=== PATIENT | female | born 1960 | race Asian ===

== ENCOUNTER 2023-02-11 18:51 | Emergency (ER) | payer BC, SELFPAY ==
[2023-02-11] VITALS (35 sets, daily range): BP systolic 126–146; BP diastolic 64–86; PULSE 81–99; RESP 15–27; TEMP 37.2; O2SAT 97–99
--- NOTE | 2023-02-11 18:45 | RT.EKG_ITS ---
APPROVED REPORT Exam: Resting ECG Reason for Exam: chest pain Patient Location: E HR:91 bpm ECG Measurements Heart Rate 91 AXIS MS 145 P 32 QRSd 99 QRS 9 QT 376 T 10 QTc 464 Conclusion Sinus rhythm...normal P axis, V-rate 60- 99
--- NOTE | 2023-02-11 19:25 | DI.CT_ITS ---
Exam(s) CT THORAX ABD/PEL CTA EXAM: CT THORAX ABD/PEL CTA CLINICAL HISTORY: chest and central abdominal pain. TECHNIQUE: Imaging Protocol: Axial CT angiography was performed with multi-slice acquisition and mu lti-planar and/or 3D reconstructions. CONTRAST MATERIAL: Intravenous: Omnipaque 350 Contrast volume:100 ml COMPARISON: No exams were available for comparison FINDINGS: CHEST: Pulmonary Arteries: No evidence of filling defect to suggest pulmonary emboli. Tracheobronchial tree: Patent where visualized. Mediastinum and Vera: No dominant adenopathy or fluid collection. Pulmonary parenchyma: Dependent changes and respiratory motion at the lung bases. No consolidation o r dominant measurable mass. Pleura: No effusion or pneumothorax. Heart: The heart is not dilated. No coronary artery calcifications are seen. Significant motion art ifact at proximal aorta and pulmonary artery. Aorta: Ascending aorta measures 3.7 cm. No significant atherosclerotic changes. Bones: Normal. Tubes, Catheters, and Lines: None ABDOMEN: Liver: Normal density. No measurable mass. Portal, Superior Mesenteric, and Splenic Veins: Unremarkable. Gallbladder and Biliary Tract: No radiodense calculus or dilation. Pancreas: Normal density, no abnormal calcifications or inflammatory process. Spleen: Normal. Adrenals: No masses seen. Kidneys: Normal size, contour and axis. No radiodense stones or obstructive uropathy. No masses seen. Vasculature:: Abdominal aorta non-dilated. No visible atherosclerotic changes. No branch vessel occ lusion or significant stenosis. The celiac axis and SMA patent. Bowel: No obstruction or bowel wall thickening. Appendix is unremarkable. Moderate to increased sto ol. Small diverticulum of the descending duodenum. Peritoneal Cavity: No ascites, collection or mesenteric inflammatory response. Lymph Nodes: Within normal limits. Bones: Unremarkable. Soft Tissues: Unremarkable. PELVIS: Bladder: Symmetric distention, no gross wall thickening. Reproductive Organs: Unremarkable as visualized. Lymph Nodes: Within normal limits. Bones: Within normal limits. IMPRESSION: 1. No evidence of pulmonary embolism or other acute abnormality in the chest. No significant atheros clerotic changes. 2. No acute abdominal or pelvic process. RADIATION DOSE DELIVERED: 893.44mGy.cm Total DLP DATA REPOSITORY: All CT scans at this facility are submitted to the National Radiology Data Registry (NRDR) Dose Index Registry (DIR) with the [employer] (ACR). RADIATION OPTIMIZATION: All CT scans at this facility use at least one of these dose optimization te chniques: automated exposure control; mA and/or kV adjustment per patient size (includes targeted exa ms where dose is matched to clinical indication); or iterative reconstruction.
--- NOTE | 2023-02-11 19:26 | ED.GENADUL_ITS ---
Discharge Plan Disposition Patient Disposition: Home Condition: Stable Discharge Details Clinical Impression: Epigastric abdominal pain, Chest pain, Thrombocytopenia, Transaminitis Primary Care Provider: Unknown,Unknown ED Provider: Jaspal Leon Home Meds and New Rx's Prescriptions: New famotidine [Pepcid] 20 mg tablet 20 mg PO BID Qty: 60 0RF alum-mag hydroxide-simeth [Mylanta Maximum Strength] 400-400-40 mg/5 mL suspension 5 ml PO BID Qty: 355 0RF Discontinued omeprazole 20 mg Capsule,Delayed Release(Dr/Ec) 20 mg PO DAILY Discharge Instructions Instructions: Thrombocytopenia (ED), Epigastric Pain (ED) Additional Instructions: Your liver function test were elevated today. Your platelet counts were low. This needs to be followed by your doctor and additional diagnostic testing and treatment may be necessary. Please stop taking omeprazole. Blood testing is pending at time of discharge. Please be sure to follow-up with your primary care physician this week to review results and for reassessment. You should have a endoscopy performed. Please contact your primary care physician to arrange follow-up. Return to the ER immediately for any worsening or new concerning symptoms. Referrals: [facility] [Provider Group] [facility] [Provider Group] Medical Decision Making 1932 -- 62-year-old female with history of GERD, on PPI, here with epigastric abdominal pain occurring daily over the past 3 weeks as well as intermittent less frequent chest discomfort. Patient is hemodynamically stable. She does have epigastric abdominal tenderness with no peritoneal findings. She has no chest pain at this time. Considered ACS. EKG was reviewed and interpreted by me: Please report, sinus rhythm 91 bpm, normal axis, no STEMI, nondiagnostic. Concern for intra-abdominal surgical process including AAA versus gastric ulcer versus pancreatitis. Plan to obtain CTA of the chest abdomen pelvis. -- Labs reviewed: transaminitis and thrombocytopenia noted. Patient denies rash, fever, recent known tick bite. I will send tick panel. 2121 -- CT of the abd and pelv reviewed and interpreted by radiology: Mild dilatation of the ascending aorta measuring 3.65 cm. No evidence of aortic dissection. No significant atherosclerotic changes, arterial stenosis or occlusion. Mild degenerative changes in the lumbar spine. Gallbladder and bile ducts noted to be unremarkable with no calcified stones and no ductal dilatation. Liver noted no mass. Lungs do have mild patchy groundglass opacity in bilateral lower lungs and lingula. I have contacted [facility] to consult with hematology regarding thrombocytopenia. 2152 --patient reassessed and notes symptoms improved with Mylanta and Pepcid. I spoke with Dr. Ross, hematology special population paraprofessional at [facility], discussed ED presentation and course. He recommends sending additional blood test including peripheral smear to look for platelet clumping that would be indicative of pseudothrombocytopenia, folate, B12, copper, fibrinogen, coags. He does recommend stopping PPI as this may cause bone marrow suppression. Plan to initiate treatment with Pepcid and Mylanta. I will ask care management to help arrange outpatient follow-up with PCP. Patient will need close outpatient follow-up in the next couple days to follow-up on labs and reassess. Lab Data Lab results reviewed: Yes I reviewed the patient's lab results. Labs: Laboratory Tests Range/Units 02/11/23 02/11/23 19:20 19:20 WBC (4.4-10.8) 10^3/uL 4.07 L RBC (3.93-5.22) 10^6/uL 4.47 Hgb (11.2-15.7) g/dL 12.2 Hct (36.0-46.0) % 36.9 MCV (80-95) fL 83 MCH (27.0-33.0) pg 27.3 MCHC (32.0-36.0) % 33.1 RDW (11.7-14.6) % 17.8 H Plt Count (130-400) 10^3/uL 43 L MPV (8.0-11.0) fL 11.1 H Immature Gran % 0.0 Neutrophils % 34.0 Band Neutrophils % 2 Lymphocytes % 55.0 Atypical Lymphs % 5 Monocytes % 2.0 Eosinophils % 2.0 Basophils % 0.0 Nucleated RBC % (0.0-0.3) % 2.0 H Absolute Neutrophils (1.2-6.7) 10^3/uL 1.47 Absolute Lymphocytes (1.2-3.4) 10^3/uL 2.44 Absolute Monocytes (0.1-0.8) 10^3/uL 0.08 L Absolute Eosinophils (0.0-0.7) 10^3/uL 0.08 Absolute Basophils (0.0-0.2) 10^3/uL 0.00 RBC Morphology See Below Polychromasia Present Sodium (136-145) mmol/L 140 Potassium (3.5-5.1) mmol/L 3.9 Chloride (98-107) mmol/L 104 Carbon Dioxide (21.0-32.0) mmol/L 21.9 Anion Gap (3-11) mmol/L 14.1 H BUN (7-18) mg/dL 15 Creatinine (0.55-1.02) mg/dL 0.8 Est GFR (CKD-EPI 2020) (mL/min/1.73m2) 84.30 Glucose (74-106) mg/dL 89 Calcium (8.5-10.1) mg/dL 9.6 Magnesium (1.8-2.4) mg/dL 1.8 Total Bilirubin (0.2-1.0) mg/dL 2.0 H AST (15-37) U/L 155 H ALT (14-59) U/L 223 H Alkaline Phosphatase (46-116) U/L 275 H Troponin I (<or=60) ng/L < 50 Total Protein (6.4-8.2) g/dL 7.7 Albumin (3.4-5.0) g/dL 3.8 Lipase (16-77) U/L 65 HPI General Mode of arrival: ambulatory . Date/Time Provider Initiated Documentation: 02/11/23 19:03 . Limitations to Documentation: no limitations . Information obtained by: patient . HPI Narrative: 62-year-old female with history of GERD, on PPI chronically, here with chief complaint of abdominal pain. Patient notes upper abdominal pain that is been intermittent but occurring daily over the past 3 weeks. Discomfort is described as an ache and burning. Discomfort does radiate to her left back at times. Patient also notes intermittent chest discomfort described as tightness that occurs less frequently. Patient currently does have mild abdominal discomfort in her epigastric area. Patient denies nausea, vomiting, diarrhea, melena and bright red blood per rectum. She has never had a colonoscopy or endoscopy. Related Data Home Medications Medication Instructions Recorded Confirmed aluminum-mag hydroxide-simethicone 5 ml PO BID reflux #355 mL 02/11/23 400 mg-400 mg-40 mg/5 mL oral susp (Mylanta Maximum Strength) famotidine 20 mg tablet (Pepcid) 20 mg PO BID #60 tabs 02/11/23 Previous Rx's Medication Instructions Recorded aluminum-mag hydroxide-simethicone 5 ml PO BID reflux #355 mL 02/11/23 400 mg-400 mg-40 mg/5 mL oral susp (Mylanta Maximum Strength) famotidine 20 mg tablet (Pepcid) 20 mg PO BID #60 tabs 02/11/23 Allergies Allergy/AdvReac Type Severity Reaction Status Date / Time No Known Allergies Allergy Unverified 02/11/23 19:09 General Stated Complaint: Chest Pain RADHA: 3 PFSH All Active Problems (Updated 02/11/23 @ 22:28 by Jaspal Leon MD) Epigastric abdominal pain (Acute) Chest pain (Acute) Thrombocytopenia (Chronic) Transaminitis (Acute) Social History Smoking/Tobacco Use Status: Never Smoking risk assessment performed?: Yes Alcohol Intake: former Substance use type: does not use Do you feel safe at home: Yes Do you feel safe in your relationship?: Yes Exam Const General: cooperative and no acute distress HENMT Mouth: moist mucous membranes Eyes Conjunctivae: normal conjunctivae Sclera: normal sclerae Neck Neck: trachea midline and supple Resp Auscultation: clear to auscultation bilaterally, no rales, no rhonchi and no wheezes Cardio Rate: regular rate and not tachycardic Rhythm: regular rhythm Heart Sounds: no murmurs GI Palpation: soft, not firm, no guarding, no masses, not rigid and tender in the epigastrum Skin General skin exam: no rashes or lesions noted Neuro General: patient alert, patient awake and tone normal Extrem General: no edema Psych Appearance: grossly normal Mental Status: mental status grossly normal Course Vital Signs Vital signs: Vital Signs Temperature 37.2 C 02/11/23 19:00 Pulse 97 H 02/11/23 19:00 Respiratory Rate 22 02/11/23 19:00 Blood Pressure 143/82 H 02/11/23 19:00 Pulse Oximetry 98 02/11/23 19:00 Temperature 37.2 C 02/11/23 19:00 Temperature Source Oral 02/11/23 19:00 Pulse 97 H 02/11/23 19:00 Respiratory Rate 22 02/11/23 19:00 Respiratory Effort Normal 02/11/23 19:04 Respiratory Depth Normal 02/11/23 19:04 Respiratory Pattern Normal 02/11/23 19:04 Blood Pressure 143/82 H 02/11/23 19:00 Blood Pressure Position Supine 02/11/23 19:00 Pulse Oximetry 98 02/11/23 19:00 Oxygen Delivery Method Room Air 02/11/23 19:00 Oxygen Flow Rate 0 02/11/23 19:00 Pain Level 5 02/11/23 19:00
[2023-02-11 19:39] LABS: HCT 36.9 % (36.0-46.0); HGB 12.2 g/dL (11.2-15.7); MCH 27.3 pg (27.0-33.0); MCHC 33.1 % (32.0-36.0); MCV 83 fL (80-95); MPV 11.1 fL (8.0-11.0); RBC 4.47 10^6/uL (3.93-5.22); RDW 17.8 % (11.7-14.6); RDW-SD 51.1 fL; WBC 4.07 10^3/uL (4.4-10.8)
[2023-02-11] MEDS: Normal Saline Flush 10 ML SYR IVP ×2 (19:49→20:20)
[2023-02-11] MEDS: Famotidine 20 MG/2 ML VIAL IVP (19:49)
[2023-02-11] MEDS: Mylanta Suspension 30 ML CUP PO (19:49)
[2023-02-11 19:56] LABS: ALT 223 U/L (14-59); AST 155 U/L (15-37); Albumin 3.8 g/dL (3.4-5.0); Alkaline Phosphatase 275 U/L (46-116); Anion Gap 14.1 mmol/L (3-11); BUN 15 mg/dL (7-18); CO2 21.9 mmol/L (21.0-32.0); CREATININE 0.8 mg/dL (0.55-1.02); Calcium 9.6 mg/dL (8.5-10.1); Chloride 104 mmol/L (98-107); Glucose 89 mg/dL (74-106); Lipase 65 U/L (16-77); Magnesium 1.8 mg/dL (1.8-2.4); Potassium 3.9 mmol/L (3.5-5.1); Sodium 140 mmol/L (136-145); Total Protein 7.7 g/dL (6.4-8.2); Troponin I < 50 ng/L (<or=60)
[2023-02-11 19:58] LABS: Absolute Eosinophil Count 0.08 10^3/uL (0.0-0.7); Absolute Lymphocyte Count 2.44 10^3/uL (1.2-3.4); Absolute Monocyte Count 0.08 10^3/uL (0.1-0.8); Absolute Neutrophil Count 1.47 10^3/uL (1.2-6.7); Atypical Lymphocytes % 5; Bands % 2; Platelet Count 43 10^3/uL (130-400)
[2023-02-11 19:59] LABS: Diff Comment Manual Differential; Polychromasia Present
[2023-02-11] MEDS: Omnipaque 350 MG/ML 100 ML BTL IJ (20:20)
[2023-02-11] MEDS: Normal Saline - Diluent 50 ML VIAL IJ (20:20)
--- NOTE | 2023-02-11 21:18 | DI.VRAD_ITS ---
PROCEDURE INFORMATION: Exam: CTA Chest With Contrast CTA Abdomen and Pelvis With Contrast Exam date and time: 02/11/2023 8:25 PM Age: 62 years old Clinical indication: Other: Chest and central abdominal pain; Generalized TECHNIQUE: Imaging protocol: Computed tomographic angiography of the chest with contrast. Exam focused on the arteries. Computed tomographic angiography of the abdomen and pelvis with contrast. Exam focused on the arteries. 3D rendering (Not supervised by radiologist): MIP and/or 3D reconstructed images were created by the technologist. Radiation optimization: All CT scans at this facility use at least one of these dose optimization techniques: automated exposure control; mA and/or kV adjustment per patient size (includes targeted exams where dose is matched to clinical indication); or iterative reconstruction. Contrast material: OMNI 350; Contrast volume: 100 ml; Contrast route: INTRAVENOUS (IV); COMPARISON: No relevant prior studies available. FINDINGS: VASCULATURE: Pulmonary arteries: Normal. No pulmonary emboli. Aorta: There is mild fusiform dilation of the ascending aorta measuring maximum diameter of 3.65 cm. No evidence of aortic dissection Celiac trunk and mesenteric arteries: No occlusion or significant stenosis. Renal arteries: No occlusion or significant stenosis. Right iliac arteries: No occlusion or significant stenosis. Left iliac arteries: No occlusion or significant stenosis. CHEST: Lungs: Mild patchy ground-glass opacity noted in the bilateral lower lungs and lingula. Pleural spaces: Unremarkable. No pneumothorax. No pleural effusion. Heart: Unremarkable. No cardiomegaly. No pericardial effusion. ABDOMEN AND PELVIS: Liver: No mass. Gallbladder and bile ducts: Unremarkable. No calcified stones. No ductal dilation. Pancreas: Unremarkable. No mass. No ductal dilation. Spleen: Unremarkable. No splenomegaly. Adrenal glands: Unremarkable. No mass. Kidneys and ureters: Unremarkable. No solid mass. No hydronephrosis. Stomach and bowel: Unremarkable. No obstruction. No mucosal thickening. Appendix: No evidence of appendicitis. Intraperitoneal space: Unremarkable. No free air. No significant fluid collection. Urinary bladder: Unremarkable. No mass. Reproductive: Unremarkable as visualized. Lymph nodes: Unremarkable. No enlarged lymph nodes. Bones/joints: Mild degenerative changes noted in the lumbar spine. No vertebral body compression or acute fracture Soft tissues: Unremarkable. IMPRESSION: 1. Mild dilation of the ascending aorta measuring 3.65 cm. No evidence of aortic dissection. No significant atherosclerotic changes, arterial stenosis or occlusion. 2. Mild degenerative changes in the lumbar spine Dictated and Authenticated by: Roosevelt Wasserman MD. Ordering:ROSALIND Shay MD
--- NOTE | 2023-02-11 22:37 | NUR.NOTE ---
Referral to Care Management to expedite patient appointment with [facility] from March to 02/13/22 for thrombocytopenia, elevated LFT's, chest pain.Nursing Note:
[2023-02-11 22:39] LABS: INR 1.1 (0.9-1.1); PTT Activated 28.7 sec (21.5-31.9); Prothrombin Time 10.9 sec (9.3-11.0)
[2023-02-11 22:43] LABS: Troponin I < 50 ng/L (<or=60)
[2023-02-11 22:52] LABS: Bands % 3
[2023-02-11 22:54] LABS: Atypical Lymphocytes % 5
[2023-02-11 22:59] LABS: Diff Comment MAN
[2023-02-11 23:00] LABS: RBC Morphology Normal
[2023-02-11 23:05] LABS: Folate 7.9 ng/mL (8.6-20.0); Vitamin B12 328 pg/mL (193-986)
[2023-02-12 17:45] LABS: Fibrinogen 352 mg/dL (171-384)
[2023-02-13 12:10] LABS: Lyme Ab w Rflx to Lyme Confirm Negative (Negative)
[2023-02-13 19:21] LABS: Copper, Serum 136 mcg/dL (77-206)
[2023-02-15 17:52] LABS: Anaplasma phagocytophilum Negative (Negative); B. miyamotoi PCR Negative (Negative); Babesia divergens/MO-1 Negative (Negative); Babesia duncani Negative (Negative); Babesia microti Negative (Negative); Ehrlichia chaffeensis Negative (Negative); Ehrlichia ewingii/canis Negative (Negative); Ehrlichia muris eauclairensis Negative (Negative)
== END 2023-02-11 22:55 | disposition home or self-care (01) ==
PROVIDERS: Emergency Provider Student in an Organized Health Care Education/Training Program
DX: R10.13 Epigastric pain (principal); R07.9 Chest pain, unspecified; D69.6 Thrombocytopenia, unspecified; R74.01 Elevation of levels of liver transaminase levels; K21.9 Gastro-esophageal reflux disease without esophagitis
CPT/HCPCS: 71275; 80053; 82525; 83690; 85384; 87798; 93005; 96374; 99285; 74174; 82607; 82746; 83735; 84484; 85007; 85025; 85610; 85730; 86618; 93010; 99284; J3490

== ENCOUNTER 2023-02-26 16:28 | Outpatient (REF) | payer BC, SELFPAY ==
[2023-03-02 15:06] LABS: Helicobacter pylori Ag, Feces Positive (Negative)
== END 2023-02-26 16:29 | disposition home or self-care (01) ==
LOC: LBN 16:28
PROVIDERS: Visit Provider Nurse Practitioner Family
DX: R10.13 Epigastric pain (principal)
CPT/HCPCS: 87338

== ENCOUNTER 2023-03-02 00:26 | Outpatient (CLI) | payer BC, SELFPAY ==
--- NOTE | 2023-03-02 06:00 | ETT_ITS ---
APPROVED REPORT Exam: Exercise Treadmill Patient Location: Out-Patient Room/Bed: Stress Nurse: Azucena Garvin RN Ordering Provider:CHRISSY QURESHI, Contact Number: [phone] BMI: 27.97 Baseline Rhythm: Sinus Rhythm Indications: Chest Pain Medical History Medical History: AAA, Chest pain, thrombocytopenia, transaminitis Cardiac Medications: Pepcid Allergies: NKA Cardiac Risk Factors: None Previous Cardiac Procedures: None Pretest Chest Pain Characteristics: Stomach Pain Exercise History: Sedentary Physical Disabilities: None Lung Sounds: Clear to auscultation Heart Sounds: Regular Stress Test Details Test: Exercise stress testing was performed using a Jamar protocol. Rest Stress HR Resting HR Supine: 85 bpm Max Heart Rate (APMHR): 160 bpm Resting HR Standin bpm Target HR (85% APMHR): 136 bpm Max HR Achieved: 132 bpm % of APMHR: 83 Recovery HR: 90 bpm HR response to stress: Normal HR response to stress BP Resting BP Supine: 132/90 mmHg Resting BP Standin/84 mmHg Max BP: 144/88 mmHg Recovery BP: 130/84 mmHg BP response to stress: Normal blood pressure response to stress. ECG Resting ECG: Sinus Rhythm Ectopy: None Stress ECG: Sinus Tachycardia ST Change: No significant ST segment changes noted Arrhythmia: None Recovery ECG: Sinus Rhythm Recovery ST Change: No significant ST segment changes noted Recovery Arrhythmia: None Clinical Reason for Termination: Fatigue Stress Symptoms: Stomach Pain Exercise duration: 5 min24 sec Highest Stage Reached: Stage 2: 2.5 mph at 12% grade. Exercise capacity: 7.05 METs Angina Score: None Black Treadmill Score: 4.8 Rate Pressure Product: [id number] Stress ECG Conclusion 1. The resting electrocardiogram was normal 2. Patient exercised on the Jamar protocol and completed a workload of 7.05 METS 3. Peak heart rate achieved was 83% of predicted for age 4. Electrocardiographically the test was nondiagnostic due to inadequate heart rate. At that level o f exercise there was no evidence of myocardial ischemia Black Treadmill Score is 4.8 which is Moderate risk. Stress Test Summary STAGE Time (mins) Speed (mph) Grade (%) HR BP SpO2 SYMPTOMS METS Supine 85 132/90 Standing 102 138/84 1 3 1.7 10 120 4.5 1 min recovery 119 134/74 3 min recovery 92 144/88 6 min recovery 90 130/84 Non-Diagnostic, unable to reach THR. Stomach pain noted, however patient reports she has had the same stomach pain for 2 weeks. No other significant symptoms noted.
== END 2023-03-02 00:46 ==
LOC: DI 00:26
PROVIDERS: Visit Provider Nurse Practitioner Family
DX: R07.9 Chest pain, unspecified (principal)
CPT/HCPCS: 93017

== ENCOUNTER 2023-03-30 13:37 | Inpatient (IN) | payer BC, SELFPAY ==
[2023-03-30] VITALS (44 sets, daily range): BP systolic 106–141; BP diastolic 62–89; PULSE 83–104; RESP 15–24; TEMP 36.1–36.7; O2SAT 97–100
--- NOTE | 2023-03-30 | DI.CT_ITS ---
Exam(s) CT HEAD WO EXAM: CT HEAD WO CLINICAL HISTORY: headache, thrombocytopenia. TECHNIQUE: Imaging Protocol: Axial computed tomography images with coronal and sagittal reformatted images were created and reviewed COMPARISON: No exams were available for comparison FINDINGS: Ventricles and Extra axial spaces: Normal in size and morphology for the patient's age. Hemorrhage: None. Cerebral parenchyma: Normal. Midline shift: None. Brainstem/Cerebellum: Normal. Calvarium: Normal. Visualized Paranasal sinuses/Mastoids: Clear. Soft Tissues: Unremarkable. IMPRESSION: No acute intracranial process. RADIATION DOSE DELIVERED: 674.64mGy.cm Total DLP DATA REPOSITORY: All CT scans at this facility are submitted to the National Radiology Data Registry (NRDR) Dose Index Registry (DIR) with the [employer] (ACR). RADIATION OPTIMIZATION: All CT scans at this facility use at least one of these dose optimization te chniques: automated exposure control; mA and/or kV adjustment per patient size (includes targeted exa ms where dose is matched to clinical indication); or iterative reconstruction.
--- NOTE | 2023-03-30 13:53 | ED.GENADUL_ITS ---
Discharge Plan Disposition Patient Disposition: Admit to [facility] Discharge Details Clinical Impression: Thrombocytopenia, Anemia, Leukopenia, Hepatitis Admit Date/Time: 03/30/23 17:16 Admit Provider: Tra Pagan Attending Provider: Tra Pagan Primary Care Provider: Kannan Haro ED Provider: Zane Patel Discharge Data Discharge Date/Time-TO BE ENTERED AT DEPARTURE: 03/30/23 18:23 Medical Decision Making <Lam Isaac NP - Last Filed: 04/03/23 10:14> Patient being referred to the emergency department for chief complaint of abdominal pain and severely low platelets. Patient was seen at primary care office today and I spoke with Dr. Ozuna in regards to patient's case. Patient has been having abdominal pain for the past 2 months. She has a history of GERD and has been using omeprazole. Then tested positive for H. pylori which she took the antibiotics but over the last week or more she has noted some increased pain and discomfort. Only medication patient is on is omeprazole. Patient does have a language barrier as she is Japanese but her daughter speaks wonderful [place] and prefers to translate. Patient reports intermittent slight nosebleeds over the past couple weeks and some atypical bruising. Denies any vomiting blood, bloody bowel movements, blood in urination. Physical exam shows stable appearing patient with no hypotension, upper limits of normal for heart rate, patient does have tenderness in the right and left upper quadrants but otherwise exam is nondiagnostic. Patient does state slight dripping bloody nose but none noted on my initial exam. Will order labs including type and screen and did speak with daughter and patient in regards to high likelihood of transfusion. Reviewed patient's labs and patient does have slight anemia with hemoglobin of 8.1, she does have a emergent platelet count of 6. INR is 1.1, does have low carbon dioxide of 18.3, anion gap of 18.7, of concern patient has a bilirubin of 2.3, AST of 97, ALT is within normal range of 36 but alk phos is severely elevated at 557 with an albumin slightly low at 3.2. Lipase is normal. Review of urinalysis does show high specific gravity, trace blood proteins and some ketones are noted. Of concern was patient is positive for nitrites and has many bacteria present with a reflexive culture ordered. Will give patient fosfomycin. Patient is O+. Did discuss with patient and daughter risk versus benefit of platelet transfusion which after full discussion of this they were agreeable and 2 units were ordered. Will also perform CT imaging of the abdomen to make sure there is no internal bleeding or any other abnormalities given worsening abdominal pain. Patient signed out pending CT imaging, arrival of platelets to begin transfusion, and further discussion of case with hospitalist for admission. Lab Data Lab results reviewed: Yes I reviewed the patient's lab results. <Zane Patel MD - Last Filed: 03/30/23 19:37> Patient being referred to the emergency department for chief complaint of abdominal pain and severely low platelets. Patient was seen at primary care office today and I spoke with Dr. Ozuna in regards to patient's case. Patient has been having abdominal pain for the past 2 months. She has a history of GERD and has been using omeprazole. Then tested positive for H. pylori which she took the antibiotics but over the last week or more she has noted some increased pain and discomfort. Only medication patient is on is omeprazole. Patient does have a language barrier as she is Japanese but her daughter speaks wonderful [place] and prefers to translate. Patient reports intermittent slight nosebleeds over the past couple weeks and some atypical bruising. Denies any vomiting blood, bloody bowel movements, blood in urination. Physical exam shows stable appearing patient with no hypotension, upper limits of normal for heart rate, patient does have tenderness in the right and left upper quadrants but otherwise exam is nondiagnostic. Patient does state slight dripping bloody nose but none noted on my initial exam. Will order labs including type and screen and did speak with daughter and patient in regards to high likelihood of transfusion. Reviewed patient's labs and patient does have slight anemia with hemoglobin of 8.1, she does have a emergent platelet count of 6. INR is 1.1, does have low carbon dioxide of 18.3, anion gap of 18.7, of concern patient has a bilirubin of 2.3, AST of 97, ALT is within normal range of 36 but alk phos is severely elevated at 557 with an albumin slightly low at 3.2. Lipase is normal. Review of urinalysis does show high specific gravity, trace blood proteins and some ketones are noted. Of concern was patient is positive for nitrites and has many bacteria present with a reflexive culture ordered. Will give patient fosfomycin. Patient is O+. Did discuss with patient and daughter risk versus benefit of platelet transfusion which after full discussion of this they were agreeable and 2 units were ordered. Will also perform CT imaging of the abdomen to make sure there is no internal bleeding or any other abnormalities given worsening abdominal pain. HPI <Lam Isaac NP - Last Filed: 04/03/23 10:14> General Mode of arrival: ambulatory . Date/Time Provider Initiated Documentation: 03/30/23 13:53 . Limitations to Documentation: language barrier . Information obtained by: patient, family, RN/MD and RN notes reviewed . History of Present Illness 62 year old F presents to the emergency department with the chief complaint of Abdominal pain, severely low platelets, described as moderate and similar to prior episodes, Quality is described as aching, and is localized to the abdomen. Patient started experiencing this month(s) (2) and it has been constant. No relieving factors improve symptom(s), No exacerbating factors reported . Patient did receive the following treatments prior to arrival, none Related Data Home Medications Medication Instructions Recorded Confirmed omeprazole 20 mg capsule,delayed 20 mg PO DAILY #60 caps 03/30/23 03/30/23 release Previous Rx's Medication Instructions Recorded omeprazole 20 mg capsule,delayed 20 mg PO DAILY #60 caps 03/30/23 release Allergies Allergy/AdvReac Type Severity Reaction Status Date / Time No Known Allergies Allergy Unverified 03/30/23 13:56 General Stated Complaint: Abd Prob RADHA: 3 Review of Systems <GAVINO Aragon Last Filed: 04/03/23 10:14> Constitutional Constitutional: Denies chills, Denies fever(s) and Reports malaise ENT Ears, Nose, Mouth, and Throat: Reports epistaxis Cardiovascular Cardiovascular: Denies chest pain, Denies syncope and Denies dyspnea Respiratory Respiratory: Denies cough and Denies dyspnea Gastrointestinal Gastrointestinal: Reports as per HPI, Reports abdominal pain, Denies hematochezia, Reports nausea and Reports vomiting Genitourinary Genitourinary: Denies hematuria Integumentary/Breasts Skin/Breast: Reports unusual bruising Neurologic Neurologic: Denies syncope Hematologic/Lymphatic Hematologic/Lymphatic: Reports as per HPI, Reports easy bleeding and Reports easy bruising [facility] <Lam Isaac NP - Last Filed: 04/03/23 10:14> All Active Problems (Updated 04/01/23 @ 00:14 by JANELLE DOMINGUEZ) Elevated transaminase level (Acute) UTI (urinary tract infection) (Acute) Folic acid deficiency (Acute) Alkaline phosphatase elevation (Acute) Hyperbilirubinemia (Acute) Abnormal weight loss (Acute) Pancytopenia (Acute) Thrombocytopenia (Chronic) Anemia (Chronic) Leukopenia (Acute) Acute hepatitis (Acute) Helicobacter positive gastritis (Acute) AAA (abdominal aortic aneurysm) (Chronic) 02/11/2023 CT scan at ER: 3.65 CM --> annual US for now; discuss ASA and statin w/ pt Note that this is an incorrect diagnosis. No AAA was noted on either CT scan form either 02/11/23 nor from 03/30/23. She has dilated ascending thoracic aorta of 3.65 cm (addendum added per Dr. Pagan) Please make correction in patient's office note Social History Smoking/Tobacco Use Status: Never Second Hand Exposure: No Smoking risk assessment performed?: Yes Alcohol Intake: former Drug use: Never Substance use type: does not use Adopted: No Caregiver/Support person: No Foster care: No Household members: family Housing: house Number of Children: 4 Communication Needs: Language Barriers Do you need help understanding health information?: Always Pets and animals: No Sexually active: No Do you think of yourself as: straight/heterosexual Current gender identity: female What is your relationship status?: How often do you talk on the phone with friends or family?: once per week How often do you get together with friends or relatives?: once per week Do you belong to any clubs or organized social groups?: no Panel score (0-1 are the most socially isolated patients): 1 Emilia/Tenriism: Bahai Special emilia needs: No Seatbelt use: always Helmet use: Yes Helmet use: always Drive intox or ride w/intox commercial driver's license driver: No Do you feel safe at home: Yes Do you feel safe in your relationship?: Yes Exam <Lam Isaac NP - Last Filed: 04/03/23 10:14> Const General: cooperative Orientation: alert, awake and oriented x3 Resp Effort & Inspection: normal respiratory effort and able to speak in complete sentences Auscultation: clear to auscultation bilaterally Cardio Rate: regular rate Rhythm: regular rhythm Heart Sounds: S1 normal and S2 normal GI Palpation: soft, not firm, guarding in the RUQ, no masses, no pulsatile masses, not rigid, no splenomegaly and tender in the LUQ and in the RUQ Auscultation: normal bowel sounds Back/Spine/Pelvis Back: no CVA tenderness Neuro General: patient alert, patient awake, patient oriented x3, gait normal and moves all extremities <Zane Patel MD - Last Filed: 03/30/23 19:37> FAST Exam DATE OF EXAM: 03/30/23 TIME OF EXAM: 17:43 PROVIDER THAT PERFORMED THE STUDY: Zane Patel REASON FOR EXAM: Abdominal pain VISUALIZED STRUCTURES: Hepatorenal space, Pelvis and Perisplenic space DIFFERENTIAL DIAGNOSES: hepatosplenomegaly, normal CBD 6.4 mm, normal pancreas, normal portal vein, normal kidneys, normal aorta at SMA level Limited Transthoracic Exam: Exam complete Limited Abdominal Exam: Exam complete Limited Retroperitoneal Exam: Exam complete Sign Out <Lam Isaac NP - Last Filed: 04/03/23 10:14> Sign Out Data: Sign Out Comment: Patient pending CT scan and discussion of admission with hospitalist for suspected hepatitis with severe thrombocytopenia. Last updated by Lam Isaac NP at 03/30/23 15:39 <Zane Patel MD - Last Filed: 03/30/23 19:37> FAST Exam DATE OF EXAM: 03/30/23 TIME OF EXAM: 17:43 PROVIDER THAT PERFORMED THE STUDY: Zane Patel REASON FOR EXAM: Abdominal pain VISUALIZED STRUCTURES: Hepatorenal space, Pelvis and Perisplenic space Limited Transthoracic Exam: Exam complete Limited Abdominal Exam: Exam complete Limited Retroperitoneal Exam: Exam complete
[2023-03-30 14:18] LABS: HCT 24.8 % (36.0-46.0); HGB 8.1 g/dL (11.2-15.7); MCH 32.1 pg (27.0-33.0); MCHC 32.7 % (32.0-36.0); MCV 98 fL (80-95); RBC 2.52 10^6/uL (3.93-5.22); RDW 22.5 % (11.7-14.6); RDW-SD 78.7 fL; WBC 3.28 10^3/uL (4.4-10.8)
[2023-03-30 14:32] LABS: INR 1.1 (0.9-1.1); PTT Activated 27.9 sec (21.5-31.9); Prothrombin Time 11.3 sec (9.3-11.0)
--- NOTE | 2023-03-30 14:32 | NUR.NOTE ---
Nursing Note:dAUGHTER REMAINS IN ROOM W/PT. PT DOES NOT SPEAK PARAGUAYAN, REQUEST DAUGHTER TO TRANSLSATE, DAUGHTER COMFORTABLE & ATTENDS APPOINTMENTS W/MOTHER, PROVIDER AWARE.
[2023-03-30 14:36] LABS: ALT 36 U/L (14-59); AST 97 U/L (15-37); Albumin 3.2 g/dL (3.4-5.0); Alkaline Phosphatase 557 U/L (46-116); BUN 13 mg/dL (7-18); Bilirubin, Total 2.3 mg/dL (0.2-1.0); Calcium 9.2 mg/dL (8.5-10.1); Chloride 102 mmol/L (98-107); Estimated GFR 64.49 (mL/min/1.73m2); Glucose 103 mg/dL (74-106); Lipase 74 U/L (16-77); Magnesium 1.9 mg/dL (1.8-2.4); Potassium 4.2 mmol/L (3.5-5.1); Sodium 139 mmol/L (136-145); Total Protein 7.3 g/dL (6.4-8.2)
[2023-03-30 14:41] LABS: CO2 18.3 mmol/L (21.0-32.0)
[2023-03-30 14:42] LABS: Anion Gap 18.7 mmol/L (3-11)
[2023-03-30 14:46] LABS: Absolute Monocyte Count 0.03 10^3/uL (0.1-0.8); Absolute Neutrophil Count 0.72 10^3/uL (1.2-6.7); Atypical Lymphocytes % 2; Bands % 3; Platelet Count 6 10^3/uL (130-400)
[2023-03-30 14:47] LABS: Bilirubin Moderate (Negative); Blood Trace-intact (Negative); Clarity Clear (Clear); Glucose Negative (Negative); Ketones 40 mg/dL (Negative); Leukocyte Esterase Negative (Negative); Nitrite Positive (Negative); Specific Gravity >= 1.030 (1.005-1.025); pH 5.5 (5-8)
[2023-03-30 14:47] LABS: Absolute Basophil Count 0.07 10^3/uL (0.0-0.2); Anisocytosis 2+; Diff Comment Manual Differential; Metamyelocytes % 1; Myelocytes % 1; Other Cells % 3
[2023-03-30 15:00] LABS: Bacteria Many HPF (Negative); Casts Negative LPF (Negative); Crystals Negative HPF (Negative); Epithelial Cells Rare HPF (Negative); Mucus Trace (Negative); Other Cells Negative (Negative)
--- NOTE | 2023-03-30 15:00 | DI.CT_ITS ---
Exam(s) CT ABDOMEN PELVIS W EXAM: CT ABDOMEN PELVIS W CLINICAL HISTORY: Abdominal pain, abnormal LFTs and platelets TECHNIQUE: Imaging Protocol: Axial computed tomography images with coronal and sagittal reformatted images were created and reviewed CONTRAST MATERIAL: Intravenous: Omnipaque 350 Contrast volume:100 mL Oral: No COMPARISON: CT CT THORAX ABD/PEL CTA from 02/11/2023 FINDINGS: ABDOMEN: Lung Bases: Mild atelectatic changes are seen in the lung bases. Liver: Normal density. There is a 2-3 mm round hypodensity in the left lobe of the liver. It is too small for further characterization. Portal, Superior Mesenteric, and Splenic Veins: Unremarkable. Gallbladder and Biliary Tract: No radiodense calculus or dilation. Pancreas: Normal density, no abnormal calcifications or inflammatory process. Spleen: Normal. Adrenals: No masses seen. Kidneys: Normal size, contour and axis. No radiodense stones or obstructive uropathy. No masses seen. Abdominal Aorta: Abdominal portion non-dilated. Bowel: No obstruction or bowel wall thickening. There is no evidence of appendicitis. There is a div erticulum associated with the duodenum adjacent to the head of the pancreas. Peritoneal Cavity: No ascites, collection or mesenteric inflammatory response. No free air. Lymph Nodes: Within normal limits. Bones: Within normal limits for the patient's age. Soft Tissues: Unremarkable. PELVIS: Bladder: Symmetric distention, no gross wall thickening. Reproductive Organs: Unremarkable as visualized. Lymph Nodes: Within normal limits. Bones: Within normal limits for the patient's age. IMPRESSION: 1. No acute abdominal or pelvic process. 2. Findings were discussed with Dr. Patel at 4:18 p.m. on 03/30/2023. RADIATION DOSE DELIVERED: 733.27mGy.cm Total DLP DATA REPOSITORY: All CT scans at this facility are submitted to the National Radiology Data Registry (NRDR) Dose Index Registry (DIR) with the [employer] (A[employer]). RADIATION OPTIMIZATION: All CT scans at this facility use at least one of these dose optimization te chniques: automated exposure control; mA and/or kV adjustment per patient size (includes targeted exa ms where dose is matched to clinical indication); or iterative reconstruction.
[2023-03-30 15:01] LABS: C & S Indicated? Yes
[2023-03-30] MEDS: Fosfomycin Tromethamine 3 GM PACKET PO (15:30)
--- NOTE | 2023-03-30 15:50 | NUR.NOTE ---
Nursing Note:PT TO DI FOR ORDERED EXAMS, CONSENT FOR BLOOD/PRODUCTS OBTAINED, VSS.
[2023-03-30] MEDS: Normal Saline - Diluent 50 ML VIAL IJ (15:58)
[2023-03-30] MEDS: Omnipaque 350 MG/ML 100 ML BTL IJ (15:59)
[2023-03-30] MEDS: Normal Saline Flush 10 ML SYR IVP (15:59)
[2023-03-30] MEDS: methylPREDNISolone SUCC 125 MG VIAL IVP (16:07)
--- NOTE | 2023-03-30 16:08 | NUR.NOTE ---
Nursing Note: PT RETURN FROM DI, MONITORS RESUMED, MEDICATED PER EMAR, VSS.
[2023-03-30] MEDS: DOXYCYCLINE 100 MG in Normal Saline 100 ML IVPB (16:43)
[2023-03-30 17:29] LABS: Lactate 7.7 mmol/L (0.6-1.4)
--- NOTE | 2023-03-30 17:50 | W.EDPROG ---
Date of service: 03/30/23 Time of Service: 15:00 Medical Decision Making MDM: Summary: Patient was signed out to me by nurse tae daley who presents to the emergency department for she has been having chronic abdominal pain since October and was noted by the PCP that her platelets have been dropping normal. Patient also had some nosebleeds that prompted come to the emergency department. She was seen by the previous provider Data Review Analysis All the data on this patient was reviewed by me including laboratory and imaging studies as well as bedside studies performed by me Independent review of Studies Imaging [id number] ultrasound was done by me which shows large hepatosplenomegaly with a normal common bile duct normal pancreas Lab: Labs show leukopenia thrombocytopenia and anemia with elevated LFTs. I have ordered early Babesia titer but markers for with a myeloproliferative disorder. Patient will be admitted mostly for the thrombocytopenia. Risk Stratification: Patient with pancytopenia and hepatosplenomegaly could have infectious etiology such as ehrlichiosis or Babesia but also could be Millipore 3 disorder. Due to the fact that she is profoundly thrombocytopenic she would need to be admitted for her treatment and further studies Differential Diagnosis: 1. Ehrlichiosis 2.Mieloproliferative disorder 3. 4. 5. Consultants: Consulted with hospitalist who agrees the patient will need to be admitted for further work-up Shared disposition: patient understands disposition agrees and will remain hospitalized Impression: Leukopenia, thrombocytopenia, anemia, hepatosplenomegaly Lab Data Lab results reviewed: Yes I reviewed the patient's lab results. Exam Narrative Exam Narrative: Exam; vitals signs as reported above normal Constitutional; In no acute distress, afebrile General: cooperative, healthy appearing, comfortable and no acute distress HEENT: Head: normal to inspection, no palpable skull fracture and normocephalic atraumatic Eyes: l: appearance normal, both eyes and all related structures Pupils: PERRL : EOM intact bilaterally Direct ophthalmoscopy: normal light reflex, normal conjunctiva, normal visual acuity Neck no JVD, supple non tender Neck: normal visual inspection, full ROM and no lymphadenopathy Chest: normal inspection of the chest Respiratory : normal respiratory effort and able to speak in complete sentences no wheezing no rales Cardio Rate: regular rate Rhythm: regular rhythm normal heart sounds S1 and S2 no murmurs, gallops, or rubs GI : Mild distention with liver palpable 10 cm below the right costal margin Back/Spine/ no CVA tenderness Thoracic/Lumbar Spine: no tenderness or deformities Skin no rashes or lesions Neuro: patient alert and no meningeal signs, Cranial Nerves: CN's II-XI intact bilaterally, Cognition: normal cognition, Speech: speech normal, Gait: normal gait, Depp tendon reflexes normal 2+ Extremities, no edema, full range of motion, normal strength Sign Out Sign Out Data: Sign Out Comment: Patient pending CT scan and discussion of admission with hospitalist for suspected hepatitis with severe thrombocytopenia. Last updated by Lam Daley NP at 03/30/23 15:39 Discharge Plan Disposition Patient Disposition: Admit to [facility] Discharge Details Clinical Impression: Thrombocytopenia, Anemia, Leukopenia, Hepatitis Admit Date/Time: 03/30/23 17:16 Admit Provider: Tra Pagan Attending Provider: Tra Pagan Primary Care Provider: Kannan Haro ED Provider: Zane Patel Exam (ED) FAST Exam DATE OF EXAM: 03/30/23 TIME OF EXAM: 17:00 PROVIDER THAT PERFORMED THE STUDY: Zane Patel IS THIS A REPEAT EXAM DURING THIS ENCOUNTER: no REASON FOR EXAM: Abdominal pain VISUALIZED STRUCTURES: Hepatorenal space, Pelvis and Perisplenic space PERTINENT FINDINGS/IMPRESSION: other (Hepatomegaly, splenomegaly, normal pancreas normal IVC normal aorta at the level of the superior mesenteric artery) impression: Hepatosplenomegaly Limited Transthoracic Exam: Exam complete Limited Abdominal Exam: Exam complete Limited Retroperitoneal Exam: Exam complete
[2023-03-30 18:12] LABS: Procalcitonin 0.4 ng/mL
--- NOTE | 2023-03-30 18:43 | W.PM.HP.N ---
Date of service: 03/30/23 Time of Service: 18:43 Assessment and Plan Assessment and plan (1) Pancytopenia: Status: Acute Assessment and plan: Her constellation of symptoms including 20 lb wt loss, night sweats and findings of hepatosplenomegaly and pancytopenia and transaminitis and hyperbilirbunemia suggests occult malignancy such as an infiltrative process such as lymphoma. However complicating matter is her folate deficiency which could explain the macrocytic anemia but not the liver and spleen problems. 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 I will transfuse platelets tonight and replace. Of note her peripheral blood smear was read as showing 3% blast forms. I ordered lymphoma/leukemia panel. I have re[place]contacted [facility] [place] and spoke w/ heme/onc fellow, Raissa Guido who asked that patient's labs be faxed to her and images pushed to [facility]. (2) Abnormal weight loss: Status: Acute Assessment and plan: 20 lb wt loss over 3month period (3) Alkaline phosphatase elevation: Status: Acute (4) Hyperbilirubinemia: Status: Acute (5) Elevated transaminase level: Status: Acute (6) Folic acid deficiency: Status: Acute Assessment and plan: patient has ongoing loss of folate. I have put her on replacement at 5 mg daily, I sent off homocysteine and MMA acid levels. (7) UTI (urinary tract infection): Status: Acute Assessment and plan: patient was treated in the ED w/ fosfomycin. History of Present Illness History of Present Illness Chief Complaint: pancytopenia Narrative: 62-year-old female Ukrainian who had been in good health until 2-1/2 months ago when she started experiencing epigastric abdominal pain. Initially she self treated for GERD with omeprazole but when the pain became worse she presented to the emergency department on February 11, 2023 where she was diagnosed with transaminitis and thrombocytopenia. Because of some atypical chest pain a complete CTA of the chest abdomen pelvis was performed. This showed no acute pulmonary or abdominal or pelvic process according to the radiologist interpretation. Her CBC at that time showed moderate thrombocytopenia with a platelet count of 43,000, no anemia her hemoglobin is 12.2 g with an RBC count of 4.4 million. White blood cell count was borderline low at 4000. There was an increase in the nucleated red blood cells at 2% with polychromasia RDW count was increased to 17.8%. Her CMP at that time showed an elevated bilirubin of 2.0 with transaminases including an AST 155, ALT 223, alkaline phosphatase 275 and a normal albumin of 3.8 and total protein 7.7. The ED provider consulted with [facility] [place]. Ross who advised further studies including hepatitis studies, tick panel, copper level, folate B12 and coag studies and recommend that the patient's stop her omeprazole as it may be causing bone marrow suppression. Patient was switched to Pepcid and Mylanta as the patient had no primary care provider she was referred to [facility] internal medicine. B12 was normal (328) but folate was low (7.9). Tick panel was done and was negative. Hepatitis profile was never done. Patient did not get started on folate replacement. Patient was seen at [facility] internal medicine clinic for follow-up visits on 02/26/2023 and 03/09/2023 and 03/23/2023 as well as being called today to emergently come into the hospital for pancytopenia workup. Because of ongoing epigastric abdominal pain and atypical chest pain she was scheduled for stress MPI which was negative for ischemia. Stool was tested for Helicobacter pylori which was positive and the patient was treated with antibiotic therapy and she was put back on omeprazole. Patient was then referred for EGD which has yet to be performed. Follow-up labs were obtained and when they came back showing pancytopenia she was referred to the emergency department for further evaluation. CBC demonstrated Hb 8.3 gm, Hct 24%, macrocytosis MCV 98, RDW 22.6, WBC 3220, neutropenia ANC 770, ALC 2190, monocytes 0, platelets 6000. CMP demonstrated normal electrolytes and BUN and creatinine but elevated AG of 18.7, HCO3 18.3, lactate 7.7, total bili 2.3, direct bilirubin 1.4, alkaline phosphatase 559, AST 97, normal ALT 34, total protein 7.4, albumin 3.2. CT scan of abdomen and pelvis was done while in the ER as well as having her labs repeated to confirm her hyperbilirubinemia, elevated alkaline phosphatase and pancytopenia. CT abdomen and pelvis demonstrated hepatosplenomegaly although the official radiology report was read as normal. Both the ED provider and myself disagree w/ the interpretation by the radiologist and feel that it was misinterpreted. Patient states she has had about a 20 pound weight loss over the last 3 months and about a 4 pound weight loss over the last week. She now weighs at 144 pounds. She has been having night sweats for the last several weeks and worsening abdominal pain and nausea and headaches. She also has been having epistaxis but no vomiting, hematemesis, melena. Patient is admitted now for treatment of her thrombocytopenia and to have a workup of her pancytopenia. Heme/onc was not consulted by the ED but I have called both [facility] to try to get her transferred for a bone marrow biopsy. Neither place had capacity for transfer and indicated that they did not anticipate having bed capacity in near future although they welcomed me to call back tomorrow. Review of Systems All systems reviewed & are unremarkable except as noted in HPI and below PFSH All Active Problems (Updated 03/30/23 @ 21:09 by Tra Pagan MD) Elevated transaminase level (Acute) UTI (urinary tract infection) (Acute) Folic acid deficiency (Acute) Alkaline phosphatase elevation (Acute) Hyperbilirubinemia (Acute) Abnormal weight loss (Acute) Pancytopenia (Acute) Thrombocytopenia (Chronic) Anemia (Chronic) Leukopenia (Acute) Hepatitis (Acute) Acute hepatitis (Acute) Helicobacter positive gastritis (Acute) AAA (abdominal aortic aneurysm) (Chronic) 02/11/2023 CT scan at ER: 3.65 CM --> annual US for now; discuss ASA and statin w/ pt Note that this is an incorrect diagnosis. No AAA was noted on either CT scan form either 02/11/23 nor from 03/30/23. She has dilated ascending thoracic aorta of 3.65 cm (addendum added per Dr. Pagan) Please make correction in patient's office note Social History Smoking/Tobacco Use Status: Never Second Hand Exposure: No Smoking risk assessment performed?: Yes Alcohol Intake: former Drug use: Never Substance use type: does not use Adopted: No Caregiver/Support person: No Foster care: No Household members: family Housing: house Number of Children: 4 Communication Needs: Language Barriers Do you need help understanding health information?: Always Pets and animals: No Sexually active: No Do you think of yourself as: straight/heterosexual Current gender identity: female What is your relationship status?: How often do you talk on the phone with friends or family?: once per week How often do you get together with friends or relatives?: once per week Do you belong to any clubs or organized social groups?: no Panel score (0-1 are the most socially isolated patients): 1 Emilia/Muslim: Anabaptism Special emilia needs: No Seatbelt use: always Helmet use: Yes Helmet use: always Drive intox or ride w/intox driver manager: No Do you feel safe at home: Yes Do you feel safe in your relationship?: Yes Meds Allergies and Home Medications Allergies Allergy/AdvReac Type Severity Reaction Status Date / Time No Known Allergies Allergy Unverified 03/30/23 13:56 Home Medications Medication Instructions Recorded Confirmed Type omeprazole 20 mg capsule,delayed 20 mg PO DAILY #60 caps 03/30/23 03/30/23 Rx release Exam Narrative Exam Narrative: Thin Ukrainian female who does not speak Armenian but we were able to communicate through her family. Her daughter served as her interpreter translator. HEENT is remarkable for slight scleral icterus, full EOMI, no visual field deficits. Hearing grossly intact. Oropharynx noninjected no exudate. Upper denture in place lower teeth in fair repair. Nares without epistaxis Neck is supple nontender no JVD normal carotid pulses no cervical lymphadenopathy or thyromegaly. However she has some shotty lymph nodes in the right supraclavicular fossa. Lungs are clear to auscultation Breast exam is unremarkable no palpable breast masses and no axillary adenopathy. Heart is regular rate and rhythm without murmur rub or gallop Abdomen reveals small scar in the right upper quadrant with the patient states she had a cyst removed. Liver is markedly enlarged with the tip of the liver felt clear down into the right lower quadrant. Spleen is markedly enlarged. She has diffuse tenderness particularly in the right and left upper quadrant. There is no rebound tenderness. There is some voluntary guarding when palpated over the right or left upper quadrant. Bowel sounds are active. No inguinal lymphadenopathy. Rectal exam deferred. Pelvic exam deferred. Extremities without peripheral cyanosis or edema. She has no epitrochlear lymph nodes. Neuroexam is grossly intact no focal motor or sensory deficits. She has normal range of motion and strength. Results Imaging Abdomen CT scan report/results: image reviewed CT scan - pelvis: image reviewed Labs 03/30/23 14:00 03/30/23 14:00 Labs: Laboratory Results - last 24 hr 03/30/23 03/30/23 03/30/23 12:34 14:00 14:00 WBC 3.28 L RBC 2.52 L Hgb 8.1 L Hct 24.8 L MCV 98 H MCH 32.1 MCHC 32.7 RDW 22.5 H Plt Count 6 L* MPV Immature Gran % 0.0 Neutrophils % 19.0 Band Neutrophils % 3 Lymphocytes % 68.0 Atypical Lymphs % 2 Monocytes % 1.0 Eosinophils % 0.0 Basophils % 2.0 Metamyelocytes % 1 Myelocytes % 1 Other Cells % 3 Nucleated RBC % 4.0 H Absolute Neutrophils 0.72 L Absolute Lymphocytes 2.30 Absolute Monocytes 0.03 L Absolute Eosinophils 0.00 Absolute Basophils 0.07 RBC Morphology See Below Anisocytosis 2+ PT INR APTT VBG Lactate Sodium 139 Potassium 4.2 Chloride 102 Carbon Dioxide 18.3 L Anion Gap 18.7 H BUN 13 Creatinine 1.0 Est GFR (CKD-EPI 2020) 64.49 Glucose 103 Calcium 9.2 Magnesium 1.9 Total Bilirubin 2.3 H AST 97 H ALT 36 Alkaline Phosphatase 557 H Total Protein 7.3 Albumin 3.2 L Lipase 74 Procalcitonin Urine Color Urine Clarity Urine pH Ur Specific [place] Urine Protein Urine Ketones Urine Blood Urine Nitrite Urine Bilirubin Urine Urobilinogen Ur Leukocyte Esterase Urine RBC Urine WBC Ur Epithelial Cells Urine Crystals Urine Bacteria Urine Casts Urine Mucus Urine Other Ur Culture Indicated? Urine Glucose Patient ABO/Rh O Positive Antibody Screen 03/30/23 03/30/23 03/30/23 14:00 14:00 14:34 WBC RBC Hgb Hct MCV MCH MCHC RDW Plt Count MPV Immature Gran % Neutrophils % Band Neutrophils % Lymphocytes % Atypical Lymphs % Monocytes % Eosinophils % Basophils % Metamyelocytes % Myelocytes % Other Cells % Nucleated RBC % Absolute Neutrophils Absolute Lymphocytes Absolute Monocytes Absolute Eosinophils Absolute Basophils RBC Morphology Anisocytosis PT 11.3 H INR 1.1 APTT 27.9 VBG Lactate Sodium Potassium Chloride Carbon Dioxide Anion Gap BUN Creatinine Est GFR (CKD-EPI 2020) Glucose Calcium Magnesium Total Bilirubin AST ALT Alkaline Phosphatase Total Protein Albumin Lipase Procalcitonin Urine Color Yellow Urine Clarity Clear Urine pH 5.5 Ur Specific [place] >= 1.030 H Urine Protein Trace H Urine Ketones 40 H Urine Blood Trace-intact H Urine Nitrite Positive H Urine Bilirubin Moderate H Urine Urobilinogen 1.0 H Ur Leukocyte Esterase Negative Urine RBC 3-5 H Urine WBC 3-5 Ur Epithelial Cells Rare Urine Crystals Negative Urine Bacteria Many Urine Casts Negative Urine Mucus Trace Urine Other Negative Ur Culture Indicated? Yes Urine Glucose Negative Patient ABO/Rh O Positive Antibody Screen NEGATIVE 03/30/23 17:23 WBC RBC Hgb Hct MCV MCH MCHC RDW Plt Count MPV Immature Gran % Neutrophils % Band Neutrophils % Lymphocytes % Atypical Lymphs % Monocytes % Eosinophils % Basophils % Metamyelocytes % Myelocytes % Other Cells % Nucleated RBC % Absolute Neutrophils Absolute Lymphocytes Absolute Monocytes Absolute Eosinophils Absolute Basophils RBC Morphology Anisocytosis PT INR APTT VBG Lactate 7.7 H* Sodium Potassium Chloride Carbon Dioxide Anion Gap BUN Creatinine Est GFR (CKD-EPI 2020) Glucose Calcium Magnesium Total Bilirubin AST ALT Alkaline Phosphatase Total Protein Albumin Lipase Procalcitonin 0.4 Urine Color Urine Clarity Urine pH Ur Specific [place] Urine Protein Urine Ketones Urine Blood Urine Nitrite Urine Bilirubin Urine Urobilinogen Ur Leukocyte Esterase Urine RBC Urine WBC Ur Epithelial Cells Urine Crystals Urine Bacteria Urine Casts Urine Mucus Urine Other Ur Culture Indicated? Urine Glucose Patient ABO/Rh Antibody Screen Last Vital Signs Temp 36.5 C 03/30/23 13:50 Pulse 91 H 03/30/23 18:00 Resp 19 03/30/23 18:10 BP 126/76 03/30/23 18:00 Pulse Ox 98 03/30/23 18:10 Time Spent Time spent with Patient: >75 minutes Time was spent: preparing to see the patient(eg.review tests), obtaining and/or reviewing separately otained hiistory, ordering medications,tests, procedures, referring, communicating with other health residential caregiver, indepentently interpreting results, counseling the patient and care coordination
--- NOTE | 2023-03-30 19:00 | NUR.NOTE ---
Nursing Note: pt was received to this business writer from the ER, VS were taken and documented and report was given to next nurse
[2023-03-30 19:58] LABS: Folate 3.4 ng/mL (8.6-20.0); Vitamin B12 213 pg/mL (193-986)
[2023-03-30] MEDS: Folic Acid 1 MG TAB 5 MG PO (20:40)
[2023-03-30] MEDS: Acetaminophen 325 MG TAB PO (20:41)
[2023-03-30] MEDS: Sodium Bicarbonate 650 MG TAB PO (21:39)
[2023-03-30] MEDS: HYDROmorphone 2 MG TAB PO (21:46)
[2023-03-30 23:33] LABS: D-Dimer 986 ng/mlFEU (<500)
--- NOTE | 2023-03-30 23:43 | DI.VRAD_ITS ---
PROCEDURE INFORMATION: Exam: CT Head Without Contrast Exam date and time: 03/30/2023 11:20 PM Age: 62 years old Clinical indication: Pain; Headache not specified; Patient HX: Headache, thrombocytopenia TECHNIQUE: Imaging protocol: Computed tomography of the head without contrast. Radiation optimization: All CT scans at this facility use at least one of these dose optimization techniques: automated exposure control; mA and/or kV adjustment per patient size (includes targeted exams where dose is matched to clinical indication); or iterative reconstruction. COMPARISON: No relevant prior studies available. FINDINGS: Brain: Mild volume loss No hemorrhage. Unremarkable white matter. No mass effect. Cerebral ventricles: No ventriculomegaly. Paranasal sinuses: Visualized sinuses are unremarkable. No fluid levels. Mastoid air cells: Visualized mastoid air cells are well aerated. Bones/joints: Unremarkable. No acute fracture. Soft tissues: Unremarkable. IMPRESSION: No acute intracranial abnormality. Dictated and Authenticated by: Donato Amaya MD. Ordering:ADRIAN Berger MD
[2023-03-31] VITALS (14 sets, daily range): BP systolic 108–123; BP diastolic 70–80; PULSE 83–109; RESP 16–20; TEMP 35.2–37.1; O2SAT 95–99
--- NOTE | 2023-03-31 | DI.CT_ITS ---
Exam(s) CT CHEST W EXAM: CT CHEST W CLINICAL HISTORY: pancytopenia, hepatosplenomegaly, weight loss, TECHNIQUE: Imaging Protocol: Axial computed tomography images with coronal and sagittal reformatted images were created and reviewed CONTRAST MATERIAL: Intravenous: Omnipaque 350Contrast volume:70 mL. COMPARISON: CT CT THORAX ABD/PEL CTA from 02/11/2023 FINDINGS: Tracheobronchial tree: Patent where visualized. There is again seen a small diverticulum to the right of the trachea and esophagus at the thoracic inlet. Pulmonary parenchyma: No dominant measurable mass. No architectural distortion. Linear infiltrates a re seen in the left lingula and left lower lobe which may represent atelectasis or pneumonia. Mediastinum and Vera: No dominant adenopathy or fluid collection. The esophagus is unremarkable. Thyroid gland: There is an 8 mm hypodensity in the inferior pole of the right thyroid gland. No foll ow-up is recommended. Pleura: No effusion or pneumothorax. Heart: The heart is not dilated. No coronary artery calcifications are seen. No pericardial effusion. Aorta: The ascending thoracic aorta measures 4.1 x 4 cm. No dissection is appreciated. Pulmonary arteries: The pulmonary arteries are inadequately opacified for evaluation of peripheral pu lmonary emboli. No large central pulmonary embolus is seen. Lymph nodes: Within normal limits. Bones: Within normal limits for the patient's age. No aggressive osseous lesions are identified. Soft tissues: Unremarkable. IMPRESSION: 1. No evidence of a thoracic mass or metastatic disease. 2. 4.1 x 4 cm thoracic ascending aorta. RADIATION DOSE DELIVERED: 403.42mGy.cm Total DLP DATA REPOSITORY: All CT scans at this facility are submitted to the National Radiology Data Registry (NRDR) Dose Index Registry (DIR) with the [employer] (ACR). RADIATION OPTIMIZATION: All CT scans at this facility use at least one of these dose optimization te chniques: automated exposure control; mA and/or kV adjustment per patient size (includes targeted exa ms where dose is matched to clinical indication); or iterative reconstruction.
[2023-03-31 07:36] LABS: Lactate 9.7 mmol/L (0.6-1.4)
[2023-03-31 07:38] LABS: Abs Immature Grans 0.15 10^3/uL (0.0-0.06); HCT 21.9 % (36.0-46.0); HGB 7.3 g/dL (11.2-15.7); MCH 32.7 pg (27.0-33.0); MCHC 33.3 % (32.0-36.0); MCV 98 fL (80-95); MPV 12.5 fL (8.0-11.0); RBC 2.23 10^6/uL (3.93-5.22); RDW 22.6 % (11.7-14.6); RDW-SD 79.5 fL; WBC 3.34 10^3/uL (4.4-10.8)
[2023-03-31] MEDS: Folic Acid 1 MG TAB 5 MG PO (08:00)
--- NOTE | 2023-03-31 08:00 | DI.RAD_ITS ---
Exam(s) XR BONE SURVEY EXAM: XR BONE SURVEY CLINICAL HISTORY: pain, elevated alkaline phosphatase. TECHNIQUE: 2D digital imaging was performed. COMPARISON: No exams were available for comparison FINDINGS: No evidence of fracture. No bony abnormality identified. Soft tissues are unremarkable. HEAD AND NECK: Normal. CHEST AND RIBS: Normal. PELVIS: Normal. LONG BONES: Normal. SPINE:Normal. IMPRESSION: No lytic or sclerotic lesions are seen. DATA REPOSITORY: RADIATION DOSE DELIVERED:
[2023-03-31 08:01] LABS: Reticulocyte 3.2 % (0.5-2.4)
[2023-03-31] MEDS: Pantoprazole 40 MG TABCR PO (08:01)
[2023-03-31] MEDS: Sodium Bicarbonate 650 MG TAB PO ×4 (08:02→20:43)
[2023-03-31 08:03] LABS: INR 1.1 (0.9-1.1); Prothrombin Time 10.8 sec (9.3-11.0)
[2023-03-31 08:12] LABS: ALT 32 U/L (14-59); AST 83 U/L (15-37); Alkaline Phosphatase 471 U/L (46-116); Anion Gap 18.7 mmol/L (3-11); BUN 13 mg/dL (7-18); Bilirubin, Total 1.8 mg/dL (0.2-1.0); CO2 16.3 mmol/L (21.0-32.0); CREATININE 0.9 mg/dL (0.55-1.02); Calcium 8.9 mg/dL (8.5-10.1); Chloride 105 mmol/L (98-107); Estimated GFR 73.19 (mL/min/1.73m2); Glucose 146 mg/dL (74-106); Magnesium 1.9 mg/dL (1.8-2.4); Potassium 4.5 mmol/L (3.5-5.1); Sodium 140 mmol/L (136-145)
[2023-03-31 08:23] LABS: LDH 1614 U/L (81-234); TSH (W/Ref FT4) 0.91 uIU/mL (0.36-3.74)
[2023-03-31 08:27] LABS: Platelet Count 26 10^3/uL (130-400)
[2023-03-31 08:28] LABS: Absolute Lymphocyte Count 1.74 10^3/uL (1.2-3.4); Absolute Neutrophil Count 1.24 10^3/uL (1.2-6.7); Atypical Lymphocytes % 2; Bands % 2
[2023-03-31 08:29] LABS: Myelocytes % 1; Other Cells % 10
[2023-03-31 08:30] LABS: Anisocytosis 2+; Diff Comment Manual Differential; Polychromasia Present
--- NOTE | 2023-03-31 08:43 | PDOC.CMIN ---
Date of service: 03/31/23 Time of Service: 08:43 Care Management Initial Assmt Initial Assessment REASON FOR HOSPITALIZATION:: Pancytopenia PREVIOUS FUNCTIONAL STATUS/SOCIAL/FAMILY SUPPORTS:: Viraj lives in a single family home in [place], [place] with her and 4 children. She is not currently employed. Viraj is independent at baseline and does not receive any community services. CURRENT FUNCTIONAL STATUS:: Viraj was sitting up in bed when CM met with her. Her and daughter were present. Her daughter answered all questions asked by CM; it did not appear that Viraj was conversant in Greenlandic. Viraj has been accepted in transfer to [facility] by Dr. Prado, but no beds were available today. ADVANCE DIRECTIVES:: none on file Has patient been provided with info about the portal/API?: Yes Did the patient sign up for the portal?: No CODE STATUS:: Full Code INSURANCE COVERAGE / FINANCIAL ISSUES:: [place] CURRENT HOME/COMMUNITY SERVICES/EQUIPMENT:: none PRIMARY CARE PHYSICIAN:: Kannan Haro POTENTIAL DISCHARGE NEEDS:: follow up with PCP and Heme/Onc at [facility] PATIENT/FAMILY EDUCATION NEEDS:: Review of discharge instructions, limitations, diet, follow up plan, discuss Ask Me Three TRANSPORTATION:: via private vehicle with family PLAN:: Viraj has been accepted in transfer to [facility] and is waiting for a bed. She will be on Dr. Prado's service. Viraj will transport via EMS coordinated by the nursing frame sample and pattern supervisor. CM will follow and support discharge planning needs. PFSH All Active Problems (Updated 03/30/23 @ 21:09 by Tra Pagan MD) Elevated transaminase level (Acute) UTI (urinary tract infection) (Acute) Folic acid deficiency (Acute) Alkaline phosphatase elevation (Acute) Hyperbilirubinemia (Acute) Abnormal weight loss (Acute) Pancytopenia (Acute) Thrombocytopenia (Chronic) Anemia (Chronic) Leukopenia (Acute) Hepatitis (Acute) Acute hepatitis (Acute) Helicobacter positive gastritis (Acute) AAA (abdominal aortic aneurysm) (Chronic) 02/11/2023 CT scan at ER: 3.65 CM --> annual US for now; discuss ASA and statin w/ pt Note that this is an incorrect diagnosis. No AAA was noted on either CT scan form either 02/11/23 nor from 03/30/23. She has dilated ascending thoracic aorta of 3.65 cm (addendum added per Dr. Pagan) Please make correction in patient's office note Social History Smoking/Tobacco Use Status: Never Second Hand Exposure: No Smoking risk assessment performed?: Yes Alcohol Intake: former Drug use: Never Substance use type: does not use Adopted: No Caregiver/Support person: No Foster care: No Household members: family Housing: house Number of Children: 4 Communication Needs: Language Barriers Do you need help understanding health information?: Always Pets and animals: No Sexually active: No Do you think of yourself as: straight/heterosexual Current gender identity: female What is your relationship status?: How often do you talk on the phone with friends or family?: once per week How often do you get together with friends or relatives?: once per week Do you belong to any clubs or organized social groups?: no Panel score (0-1 are the most socially isolated patients): 1 Emilia/Hindu: Pentecostal Special emilia needs: No Seatbelt use: always Helmet use: Yes Helmet use: always Drive intox or ride w/intox milk wagon driver: No Do you feel safe at home: Yes Do you feel safe in your relationship?: Yes
--- NOTE | 2023-03-31 12:00 | DI.MRI_ITS ---
Exam(s) MR ABDOMEN WO EXAM: MR ABDOMEN WO CLINICAL HISTORY: hepatic failure TECHNIQUE: Multiplanar multisequence MRI of the Abdomen was performed. COMPARISON: CT CT ABDOMEN PELVIS W from 03/30/2023 FINDINGS: The examination is limited due to patient motion artifact. Liver: There are 2 well-circumscribed 2-3 mm lesions present. One in the left lobe and 1 in the righ t lobe. There are hyperintense on T2 weighted images. No other hepatic masses are seen. The liver measures 23 cm long. Pancreas: Unremarkable. Gallbladder and Bile Ducts: Unremarkable. No biliary ductal dilatation. Adrenals: Unremarkable. Kidneys: There is a subcentimeter cyst in the right kidney. No solid renal masses are present. Spleen: Unremarkable. Bowel: There is a diverticulum associated with the duodenum adjacent to the head of the pancreas. Aorta: Unremarkable. Soft Tissues: Unremarkable. Bone: Unremarkable. Lymph Nodes: Unremarkable. IMPRESSION: 1. Unremarkable gallbladder. No biliary ductal dilatation. 2. Two tiny well-circumscribed 2-3 mm hepatic lesions. They are homogeneously hyperintense on T2 ezra ghted images suggesting cysts. They are too small for further characterization. 3. No suspicious hepatic masses. 4. Hepatomegaly. DATA REPOSITORY:
[2023-03-31] MEDS: Gadoterate meglumine 20 ML VIAL 13 ML IVP (12:05)
[2023-03-31] MEDS: Normal Saline Flush 10 ML SYR IVP ×2 (12:05→12:34)
[2023-03-31] MEDS: Normal Saline - Diluent 50 ML VIAL IJ (12:33)
[2023-03-31] MEDS: Omnipaque 350 MG/ML 100 ML BTL IJ (12:33)
--- NOTE | 2023-03-31 12:35 | DI.MRI_ITS ---
Exam(s) MR BRAIN WO/W EXAM: MR BRAIN WO/W CLINICAL HISTORY: headaches, pancytopenia, evaluate for malignancy TECHNIQUE: Multiplanar multisequence MRI of the brain was performed. CONTRAST MATERIAL: IV Contrast: 13 mL of Dotarem contrast administered. COMPARISON: CT CT HEAD WO from 03/30/2023 FINDINGS: VENTRICLES AND EXTRA AXIAL SPACES: Normal in size and morphology for the patient's age. HEMORRHAGE: None. CEREBRAL PARENCHYMA: No focus of restricted diffusion to suggest acute infarct. No space-occupying le zaid identified. MIDLINE SHIFT: None. BRAINSTEM/CEREBELLUM: Normal. CALVARIUM: Normal. ENHANCEMENT: No suspicious enhancement identified. VISUALIZED PARANASAL SINUSES/MASTOIDS: Clear. LUMMI OF AGUILAR: Normal flow void. PITUITARY GLAND: Unremarkable. OTHER FINDINGS: IMPRESSION: 1. No evidence of an acute infarct, intracranial mass or enhancing lesion. 2. No acute intracranial process. DATA REPOSITORY:
[2023-03-31] MEDS: Prochlorperazine 10 MG/2 ML VIAL 5 MG IVP (13:22)
--- NOTE | 2023-03-31 13:38 | PGE_ITS ---
Date of Service Date of service: 03/31/23 Time of Service: 13:38 Assessment and Plan Assessment and plan (1) Pancytopenia: Status: Acute Assessment and plan: likely that she has a leukemic process given the blasts (now 10%) on her peripheral smear. Hb is holding at 7.3 gm and WBC 3340, platelets now up to 26,000. Her ANC yesterday was 700 and today is 1240. I will continue to monitor her counts and transfuse prn. Keep Hb >7 gm, platelets >20,000. Transfer to [facility] when bed is available. Patient needs urgent bone marrow biopsy so diagnosis can be confirmed and she can begin treatment. I went over her MRI of her brain, abdomen and her chest CT with the family and patient (through her daughter who interpreted. MRI brain w/ and w/out contrast: no infarct or mass. Abdominal MRI hepatomegaly but no suspicious masses. Two tiny well circumscribed 2 to 3 mm lesions that are homogenously hyperintense on T2 weighted images suggests cysts. Bone survey has been done but not read yet. By my review, I do not see any blastic or lytic lesions. (2) Abnormal weight loss: Status: Acute Assessment and plan: 20 lb wt loss over 3month period (3) Alkaline phosphatase elevation: Status: Acute (4) Hyperbilirubinemia: Status: Acute (5) Elevated transaminase level: Status: Acute (6) Folic acid deficiency: Status: Acute Assessment and plan: patient has ongoing loss of folate. I have put her on replacement at 5 mg daily, I sent off homocysteine and MMA acid levels. (7) UTI (urinary tract infection): Status: Acute Assessment and plan: patient was treated in the ED w/ fosfomycin. Subjective Subjective Interval history since last seen: Patient had nose bleed this morning which has since stopped. Her platelets are up to 26,000 today. ANC is now 1240. I told the patient and her family that I heard from [facility] this morning and she has been accepted for transfer to [facility] heme/onc service of Dr. Prado pending bed availability but that beds would not likely be available today but tomorrow. I also told them that as long as her platelets are over 20,000, I will not transfuse. Exam Narrative Exam Narrative: Viraj is alert, she is sitting up in bed, in discomfort but not acute distress Nares w/ moist fresh clots of blood Abdomen: distended, soft but w/ marked hepatomegaly and splenomegaly Objective Last Vital Signs Temp 35.2 C L 03/31/23 13:29 Pulse 103 H 03/31/23 13:29 Resp 20 03/31/23 13:29 BP 115/74 03/31/23 13:29 Pulse Ox 98 03/31/23 13:29 Laboratory Results - last 24 hr 03/30/23 03/30/23 03/30/23 12:34 12:34 14:00 WBC RBC Hgb Hct MCV MCH MCHC RDW Plt Count MPV Reticulocyte % (Auto) Immature Gran % Neutrophils % Band Neutrophils % Lymphocytes % Atypical Lymphs % Monocytes % Eosinophils % Basophils % Metamyelocytes % Myelocytes % Other Cells % Nucleated RBC % Absolute Neutrophils Absolute Lymphocytes Absolute Monocytes Absolute Eosinophils Absolute Basophils RBC Morphology Polychromasia Anisocytosis PT INR APTT D-Dimer VBG Lactate Sodium 139 Potassium 4.2 Chloride 102 Carbon Dioxide 18.3 L Anion Gap 18.7 H BUN 13 Creatinine 1.0 Est GFR (CKD-EPI 2020) 64.49 Glucose 103 Calcium 9.2 Magnesium 1.9 Total Bilirubin 2.3 H AST 97 H ALT 36 Alkaline Phosphatase 557 H Lactate Dehydrogenase Total Protein 7.3 Albumin 3.2 L Lipase 74 Vitamin B12 213 Folate 3.4 L Procalcitonin TSH Urine Color Urine Clarity Urine pH Ur Specific [place] Urine Protein Urine Ketones Urine Blood Urine Nitrite Urine Bilirubin Urine Urobilinogen Ur Leukocyte Esterase Urine RBC Urine WBC Ur Epithelial Cells Urine Crystals Urine Bacteria Urine Casts Urine Mucus Urine Other Ur Culture Indicated? Urine Glucose MAIKEL Scrn Quantitative Anti-Mitochondrial Ab Anti-Smooth Muscle Ab Hepatitis C Antibody Patient ABO/Rh O Positive Antibody Screen 03/30/23 03/30/23 03/30/23 14:00 14:00 14:00 WBC 3.28 L RBC 2.52 L Hgb 8.1 L Hct 24.8 L MCV 98 H MCH 32.1 MCHC 32.7 RDW 22.5 H Plt Count 6 L* MPV Reticulocyte % (Auto) Immature Gran % 0.0 Neutrophils % 19.0 Band Neutrophils % 3 Lymphocytes % 68.0 Atypical Lymphs % 2 Monocytes % 1.0 Eosinophils % 0.0 Basophils % 2.0 Metamyelocytes % 1 Myelocytes % 1 Other Cells % 3 Nucleated RBC % 4.0 H Absolute Neutrophils 0.72 L Absolute Lymphocytes 2.30 Absolute Monocytes 0.03 L Absolute Eosinophils 0.00 Absolute Basophils 0.07 RBC Morphology See Below Polychromasia Anisocytosis 2+ PT 11.3 H INR 1.1 APTT 27.9 D-Dimer VBG Lactate Sodium Potassium Chloride Carbon Dioxide Anion Gap BUN Creatinine Est GFR (CKD-EPI 2020) Glucose Calcium Magnesium Total Bilirubin AST ALT Alkaline Phosphatase Lactate Dehydrogenase Total Protein Albumin Lipase Vitamin B12 Folate Procalcitonin TSH Urine Color Urine Clarity Urine pH Ur Specific [place] Urine Protein Urine Ketones Urine Blood Urine Nitrite Urine Bilirubin Urine Urobilinogen Ur Leukocyte Esterase Urine RBC Urine WBC Ur Epithelial Cells Urine Crystals Urine Bacteria Urine Casts Urine Mucus Urine Other Ur Culture Indicated? Urine Glucose MAIKEL Scrn Quantitative Anti-Mitochondrial Ab Anti-Smooth Muscle Ab Hepatitis C Antibody Patient ABO/Rh O Positive Antibody Screen NEGATIVE 03/30/23 03/30/23 03/30/23 14:34 17:23 18:12 WBC RBC Hgb Hct MCV MCH MCHC RDW Plt Count MPV Reticulocyte % (Auto) Immature Gran % Neutrophils % Band Neutrophils % Lymphocytes % Atypical Lymphs % Monocytes % Eosinophils % Basophils % Metamyelocytes % Myelocytes % Other Cells % Nucleated RBC % Absolute Neutrophils Absolute Lymphocytes Absolute Monocytes Absolute Eosinophils Absolute Basophils RBC Morphology Polychromasia Anisocytosis PT INR APTT D-Dimer VBG Lactate 7.7 H* Sodium Potassium Chloride Carbon Dioxide Anion Gap BUN Creatinine Est GFR (CKD-EPI 2020) Glucose Calcium Magnesium Total Bilirubin AST ALT Alkaline Phosphatase Lactate Dehydrogenase Total Protein Albumin Lipase Vitamin B12 Folate Procalcitonin 0.4 TSH Urine Color Yellow Urine Clarity Clear Urine pH 5.5 Ur Specific [place] >= 1.030 H Urine Protein Trace H Urine Ketones 40 H Urine Blood Trace-intact H Urine Nitrite Positive H Urine Bilirubin Moderate H Urine Urobilinogen 1.0 H Ur Leukocyte Esterase Negative Urine RBC 3-5 H Urine WBC 3-5 Ur Epithelial Cells Rare Urine Crystals Negative Urine Bacteria Many Urine Casts Negative Urine Mucus Trace Urine Other Negative Ur Culture Indicated? Yes Urine Glucose Negative MAIKEL Scrn Quantitative Cancelled Anti-Mitochondrial Ab Cancelled Anti-Smooth Muscle Ab Cancelled Hepatitis C Antibody Cancelled Patient ABO/Rh Antibody Screen 03/30/23 03/31/23 03/31/23 22:51 07:10 07:10 WBC RBC Hgb Hct MCV MCH MCHC RDW Plt Count MPV Reticulocyte % (Auto) 3.2 H Immature Gran % Neutrophils % Band Neutrophils % Lymphocytes % Atypical Lymphs % Monocytes % Eosinophils % Basophils % Metamyelocytes % Myelocytes % Other Cells % Nucleated RBC % Absolute Neutrophils Absolute Lymphocytes Absolute Monocytes Absolute Eosinophils Absolute Basophils RBC Morphology Polychromasia Anisocytosis PT INR APTT D-Dimer 986 H VBG Lactate Sodium Potassium Chloride Carbon Dioxide Anion Gap BUN Creatinine Est GFR (CKD-EPI 2020) Glucose Calcium Magnesium Total Bilirubin AST ALT Alkaline Phosphatase Lactate Dehydrogenase 1614 H Total Protein Albumin Lipase Vitamin B12 Folate Procalcitonin TSH 0.91 Urine Color Urine Clarity Urine pH Ur Specific [place] Urine Protein Urine Ketones Urine Blood Urine Nitrite Urine Bilirubin Urine Urobilinogen Ur Leukocyte Esterase Urine RBC Urine WBC Ur Epithelial Cells Urine Crystals Urine Bacteria Urine Casts Urine Mucus Urine Other Ur Culture Indicated? Urine Glucose MAIKEL Scrn Quantitative Anti-Mitochondrial Ab Anti-Smooth Muscle Ab Hepatitis C Antibody Patient ABO/Rh Antibody Screen 03/31/23 03/31/23 03/31/23 07:10 07:10 07:10 WBC 3.34 L RBC 2.23 L Hgb 7.3 L Hct 21.9 L MCV 98 H MCH 32.7 MCHC 33.3 RDW 22.6 H Plt Count 26 L* D MPV 12.5 H Reticulocyte % (Auto) Immature Gran % 0.0 Neutrophils % 35.0 Band Neutrophils % 2 Lymphocytes % 50.0 Atypical Lymphs % 2 Monocytes % 0.0 Eosinophils % 0.0 Basophils % 0.0 Metamyelocytes % Myelocytes % 1 Other Cells % 10 Nucleated RBC % 6.0 H Absolute Neutrophils 1.24 Absolute Lymphocytes 1.74 Absolute Monocytes 0.00 L Absolute Eosinophils 0.00 Absolute Basophils 0.00 RBC Morphology See Below Polychromasia Present Anisocytosis 2+ PT 10.8 INR 1.1 APTT D-Dimer VBG Lactate Sodium 140 Potassium 4.5 Chloride 105 Carbon Dioxide 16.3 L Anion Gap 18.7 H BUN 13 Creatinine 0.9 Est GFR (CKD-EPI 2020) 73.19 Glucose 146 H Calcium 8.9 Magnesium 1.9 Total Bilirubin 1.8 H AST 83 H ALT 32 Alkaline Phosphatase 471 H Lactate Dehydrogenase Total Protein 7.0 Albumin 3.0 L Lipase Vitamin B12 Folate Procalcitonin TSH Urine Color Urine Clarity Urine pH Ur Specific [place] Urine Protein Urine Ketones Urine Blood Urine Nitrite Urine Bilirubin Urine Urobilinogen Ur Leukocyte Esterase Urine RBC Urine WBC Ur Epithelial Cells Urine Crystals Urine Bacteria Urine Casts Urine Mucus Urine Other Ur Culture Indicated? Urine Glucose MAIKEL Scrn Quantitative Anti-Mitochondrial Ab Anti-Smooth Muscle Ab Hepatitis C Antibody Patient ABO/Rh Antibody Screen 03/31/23 07:10 WBC RBC Hgb Hct MCV MCH MCHC RDW Plt Count MPV Reticulocyte % (Auto) Immature Gran % Neutrophils % Band Neutrophils % Lymphocytes % Atypical Lymphs % Monocytes % Eosinophils % Basophils % Metamyelocytes % Myelocytes % Other Cells % Nucleated RBC % Absolute Neutrophils Absolute Lymphocytes Absolute Monocytes Absolute Eosinophils Absolute Basophils RBC Morphology Polychromasia Anisocytosis PT INR APTT D-Dimer VBG Lactate 9.7 H* Sodium Potassium Chloride Carbon Dioxide Anion Gap BUN Creatinine Est GFR (CKD-EPI 2020) Glucose Calcium Magnesium Total Bilirubin AST ALT Alkaline Phosphatase Lactate Dehydrogenase Total Protein Albumin Lipase Vitamin B12 Folate Procalcitonin TSH Urine Color Urine Clarity Urine pH Ur Specific [place] Urine Protein Urine Ketones Urine Blood Urine Nitrite Urine Bilirubin Urine Urobilinogen Ur Leukocyte Esterase Urine RBC Urine WBC Ur Epithelial Cells Urine Crystals Urine Bacteria Urine Casts Urine Mucus Urine Other Ur Culture Indicated? Urine Glucose MAIKEL Scrn Quantitative Anti-Mitochondrial Ab Anti-Smooth Muscle Ab Hepatitis C Antibody Patient ABO/Rh Antibody Screen Time Spent with Patient Time Spent with Patient: 35-49 minutes Time was spent: preparing to see the patient(eg.review tests), ordering medications,tests, procedures, referring, communicating with other health director of health care marketing, indepentently interpreting results, counseling the patient and care coordination
--- NOTE | 2023-03-31 15:50 | PHA.REVIEW2 ---
Pharmacy Admission Review Admission Clinical Review Admission Pharmacy Review: (Updated 03/30/23 @ 21:09 by Tra Pagan MD) Elevated transaminase level (Acute) UTI (urinary tract infection) (Acute) Folic acid deficiency (Acute) Alkaline phosphatase elevation (Acute) Hyperbilirubinemia (Acute) Abnormal weight loss (Acute) Pancytopenia (Acute) Leukopenia (Acute) Hepatitis (Acute) No Known Allergies Allergy (Unverified 03/30/23 13:56) Resuscitation Status Full Code Height 5 ft 4 in Weight 65 kg Comments Comments/Follow Ups: Watch VS, SCr, plts, H/H, labs, for culture results and for med changes (possible renal dose adjustments). Pharmacy Admission Review Renal Dosing Renal Dosing: BUN 13 mg/dL (7-18) 03/31/23 07:10 Creatinine 0.9 mg/dL (0.55-1.02) 03/31/23 07:10 Medications needing adjustments: Reviewed (Crcl ~61.2 mL/min current meds okay) Anticoagulation Anticoagulation: Hgb 7.3 g/dL (11.2-15.7) L 03/31/23 07:10 Hct 21.9 % (36.0-46.0) L 03/31/23 07:10 Plt Count 26 10^3/uL (130-400) L* D 03/31/23 07:10 INR 1.1 (0.9-1.1) 03/31/23 07:10 Creatinine 0.9 mg/dL (0.55-1.02) 03/31/23 07:10 DVT Prophylaxis: Reviewed (SCDs ordrered. No chemical prophylaxis due to pancytopenia.) Therapeutic Anticoagulation: N/A Opiate Usage Evaluate Pain Scale/Pains Meds: Reviewed Scheduled Bowel Reg ordered if on Opiates?: No (has PRN meds ordered) Relevant Labs Relevant Labs: Sodium 140 mmol/L (136-145) 03/31/23 07:10 Potassium 4.5 mmol/L (3.5-5.1) 03/31/23 07:10 Chloride 105 mmol/L (98-107) 03/31/23 07:10 Magnesium 1.9 mg/dL (1.8-2.4) 03/31/23 07:10 Electrolytes, C-Reactive P, ESR: Reviewed DM Control DM Control: Glucose 146 mg/dL (74-106) H 03/31/23 07:10 DM Control: Reviewed (No DM noted in pt's medical history, no A1c on file) Cardiac Review BP, HR, EF%: Reviewed (BP has been within normal limits most of admission so far and HR has been normal to high.) QTc Review QTc: N/A IV to PO Switch IV Medications: Reviewed Home Meds Home Med List reviewed: Reviewed Relevent Home Meds Not ordered & why?: omeprazole- unconfirmed, has pantoprazole ordered Current Meds Current Medication Order Review: Intervened (Discontinued duplicate med orders) Pharmacy Antibiotic Review Relevant Labs: Relevant Labs 03/31/23 03/30/23 07:10 17:23 Lactate Dehydrogenase 1614 H Procalcitonin 0.4 Pharmacy Antibiotic Activity: C/S review and Reviewed, no change Comments: Urine culture growing staph, not aureus. Fosfomycin dose given yesterday for UTI per progress note. Comments Comments/Follow Ups: Watch VS, SCr, plts, H/H, labs, for culture results and for med changes (possible renal dose adjustments).
--- NOTE | 2023-03-31 17:24 | IN_ITS ---
Date of service: 03/31/23 Time of Service: 17:00 PT Notes Visit Reasons: Pancytopenia,Transaminitis Physical Therapy Inpatient Initial Evaluation Date: 03/31/2023 Referring Doctor: Tra Mcmanus MD PT Orders: PT CONSULT: Extended stay weakness Precautions: Fall. Standard. Activity as tolerated. Patient Profile/Admitting Diagnosis: Viraj is a 62-year-old female admitted to the ED on 03/30/2023 and subsequently transferred to [facility] for management of pancytopenia, abnormal weight loss, alkaline phosphatase elevation, hyperbilirubinemia, elevated transaminases, folic acid deficiency, and urinary tract infection. PMHX: All Active Problems?(Updated 03/30/23 @ 21:09 by Tra Pagan MD) Elevated transaminase level (Acute) UTI (urinary tract infection) (Acute) Folic acid deficiency (Acute) Alkaline phosphatase elevation (Acute) Hyperbilirubinemia (Acute) Abnormal weight loss (Acute) Pancytopenia (Acute) Thrombocytopenia (Chronic) Anemia (Chronic) Leukopenia (Acute) Hepatitis (Acute) Acute hepatitis (Acute) Helicobacter positive gastritis (Acute) AAA (abdominal aortic aneurysm) (Chronic) 02/11/2023 CT scan at ER: 3.65 CM --> annual US for now; discuss ASA and statin w/ pt. Note that this is an incorrect diagnosis. No AAA was noted on either CT scan form either 02/11/23 nor from 03/30/23. She has dilated ascending thoracic aorta of 3.65 cm (addendum added per Dr. Pagan) Please make correction in patient's office note Social History/Home Situation: Patient lives with and 3 kids in a private home. Patient is independent with all aspects of ADLs prior to 2-1/2 months ago when she started gradually weakening. She does not work. works for [employer]. Equipment Owned/DME: None Subjective: Patient unable to speak in Uz[place]. Daughter Anthony translated for this provider and her mother. Patient reports fatigue but is agreeable to assessment. Objective: General Observation: Resting in bed. Just got done supper. Daughter Anthony and Viraj (named the same as patient) present in room. Mental Status: Alert and oriented as to person, place, time, and purpose. Able to pay attention, focus, and respond appropriately. Pain: Denies Vital Signs: Closely monitored by nursing staff ROM: Right Upper Extremity: Shoulder Flexion WFL. Shoulder abduction WFL. Elbow flexion WFL. Wrist flexion WFL. Functional opening and closing of hand WFL. Left Upper Extremity: Shoulder Flexion WFL. Shoulder abduction WFL. Elbow flexion WFL. Wrist flexion WFL. Functional opening and closing of hand WFL. Right Lower Extremity: Hip flexion WFL. Hip abduction WFL. Knee flexion WFL. Ankle dorsiflexion WFL. Ankle plantarflexion WFL. Left Lower Extremity: Hip flexion WFL. Hip abduction WFL. Knee flexion WFL. Ankle dorsiflexion WFL. Ankle plantarflexion WFL. Strength: Right Upper Extremity: Shoulder flexors 4/5. Shoulder abductors 4/5. Elbow flexors 4/5. Elbow extensors 4/5. Senior Facilities Manager strong. Left Upper Extremity: Shoulder flexors 4/5. Shoulder abductors 4/5. Elbow flexors 4/5. Elbow extensors 4/5. Senior Facilities Manager strong. Right Lower Extremity: Hip flexors 4-/5. Hip abductors 4-/5. Knee flexors 4-/5. Knee extensors 4-/5. Ankle dorsiflexors 4-/5. Ankle plantarflexors 4-/5. Left Lower Extremity: Hip flexors 4-/5. Hip abductors 4-/5. Knee flexors 4-/5. Knee extensors 4-/5. Ankle dorsiflexors 4-/5. Ankle plantarflexors 4-/5. Bed Mobility/Transfers: Rolling independent Supine to sit independent Sit to supine independent Sit to stand contact guard assist Stand to sit contact guard assist Bed to reclining chair contact guard assist Reclining chair to bed contact guard assist Gait: 20 steps without assistive device but reported feeling very week after activity wanting to lie back down. Balance: Static Sitting: Normal Dynamic Sitting: Normal Static Standing: Fair Dynamic Standing: Fair Special Tests: Mobility Limitations Standardized Measure [facility] AM-PAC 6 clicks Basic Mobility Inpatient Short Form: Raw Score: 20 CMS Score: 3% deficit Informed Consent/Education: Patient, , and daughter were advised about purpose of PT consult and plan of care. Agreeable to proceed with established PT POC to achieve personal goals. Assessment: Patient demonstrates functional mobility decline due to admitting diagnoses. Patient presents with clinical signs and symptoms consistent with current/admitting diagnoses that have resulted to mobility limitations, gait instability, generalized weakness, and overall ADL decline as demonstrated by the following impairment level findings: 1. Decreased strength to B UE/LE major muscle groups 2. Impaired sitting/standing balance 3. Severely impaired activity tolerance Impairments are contributing to the following functional limitations: 1. Decline in transfer skills 2. Difficulty with ambulation 3. Increased completion time for mobility ADL performance 4. Increased risk for falls 5. Difficulty with managing steps alone safely Patient is assessed as a 96709 moderate complexity based on the following: History: 62-year-old female with past medical history as indicated above Examination: Demonstrable impairment in strength, balance, and mobility level with underlying impairments and functional limitations as exhibited above as well as deficit score of 36% utilizing the [facility] Mobility Inpatient Short Form Presentation: Evolving Decision Makin moderate complexity Goals: Goals X1 week 1. Supine-Sit independent 2. Sit-Supine independent 3. Sit-Stand independent 4. Stand-Sit independent with no device 5. Bed-Chair independent with no device 6. Chair-Bed independent with no device 7. Independent gait on level surface with use of FWW for at least 300 feet without report of pain nor dyspnea 8. Independent stair negotiation while holding onto B rails for at least 3 steps without report of pain nor dyspnea 9. Independent with home exercise program 10. Good static and dynamic standing balance/tolerance Plan of Care/Treatment Plan: 1-2x/day, 7 days/week x 1 week. Plan of care has been reviewed with the [employer] providing the service under Physical Therapy direction. Initiate Physical Therapy intervention for pain management as needed, strengthening, bed mobility, transfers, gait, stairs, balance training, and use of assistive device. DISCHARGE RECOMMENDATIONS: [] Home with no services [] [X] Home with services. Patient will benefit from home health PT services in order to progress mobility level using least restrictive assistive ambulatory device, assess home safety, identify additional equipment needs, and establish a functional maintenance program that will increase ability of patient to remain at home. [] Home with outpatient PT [] [] SNF for continued rehabilitation [] [] [facility] [] [] SNF versus LTC based on ability to participate and progress [] TREATMENT CODE/TIME: 65247 x 20 minutes (1 unit) beginning at 17:00 PM. Thank you for the opportunity to participate in the care of this patient. Sally Cope PT, DPT, CLT [facility] [place], [place]
[2023-03-31 19:05] LABS: Fibrinogen 395 mg/dL (171-384)
--- NOTE | 2023-03-31 20:04 | W.PM.DS.N ---
Date of service: 03/31/23 Time of Service: 20:09 DS: Diagnosis Discharge Diagnosis (1) Pancytopenia: Status: Acute (2) Abnormal weight loss: Status: Acute Asessment and Plan: 20 pound weight loss over 2 and half months (3) Alkaline phosphatase elevation: Status: Acute (4) Hyperbilirubinemia: Status: Acute (5) Elevated transaminase level: Status: Acute (6) Folic acid deficiency: Status: Acute (7) UTI (urinary tract infection): Status: Acute Asessment and Plan: Staph species not aureus treated with fosfomycin Discharge Plan Disposition Patient Disposition: Transfer-Acute Inpatient Care Specific Acute Inpt Facility: [facility] Condition: Stable Discharge Details Reason For Visit: Pancytopenia,Transaminitis Admit Date/Time: 03/30/23 17:16 Admit Provider: Tra Pagan Attending Provider: Tra Pagan Primary Care Provider: Kannan Haro [facility] Hospital Course: 62-year-old female Indonesian woman presented to the emergency department with complaints of increasing abdominal pain, abdominal swelling, night sweats and 20 pound weight loss over the last 2 and half months. Patient has been self treating for presumptive GERD with omeprazole but when she presented to the ED initially on 02/11/2023 was found to be moderately thrombocytopenic with a platelet count of 43,000 but no anemia. She was also found to have a transaminitis. Workup for tickborne disease was negative at that time she was set up with her primary care provider and subsequently underwent a workup for atypical chest pain with a negative stress test and workup for H. pylori which was positive for which she was treated with clarithromycin and metronidazole and omeprazole. Patient subsequently represented to the emergency department on 03/30/2023 at the advice of her primary care provider because follow-up lab work showed her to be pancytopenic and have elevated alkaline phosphatase and bilirubin. Patient had been experiencing recent epistaxis along with her abdominal pain and nightly night sweats and fevers. On presentation to the emergency department for this admission on 03/30/2023 her WBCs were 3200 with an ANC of 770 and platelets of 6000 and a macrocytic anemia with a hemoglobin of 8.3 g hematocrit 24% and MCV of 98 with an RDW of 22.6. Blood lactate was elevated at 7.7 her anion gap was elevated 18.7 with a bicarb of 18.3 and elevated direct bilirubin 1.4 and alkaline phosphatase of 559 with an AST of 97 and ALT of 34 and a low albumin 3.2. Imaging included CT scan of the abdomen pelvis which was reported officially as normal. However reviewed by the ED provider as well as myself our impression is that there is marked hepatomegaly and splenomegaly. Her clinical exam is consistent with hepatosplenomegaly. Patient was admitted to the hospital for transfusion of platelets. On the day of admission both [facility] and [facility] were called to see if she would be excepted in transfer as it was felt that the patient would likely need a bone marrow biopsy as it was suspected that she had an acute leukemic process. 10% blast cells were seen on her peripheral blood smear. She was transfused 1 unit of platelets which brought her platelet count up to 26,000 by the morning of 03/31/2023. At the time of her transfer her hemoglobin was 7.3 g and her white count was 3300 at this time her neutrophils were up to an ANC of 1240. Lactate remains elevated at 9.7 BUN/creatinine are normal at 13 and 0.9 her LDH is elevated at 1614 and SPEP is pending at this time TSH is normal at 0.91. Other labs are pending repeat tick panel was sent off and is pending at this time her hepatitis studies came back negative for hepatitis A, B and C. Lymphoma/leukemia panel was sent off and is pending at this time. B12 and folic acid levels were checked her B12 was low end of normal at 213 whereas it previously been 328 back in January. Folate it been checked in January and was found to be low at 7.9 and repeat testing this admission was even lower at 3.4. Patient was started on folic acid 5 mg daily. Initially both [facility] and [facility] declined to take the patient as they had no bed capacity but when I called [facility] back and spoke with the hematology fellow and it was discussed with her attending it was decided that the patient should be transferred to [facility] and was excepted to the care of Dr. Prado. On the morning of transfer the patient did have another epistaxis episode which was able to be readily controlled with compresses. Patient remained hemodynamically stable. Patient was treated for presumptive UTI with fosfomycin. Urine culture preliminary report shows staph species not aureus. Patient was transferred in stable condition to [facility]. Home Meds and New Rx's Prescriptions: No Action omeprazole 20 mg capsule,delayed release(DR/EC) 20 mg PO DAILY Qty: 60 0RF Rx Instructions: May continue taking prn after the antibiotic course is finished Discharge Instructions Instructions: Pancytopenia (DC) Activity:: Activity as Tolerated Equipment/Supplies:: No Equipment Needed Diet:: As Tolerated Discharge Orders Discharge Orders: Discharge Order (Routine); Ordered 03/31/23 Ordered By: Tra Pagan DS: Summary Time Spent with Patient providing and/or coordinating discharge services: Less than 30 minutes Specific discharge activities: Interview/exam of patient, educating patient and/or family about need for transfer and alternative treatment options, coordination of transfer w/ receiving facility and discussion of case w/ accepting provider(s), completion of transfer orders and discharge summary Status at Discharge Functional status at discharge: independent ambulation Overall status at discharge: patient is not back to baseline Mental Status: mental status grossly normal Speech and Movement: speech and movement normal Mood: congruent mood Affect: normal affect Exam Psych Mental Status: mental status grossly normal Speech and Movement: speech and movement normal Mood: congruent mood Affect: normal affect DS: Data Vitals/I&O Vitals and I&O: Vital Signs Temperature 36.5 C 03/31/23 19:45 Temperature Source Tympanic 03/31/23 19:45 Pulse 102 H 03/31/23 19:45 Pulse Rhythm Regular 03/31/23 19:51 Pulse 92 H 03/30/23 18:10 Respiratory Rate 18 03/31/23 19:45 Respiratory Effort Normal, Non-Labored 03/31/23 19:51 Respiratory Depth Normal 03/31/23 19:51 Respiratory Pattern Normal 03/31/23 19:51 Blood Pressure 111/70 03/31/23 19:45 Blood Pressure Mean 88 03/30/23 18:00 Blood Pressure Position Supine 03/30/23 13:50 Pulse Oximetry 98 03/31/23 19:45 Oxygen Delivery Method Room Air 03/31/23 19:45 Oxygen Flow Rate 0 03/31/23 19:45 Fraction of Inspired Oxygen (FIO2) 98 03/30/23 22:54 Pain Level 6 03/31/23 15:16 Comment 2nd set of vs , 15n min transfusion 03/30/23 22:54 Intake & Output 03/30/23 03/31/23 03/31/23 23:59 11:59 23:59 Intake Total 573 / 573 Output Total 100 / 100 Balance 473 / 473 Weight 67 kg 65 kg Intake: Blood Product 573 / 573 Apheresis Platelets Unit 250 / 250 [id number] Apheresis Platelets Unit 323 / 323 [id number] Output: Urine 100 / 100 Other: Urine Color Yellow Urine Appearance Clear Clear Voiding Methods Toilet Data Completed and Pending Labs on day of discharge: Labs from last 24 hours 03/31/23 03/31/23 03/31/23 08:43 07:10 07:10 WBC RBC Hgb Hct MCV MCH MCHC RDW Plt Count MPV Reticulocyte % (Auto) Immature Gran % Neutrophils % Band Neutrophils % Lymphocytes % Atypical Lymphs % Monocytes % Eosinophils % Basophils % Myelocytes % Other Cells % Nucleated RBC % Absolute Neutrophils Absolute Lymphocytes Absolute Monocytes Absolute Eosinophils Absolute Basophils RBC Morphology Polychromasia Anisocytosis Haptoglobin PT INR Fibrinogen D-Dimer VBG Lactate 9.7 H* Sodium Potassium Chloride Carbon Dioxide Anion Gap BUN Creatinine Est GFR (CKD-EPI 2020) Glucose Calcium Magnesium Total Bilirubin AST ALT Alkaline Phosphatase Lactate Dehydrogenase Total Protein Total Protein (PEP) Albumin Albumin % (PEP) Albumin (PEP) Mjrjh-1-Adgnrqdrs Vdsuy-7-Azljaihdw (%) Jdnny-9-Zvscxlykv Sgccn-9-Gntvkxiop (%) Beta Globulins (%) Beta Gamma Globulin Gamma Globulins Gamma Globulins (%) M-King M-King % PEP Comment Whole Bld Vitamin B1 Pending Methylmalonic Acid Homocysteine TSH U Total Protein mg/dL Pending Urine Albumin (PEP) Pending Urine Albumin (%) Pending Urine Globulin EP Pending Urine Globulin Pending U PEP M-King Pending U PEP M-King % Pending Urine Immunofixation Pending Urine TAMARA Comments Pending MAIKEL Scrn Quantitative Anti-Mitochondrial Ab Anti-Smooth Muscle Ab Hepatitis C Antibody Patient ABO/Rh Antibody Screen 03/31/23 03/31/23 03/31/23 07:10 07:10 07:10 WBC 3.34 L RBC 2.23 L Hgb 7.3 L Hct 21.9 L MCV 98 H MCH 32.7 MCHC 33.3 RDW 22.6 H Plt Count 26 L* D MPV 12.5 H Reticulocyte % (Auto) Immature Gran % 0.0 Neutrophils % 35.0 Band Neutrophils % 2 Lymphocytes % 50.0 Atypical Lymphs % 2 Monocytes % 0.0 Eosinophils % 0.0 Basophils % 0.0 Myelocytes % 1 Other Cells % 10 Nucleated RBC % 6.0 H Absolute Neutrophils 1.24 Absolute Lymphocytes 1.74 Absolute Monocytes 0.00 L Absolute Eosinophils 0.00 Absolute Basophils 0.00 RBC Morphology See Below Polychromasia Present Anisocytosis 2+ Haptoglobin PT 10.8 INR 1.1 Fibrinogen D-Dimer VBG Lactate Sodium Potassium Chloride Carbon Dioxide Anion Gap BUN Creatinine Est GFR (CKD-EPI 2020) Glucose Calcium Magnesium Total Bilirubin AST ALT Alkaline Phosphatase Lactate Dehydrogenase Total Protein Total Protein (PEP) Albumin Albumin % (PEP) Albumin (PEP) Grohk-6-Wrsdqfdnv Rifcs-8-Sdkpdmczm (%) Zfifc-9-Moxogueme Zxzla-5-Mkcnhifoq (%) Beta Globulins (%) Beta Gamma Globulin Gamma Globulins Gamma Globulins (%) M-King M-King % PEP Comment Whole Bld Vitamin B1 Methylmalonic Acid Pending Homocysteine Pending TSH U Total Protein mg/dL Urine Albumin (PEP) Urine Albumin (%) Urine Globulin EP Urine Globulin U PEP M-King U PEP M-King % Urine Immunofixation Urine TAMARA Comments MAIKEL Scrn Quantitative Anti-Mitochondrial Ab Anti-Smooth Muscle Ab Hepatitis C Antibody Patient ABO/Rh Antibody Screen 03/31/23 03/31/23 03/31/23 07:10 07:10 07:10 WBC RBC Hgb Hct MCV MCH MCHC RDW Plt Count MPV Reticulocyte % (Auto) 3.2 H Immature Gran % Neutrophils % Band Neutrophils % Lymphocytes % Atypical Lymphs % Monocytes % Eosinophils % Basophils % Myelocytes % Other Cells % Nucleated RBC % Absolute Neutrophils Absolute Lymphocytes Absolute Monocytes Absolute Eosinophils Absolute Basophils RBC Morphology Polychromasia Anisocytosis Haptoglobin Pending PT INR Fibrinogen D-Dimer VBG Lactate Sodium 140 Potassium 4.5 Chloride 105 Carbon Dioxide 16.3 L Anion Gap 18.7 H BUN 13 Creatinine 0.9 Est GFR (CKD-EPI 2020) 73.19 Glucose 146 H Calcium 8.9 Magnesium 1.9 Total Bilirubin 1.8 H AST 83 H ALT 32 Alkaline Phosphatase 471 H Lactate Dehydrogenase Total Protein 7.0 Total Protein (PEP) Albumin 3.0 L Albumin % (PEP) Albumin (PEP) Sfvim-6-Bemcsnhhe Intku-7-Slyjuwesr (%) Adxyo-5-Bvyddkfcv Odiva-3-Exczawrkl (%) Beta Globulins (%) Beta Gamma Globulin Gamma Globulins Gamma Globulins (%) M-King M-King % PEP Comment Whole Bld Vitamin B1 Methylmalonic Acid Homocysteine TSH U Total Protein mg/dL Urine Albumin (PEP) Urine Albumin (%) Urine Globulin EP Urine Globulin U PEP M-King U PEP M-King % Urine Immunofixation Urine TAMARA Comments MAIKEL Scrn Quantitative Anti-Mitochondrial Ab Anti-Smooth Muscle Ab Hepatitis C Antibody Patient ABO/Rh Antibody Screen 03/31/23 03/31/23 03/30/23 07:10 07:10 22:51 WBC RBC Hgb Hct MCV MCH MCHC RDW Plt Count MPV Reticulocyte % (Auto) Immature Gran % Neutrophils % Band Neutrophils % Lymphocytes % Atypical Lymphs % Monocytes % Eosinophils % Basophils % Myelocytes % Other Cells % Nucleated RBC % Absolute Neutrophils Absolute Lymphocytes Absolute Monocytes Absolute Eosinophils Absolute Basophils RBC Morphology Polychromasia Anisocytosis Haptoglobin PT INR Fibrinogen Pending D-Dimer VBG Lactate Sodium Potassium Chloride Carbon Dioxide Anion Gap BUN Creatinine Est GFR (CKD-EPI 2020) Glucose Calcium Magnesium Total Bilirubin AST ALT Alkaline Phosphatase Lactate Dehydrogenase 1614 H Total Protein Total Protein (PEP) Pending Albumin Albumin % (PEP) Pending Albumin (PEP) Pending Xkapx-7-Zwnuokknc Pending Hxmws-8-Ggkggwxdx (%) Pending Sphtl-9-Slsyegexm Pending Sgfry-4-Dkpctwjxt (%) Pending Beta Globulins (%) Pending Beta Gamma Globulin Pending Gamma Globulins Pending Gamma Globulins (%) Pending M-King Pending M-King % Pending PEP Comment Pending Whole Bld Vitamin B1 Methylmalonic Acid Homocysteine TSH 0.91 U Total Protein mg/dL Urine Albumin (PEP) Urine Albumin (%) Urine Globulin EP Urine Globulin U PEP M-King U PEP M-King % Urine Immunofixation Urine TAMARA Comments MAIKEL Scrn Quantitative Anti-Mitochondrial Ab Anti-Smooth Muscle Ab Hepatitis C Antibody Patient ABO/Rh Antibody Screen 03/30/23 03/30/23 03/30/23 22:51 18:12 14:00 WBC RBC Hgb Hct MCV MCH MCHC RDW Plt Count MPV Reticulocyte % (Auto) Immature Gran % Neutrophils % Band Neutrophils % Lymphocytes % Atypical Lymphs % Monocytes % Eosinophils % Basophils % Myelocytes % Other Cells % Nucleated RBC % Absolute Neutrophils Absolute Lymphocytes Absolute Monocytes Absolute Eosinophils Absolute Basophils RBC Morphology Polychromasia Anisocytosis Haptoglobin PT INR Fibrinogen D-Dimer 986 H VBG Lactate Sodium Potassium Chloride Carbon Dioxide Anion Gap BUN Creatinine Est GFR (CKD-EPI 2020) Glucose Calcium Magnesium Total Bilirubin AST ALT Alkaline Phosphatase Lactate Dehydrogenase Total Protein Total Protein (PEP) Albumin Albumin % (PEP) Albumin (PEP) Whlnf-8-Wppiqapvh Wzhnw-5-Yujjiccof (%) Ebbuj-0-Zipnbatgu Jwjvs-6-Tygchsmym (%) Beta Globulins (%) Beta Gamma Globulin Gamma Globulins Gamma Globulins (%) M-King M-King % PEP Comment Whole Bld Vitamin B1 Methylmalonic Acid Homocysteine TSH U Total Protein mg/dL Urine Albumin (PEP) Urine Albumin (%) Urine Globulin EP Urine Globulin U PEP M-King U PEP M-King % Urine Immunofixation Urine TAMARA Comments MAIKEL Scrn Quantitative Cancelled Anti-Mitochondrial Ab Cancelled Anti-Smooth Muscle Ab Cancelled Hepatitis C Antibody Cancelled Patient ABO/Rh O Positive Antibody Screen NEGATIVE Preliminary micro results at discharge 03/30/23 14:34 Urine Culture - Preliminary Urine - Reflex from Staph Sp., Not Aureus PFSH All Active Problems Elevated transaminase level (Acute) UTI (urinary tract infection) (Acute) Folic acid deficiency (Acute) Alkaline phosphatase elevation (Acute) Hyperbilirubinemia (Acute) Abnormal weight loss (Acute) Pancytopenia (Acute) Thrombocytopenia (Chronic) Anemia (Chronic) Leukopenia (Acute) Hepatitis (Acute) Acute hepatitis (Acute) Helicobacter positive gastritis (Acute) AAA (abdominal aortic aneurysm) (Chronic) 02/11/2023 CT scan at ER: 3.65 CM --> annual US for now; discuss ASA and statin w/ pt Note that this is an incorrect diagnosis. No AAA was noted on either CT scan form either 02/11/23 nor from 03/30/23. She has dilated ascending thoracic aorta of 3.65 cm (addendum added per Dr. Pagan) Please make correction in patient's office note Social History Smoking/Tobacco Use Status: Never Second Hand Exposure: No Smoking risk assessment performed?: Yes Alcohol Intake: former Drug use: Never Substance use type: does not use Adopted: No Caregiver/Support person: No Foster care: No Household members: family Housing: house Number of Children: 4 Communication Needs: Language Barriers Do you need help understanding health information?: Always Pets and animals: No Sexually active: No Do you think of yourself as: straight/heterosexual Current gender identity: female What is your relationship status?: How often do you talk on the phone with friends or family?: once per week How often do you get together with friends or relatives?: once per week Do you belong to any clubs or organized social groups?: no Panel score (0-1 are the most socially isolated patients): 1 Emilia/Islam: Scientologist Special emilia needs: No Seatbelt use: always Helmet use: Yes Helmet use: always Drive intox or ride w/intox ambulance driver paramedic: No Do you feel safe at home: Yes Do you feel safe in your relationship?: Yes Time Spent with Patient Time Spent with Patient: <45 minutes Time was spent: referring, communicating with other health respiratory care assistant and care coordination
[2023-03-31] MEDS: HYDROmorphone 2 MG TAB PO (20:43)
--- NOTE | 2023-03-31 21:02 | NUR.NOTE ---
Pt is 62 yo female, RA, A&O X4. pt is Nonspeaking Bulgarian and her daughter will translate for her. Pt has IV on Right AC flushes with no problem. Pt was premeditated with 2 mg Hydromorphone PO prior to DC. Pt is transfer with ambulance on stretcher and pt's daughter will be riding with her. Pt's belongings are with her daughter. report was given to Herlinda at [facility] via phone. charge nurse at [facility] gave report to evangelina.
[2023-04-01 09:16] LABS: Homocysteine 6.9 umol/L (5.0-13.9)
[2023-04-01 09:47] LABS: Haptoglobin 54 mg/dL (32-197)
--- NOTE | 2023-04-01 10:26 | INDS_ITS ---
PT Notes Visit Reasons: Pancytopenia,Transaminitis Patient seen for initial evaluation only on 03/31/23. Following PT evaluation, they were transferred to [facility] for further medical care. D/C from PT services at this facility.
--- NOTE | 2023-04-01 10:26 | PT.INDS ---
PT Notes Visit Reasons: Pancytopenia,Transaminitis Patient seen for initial evaluation only on 03/31/23. Following PT evaluation, they were transferred to [facility] for further medical care. D/C from PT services at this facility.
[2023-04-01 13:28] LABS: Albumin 52.7 % (55.8-66.1); Albumin g/dL 3.5 g/dL (3.6-5.2); Total Protein 6.6 g/dL (6.3-8.2)
[2023-04-01 15:35] LABS: Albumin, Urine % 17.2 %; Albumin, Urine mg/dL <1 mg/dL; Globulins, Urine % 82.8 %; Globulins, Urine mg/dL <4 mg/dL; Immunotyping, Urine (See Note); Total Protein Urine <5 mg/dL (See Note)
[2023-04-01 23:44] LABS: Lab Add On Test DONE
[2023-04-02 09:25] LABS: Leukemia/Lymphoma by FC (Blood (See below)
[2023-04-02 11:03] LABS: Anaplasma phagocytophilum IgG <1:64 titer (<1:64); Ehrlichia Chaffeensis(HME) IgG <1:64 titer (<1:64)
[2023-04-02 17:08] LABS: Babesia divergens/MO-1 Negative (Negative); Babesia duncani Negative (Negative); Babesia microti Negative (Negative)
[2023-04-02 18:05] LABS: Anaplasma phagocytophilum Negative (Negative); Ehrlichia chaffeensis Negative (Negative); Ehrlichia ewingii/canis Negative (Negative); Ehrlichia muris eauclairensis Negative (Negative)
[2023-04-03 09:46] LABS: Methylmalonic Acid 0.19 nmol/mL (<=0.40)
[2023-04-03 16:37] LABS: Thiamine (Vitamin B1), WB 53 nmol/L (70-180)
== END 2023-03-31 20:40 | disposition short-term general hospital (02) | DRG 809 ==
LOC: ER 18:10 → MS 18:31
PROVIDERS: General Practice; Nurse Practitioner Family; Admitting Provider Internal Medicine; Emergency Provider Emergency Medicine Emergency Medical Services; PCP Family Medicine; Visit Provider Internal Medicine
DX: D61.818 Other pancytopenia (principal); N39.0 Urinary tract infection, site not specified; R63.4 Abnormal weight loss; R74.8 Abnormal levels of other serum enzymes; E80.6 Other disorders of bilirubin metabolism; R74.01 Elevation of levels of liver transaminase levels; D53.8 Other specified nutritional anemias; D69.6 Thrombocytopenia, unspecified; D72.819 Decreased white blood cell count, unspecified; K21.9 Gastro-esophageal reflux disease without esophagitis; Z79.899 Other long term (current) drug therapy; D53.9 Nutritional anemia, unspecified; D73.1 Hypersplenism; Z68.26 Body mass index [BMI] 26.0-26.9, adult; R04.0 Epistaxis; R61 Generalized hyperhidrosis; I77.810 Thoracic aortic ectasia; R16.2 Hepatomegaly with splenomegaly, not elsewhere classified; B95.8 Unspecified staphylococcus as the cause of diseases classified elsewhere
CPT/HCPCS: 36415; 70553; 76604; 76705; 76857; 80053; 80186; 83090; 83516; 83690; 84145; 84156; 84166; 85384; 86038; 86255; 86335; 86753; 86803; 86850; 86900; 86901; 87077; 88185; 96365; 96375; 97162; 99285; 70450; 71260; 74177; 74181; 77075; 81003; 81015; 82607; 82746; 83010; 83605; 83615; 83735; 84165; 84425; 84443; 85025; 85045; 85379; 85610; 85730; 86666; 87086; 87186; 87798; 88184; 88189; 99223; 99233; 99238; J0780; J2930; J3490; P9035

== ENCOUNTER 2023-03-30 14:42 | Outpatient (CLI) | payer BC, SELFPAY ==
[2023-03-30 12:51] LABS: Abs Immature Grans 0.18 10^3/uL (0.0-0.06); HCT 24.6 % (36.0-46.0); HGB 8.3 g/dL (11.2-15.7); MCH 33.2 pg (27.0-33.0); MCHC 33.7 % (32.0-36.0); MCV 98 fL (80-95); MPV 11.4 fL (8.0-11.0); RDW 22.6 % (11.7-14.6); RDW-SD 78.8 fL; WBC 3.22 10^3/uL (4.4-10.8)
[2023-03-30 13:11] LABS: Absolute Eosinophil Count 0.06 10^3/uL (0.0-0.7); Absolute Lymphocyte Count 2.19 10^3/uL (1.2-3.4); Absolute Neutrophil Count 0.77 10^3/uL (1.2-6.7); Bands % 1; Metamyelocytes % 2; Myelocytes % 1; Other Cells % 3; Platelet Count 6 10^3/uL (130-400)
[2023-03-30 13:16] LABS: ALT 34 U/L (14-59); AST 97 U/L (15-37); Albumin 3.2 g/dL (3.4-5.0); Alkaline Phosphatase 559 U/L (46-116); Bilirubin, Direct 1.4 mg/dL (0.0-0.2); Bilirubin, Total 2.3 mg/dL (0.2-1.0); Total Protein 7.4 g/dL (6.4-8.2)
[2023-03-31 09:56] LABS: Hepatitis A Antibody IgM Negative (Negative); Hepatitis B Core Antibody Negative (Negative); Hepatitis B surface Ag Negative (Negative); Hepatitis C Ab w Rflx HCV PCR Negative (Negative)
[2023-04-03 10:00] LABS: ANA Pattern: Speckled; Antinuclear Ab,HEp-2 Substrate Positive 1:320 (<1:80(Neg)); Cytoplasmic Pattern: Positive; Mitochondrial Ab, M2 <0.1 U (<0.1)
[2023-04-03 10:03] LABS: Smooth Muscle Ab Screen Negative (Negative)
== END 2023-03-30 14:43 | disposition home or self-care (01) ==
LOC: LBO 14:44
PROVIDERS: PCP Family Medicine; Visit Provider Family Medicine
DX: B17.8 Other specified acute viral hepatitis (principal); R63.4 Abnormal weight loss; R74.8 Abnormal levels of other serum enzymes
CPT/HCPCS: 36415; 80076; 83516; 86038; 86255; 86704; 86709; 86803; 87340; 85025

== ENCOUNTER 2023-05-06 03:29 | Outpatient (CLI) | payer BC, SELFPAY ==
[2023-05-06 17:14] LABS: Absolute Basophil Count 0.05 10^3/uL (0.0-0.2); Absolute Eosinophil Count 0.12 10^3/uL (0.0-0.7); Absolute Lymphocyte Count 0.32 10^3/uL (1.2-3.4); Absolute Monocyte Count 0.87 10^3/uL (0.1-0.8); Absolute Neutrophil Count 6.11 10^3/uL (1.2-6.7); Basophils % 0.7; Eosinophils % 1.6; HCT 28.3 % (36.0-46.0); HGB 9.2 g/dL (11.2-15.7); Immature Grans % 1.3; Lymphocytes % 4.2; MCH 30.6 pg (27.0-33.0); MCHC 32.5 % (32.0-36.0); MCV 94 fL (80-95); MPV 9.7 fL (8.0-11.0); Monocytes % 11.5; Neutrophils % 80.7; Platelet Count 272 10^3/uL (130-400); RBC 3.01 10^6/uL (3.93-5.22); RDW 15.7 % (11.7-14.6); RDW-SD 47.2 fL; WBC 7.57 10^3/uL (4.4-10.8)
[2023-05-06 17:37] LABS: ALT 72 U/L (14-59); AST 44 U/L (15-37); Albumin 3.6 g/dL (3.4-5.0); Alkaline Phosphatase 175 U/L (46-116); Anion Gap 8.1 mmol/L (3-11); BUN 12 mg/dL (7-18); Bilirubin, Total 0.6 mg/dL (0.2-1.0); CO2 26.9 mmol/L (21.0-32.0); CREATININE 0.7 mg/dL (0.55-1.02); Calcium 9.3 mg/dL (8.5-10.1); Chloride 104 mmol/L (98-107); Estimated GFR 98.95 (mL/min/1.73m2); Glucose 99 mg/dL (74-106); LDH 168 U/L (81-234); Potassium 4.2 mmol/L (3.5-5.1); Sodium 139 mmol/L (136-145); Total Protein 6.7 g/dL (6.4-8.2)
== END 2023-05-06 03:30 | disposition home or self-care (01) ==
LOC: LBO 03:29
PROVIDERS: PCP Family Medicine; Visit Provider Internal Medicine Hematology & Oncology
DX: C91.00 Acute lymphoblastic leukemia not having achieved remission (principal)
CPT/HCPCS: 36415; 80053; 86850; 86900; 86901; 83615; 85025

== ENCOUNTER 2023-05-13 04:00 | Outpatient (CLI) | payer BC, SELFPAY ==
[2023-05-13 14:32] LABS: Abs Immature Grans 0.15 10^3/uL (0.0-0.06); Absolute Basophil Count 0.05 10^3/uL (0.0-0.2); Absolute Eosinophil Count 0.11 10^3/uL (0.0-0.7); Absolute Lymphocyte Count 1.11 10^3/uL (1.2-3.4); Absolute Monocyte Count 0.97 10^3/uL (0.1-0.8); Absolute Neutrophil Count 4.81 10^3/uL (1.2-6.7); Basophils % 0.7; Eosinophils % 1.5; HGB 9.6 g/dL (11.2-15.7); Immature Grans % 2.1; Lymphocytes % 15.4; MCH 31.3 pg (27.0-33.0); MCHC 33.1 % (32.0-36.0); MCV 95 fL (80-95); MPV 9.8 fL (8.0-11.0); Monocytes % 13.5; Neutrophils % 66.8; Platelet Count 184 10^3/uL (130-400); RBC 3.07 10^6/uL (3.93-5.22); RDW 17.2 % (11.7-14.6); RDW-SD 57.1 fL
[2023-05-13 15:34] LABS: ALT 96 U/L (14-59); AST 43 U/L (15-37); Albumin 3.5 g/dL (3.4-5.0); Alkaline Phosphatase 188 U/L (46-116); Anion Gap 8.7 mmol/L (3-11); BUN 17 mg/dL (7-18); Bilirubin, Total 0.5 mg/dL (0.2-1.0); CO2 26.3 mmol/L (21.0-32.0); CREATININE 0.8 mg/dL (0.55-1.02); Calcium 9.4 mg/dL (8.5-10.1); Chloride 107 mmol/L (98-107); Glucose 125 mg/dL (74-106); LDH 182 U/L (81-234); Potassium 3.7 mmol/L (3.5-5.1); Sodium 142 mmol/L (136-145); Total Protein 6.4 g/dL (6.4-8.2)
== END 2023-05-13 04:01 | disposition home or self-care (01) ==
LOC: LBO 04:00
PROVIDERS: PCP Family Medicine; Visit Provider Internal Medicine Hematology & Oncology
DX: C91.00 Acute lymphoblastic leukemia not having achieved remission (principal)
CPT/HCPCS: 36415; 80053; 86850; 86900; 86901; 83615; 85025

== ENCOUNTER 2023-05-21 04:54 | Outpatient (RCR) | payer BC, SELFPAY ==
[2023-05-21 08:42] LABS: HCT 28.8 % (36.0-46.0); HGB 9.7 g/dL (11.2-15.7); MCH 31.1 pg (27.0-33.0); MCHC 33.7 % (32.0-36.0); MCV 92 fL (80-95); MPV 10.3 fL (8.0-11.0); RBC 3.12 10^6/uL (3.93-5.22); RDW 16.8 % (11.7-14.6); RDW-SD 55.8 fL; WBC 21.64 10^3/uL (4.4-10.8)
[2023-05-21 08:53] LABS: ALT 317 U/L (14-59); AST 71 U/L (15-37); Albumin 3.6 g/dL (3.4-5.0); Alkaline Phosphatase 167 U/L (46-116); Anion Gap 10.1 mmol/L (3-11); BUN 27 mg/dL (7-18); Bilirubin, Total 1.7 mg/dL (0.2-1.0); CO2 26.9 mmol/L (21.0-32.0); CREATININE 0.7 mg/dL (0.55-1.02); Calcium 9.7 mg/dL (8.5-10.1); Chloride 106 mmol/L (98-107); Estimated GFR 98.95 (mL/min/1.73m2); Glucose 113 mg/dL (74-106); Potassium 3.8 mmol/L (3.5-5.1); Sodium 143 mmol/L (136-145); Total Protein 6.8 g/dL (6.4-8.2)
[2023-05-21] MEDS: Heparin 500 UNITS/5 ML SYRINGE IV (09:09)
[2023-05-21] MEDS: Normal Saline Flush 10 ML SYR IVP (09:09)
[2023-05-21 09:10] LABS: Absolute Lymphocyte Count 0.43 10^3/uL (1.2-3.4); Absolute Neutrophil Count 21.21 10^3/uL (1.2-6.7); Bands % 5; Diff Comment Manual Differential; RBC Morphology Normal
[2023-05-21 09:12] LABS: Platelet Count 86 10^3/uL (130-400)
== END 2023-05-23 23:59 | disposition home or self-care (01) ==
LOC: INF 04:54
PROVIDERS: Internal Medicine; PCP Family Medicine; Visit Provider Internal Medicine Hematology
DX: C91.00 Acute lymphoblastic leukemia not having achieved remission (principal)
CPT/HCPCS: 36591; 80053; 86900; 86901; 85025

== ENCOUNTER 2023-06-22 02:57 | Outpatient (RCR) | payer BC, SELFPAY ==
[2023-05-25] VITALS (7 sets, daily range): BP systolic 93–107; BP diastolic 51–70; PULSE 71–78; RESP 16–18; TEMP 36.4–36.7; O2SAT 100
[2023-05-25] MEDS: Normal Saline Flush 10 ML SYR IVP ×2 (08:24→16:08)
[2023-05-25 08:56] LABS: Absolute Eosinophil Count 0.05 10^3/uL (0.0-0.7); Absolute Monocyte Count 0.01 10^3/uL (0.1-0.8); HCT 23.8 % (36.0-46.0); HGB 7.8 g/dL (11.2-15.7); MCH 30.1 pg (27.0-33.0); MCHC 32.8 % (32.0-36.0); MCV 92 fL (80-95); RBC 2.59 10^6/uL (3.93-5.22); RDW 15.3 % (11.7-14.6); RDW-SD 50.9 fL
[2023-05-25 09:30] LABS: Absolute Lymphocyte Count 0.15 10^3/uL (1.2-3.4)
[2023-05-25 09:33] LABS: Platelet Count 4 10^3/uL (130-400); WBC 0.22 10^3/uL (4.4-10.8)
[2023-05-25 09:34] LABS: Diff Comment Manual Differential; RBC Morphology Normal
[2023-05-25 10:18] LABS: ALT 141 U/L (14-59); AST 44 U/L (15-37); Albumin 3.5 g/dL (3.4-5.0); Alkaline Phosphatase 175 U/L (46-116); Anion Gap 8.3 mmol/L (3-11); BUN 23 mg/dL (7-18); CO2 25.7 mmol/L (21.0-32.0); CREATININE 0.6 mg/dL (0.55-1.02); Calcium 9.6 mg/dL (8.5-10.1); Chloride 106 mmol/L (98-107); Estimated GFR 102.69 (mL/min/1.73m2); Glucose 106 mg/dL (74-106); Potassium 4.1 mmol/L (3.5-5.1); Sodium 140 mmol/L (136-145); Total Protein 6.6 g/dL (6.4-8.2)
[2023-05-28] VITALS (7 sets, daily range): BP systolic 98–106; BP diastolic 59–70; PULSE 73–85; RESP 16–18; TEMP 36–36.5; O2SAT 99–100
[2023-05-28 08:37] LABS: Abs Immature Grans 0.89 10^3/uL (0.0-0.06); HCT 23.1 % (36.0-46.0); HGB 7.8 g/dL (11.2-15.7); MCH 29.8 pg (27.0-33.0); MCHC 33.8 % (32.0-36.0); MCV 88 fL (80-95); MPV 9.6 fL (8.0-11.0); RBC 2.62 10^6/uL (3.93-5.22); RDW 15.7 % (11.7-14.6); RDW-SD 50.5 fL; WBC 5.41 10^3/uL (4.4-10.8)
[2023-05-28 08:49] LABS: ALT 109 U/L (14-59); AST 42 U/L (15-37); Albumin 3.4 g/dL (3.4-5.0); Alkaline Phosphatase 170 U/L (46-116); Anion Gap 10.4 mmol/L (3-11); BUN 13 mg/dL (7-18); Bilirubin, Total 0.4 mg/dL (0.2-1.0); CO2 23.6 mmol/L (21.0-32.0); CREATININE 0.7 mg/dL (0.55-1.02); Calcium 9.4 mg/dL (8.5-10.1); Chloride 105 mmol/L (98-107); Estimated GFR 98.95 (mL/min/1.73m2); Glucose 108 mg/dL (74-106); Magnesium 1.6 mg/dL (1.8-2.4); Potassium 3.8 mmol/L (3.5-5.1); Sodium 139 mmol/L (136-145); Total Protein 6.5 g/dL (6.4-8.2)
[2023-05-28 09:09] LABS: Absolute Basophil Count 0.05 10^3/uL (0.0-0.2); Absolute Eosinophil Count 0.11 10^3/uL (0.0-0.7); Absolute Lymphocyte Count 0.54 10^3/uL (1.2-3.4); Absolute Monocyte Count 1.03 10^3/uL (0.1-0.8); Absolute Neutrophil Count 3.14 10^3/uL (1.2-6.7); Atypical Lymphocytes % 1; Bands % 6; Diff Comment Manual Differential; Metamyelocytes % 5; Myelocytes % 3; Promyelocytes % 2
[2023-05-28 09:10] LABS: Hypochromasia 2+
[2023-05-28 09:12] LABS: Platelet Count 19 10^3/uL (130-400)
[2023-05-28] MEDS: Normal Saline Flush 10 ML SYR IVP (14:33)
[2023-06-01 08:42] LABS: HCT 30.8 % (36.0-46.0); HGB 10.3 g/dL (11.2-15.7); MCH 29.3 pg (27.0-33.0); MCHC 33.4 % (32.0-36.0); MCV 88 fL (80-95); MPV 10.5 fL (8.0-11.0); RBC 3.51 10^6/uL (3.93-5.22); RDW 15.4 % (11.7-14.6); RDW-SD 49.5 fL; WBC 18.44 10^3/uL (4.4-10.8)
[2023-06-01] MEDS: Normal Saline Flush 10 ML SYR IVP (08:54)
[2023-06-01 08:56] LABS: ALT 92 U/L (14-59); AST 48 U/L (15-37); Albumin 3.7 g/dL (3.4-5.0); Alkaline Phosphatase 203 U/L (46-116); BUN 17 mg/dL (7-18); Bilirubin, Total 0.5 mg/dL (0.2-1.0); CREATININE 0.8 mg/dL (0.55-1.02); Calcium 9.8 mg/dL (8.5-10.1); Chloride 104 mmol/L (98-107); Glucose 119 mg/dL (74-106); Magnesium 1.9 mg/dL (1.8-2.4); Potassium 3.9 mmol/L (3.5-5.1); Sodium 138 mmol/L (136-145); Total Protein 7.3 g/dL (6.4-8.2)
[2023-06-01 08:59] LABS: Bands % 10; Platelet Count 79 10^3/uL (130-400)
[2023-06-01 09:00] LABS: Absolute Lymphocyte Count 2.21 10^3/uL (1.2-3.4); Absolute Monocyte Count 1.48 10^3/uL (0.1-0.8); Absolute Neutrophil Count 14.01 10^3/uL (1.2-6.7); Atypical Lymphocytes % 7; Diff Comment Manual Differential; Metamyelocytes % 2; Myelocytes % 2; RBC Morphology Normal
[2023-06-10] MEDS: Normal Saline Flush 10 ML SYR IVP (13:26)
[2023-06-10] MEDS: Heparin 500 UNITS/5 ML SYRINGE IV (13:26)
[2023-06-10 13:31] LABS: Abs Immature Grans 0.04 10^3/uL (0.0-0.06); Absolute Basophil Count 0.05 10^3/uL (0.0-0.2); Absolute Eosinophil Count 0.01 10^3/uL (0.0-0.7); Absolute Lymphocyte Count 2.38 10^3/uL (1.2-3.4); Absolute Monocyte Count 0.91 10^3/uL (0.1-0.8); Absolute Neutrophil Count 3.01 10^3/uL (1.2-6.7); Basophils % 0.8; Eosinophils % 0.2; HCT 27.6 % (36.0-46.0); Immature Grans % 0.6; Lymphocytes % 37.2; MCH 30.3 pg (27.0-33.0); MCHC 32.6 % (32.0-36.0); MCV 93 fL (80-95); MPV 10.4 fL (8.0-11.0); Monocytes % 14.2; Platelet Count 216 10^3/uL (130-400); RBC 2.97 10^6/uL (3.93-5.22); RDW 18.9 % (11.7-14.6); RDW-SD 62.8 fL
[2023-06-10 13:52] LABS: ALT 100 U/L (14-59); AST 66 U/L (15-37); Albumin 3.2 g/dL (3.4-5.0); Alkaline Phosphatase 130 U/L (46-116); Anion Gap 6.3 mmol/L (3-11); BUN 15 mg/dL (7-18); Bilirubin, Total 0.4 mg/dL (0.2-1.0); CO2 25.7 mmol/L (21.0-32.0); CREATININE 0.7 mg/dL (0.55-1.02); Calcium 8.9 mg/dL (8.5-10.1); Chloride 109 mmol/L (98-107); Estimated GFR 98.95 (mL/min/1.73m2); Glucose 133 mg/dL (74-106); Potassium 3.9 mmol/L (3.5-5.1); Sodium 141 mmol/L (136-145); Total Protein 6.1 g/dL (6.4-8.2)
[2023-06-18 09:05] LABS: HCT 33.2 % (36.0-46.0); MCH 30.5 pg (27.0-33.0); MCHC 33.1 % (32.0-36.0); MCV 92 fL (80-95); MPV 11.2 fL (8.0-11.0); Platelet Count 127 10^3/uL (130-400); RBC 3.61 10^6/uL (3.93-5.22); RDW 18.1 % (11.7-14.6); RDW-SD 61.2 fL
[2023-06-18 09:16] LABS: Absolute Neutrophil Count 17.65 10^3/uL (1.2-6.7); Bands % 3
[2023-06-18 09:17] LABS: Absolute Lymphocyte Count 0.36 10^3/uL (1.2-3.4); Absolute Monocyte Count 0.18 10^3/uL (0.1-0.8); Diff Comment Manual Differential; RBC Morphology Normal
[2023-06-18 09:20] LABS: ALT 82 U/L (14-59); AST 17 U/L (15-37); Albumin 3.9 g/dL (3.4-5.0); Alkaline Phosphatase 108 U/L (46-116); Anion Gap 8.5 mmol/L (3-11); BUN 19 mg/dL (7-18); Bilirubin, Total 1.3 mg/dL (0.2-1.0); CO2 25.5 mmol/L (21.0-32.0); CREATININE 0.8 mg/dL (0.55-1.02); Calcium 9.8 mg/dL (8.5-10.1); Chloride 104 mmol/L (98-107); Glucose 135 mg/dL (74-106); LDH 179 U/L (81-234); Potassium 3.8 mmol/L (3.5-5.1); Sodium 138 mmol/L (136-145); Total Protein 6.7 g/dL (6.4-8.2)
[2023-06-18] MEDS: Normal Saline Flush 10 ML SYR IVP (09:50)
[2023-06-22 08:45] LABS: Abs Immature Grans 0.06 10^3/uL (0.0-0.06); Absolute Lymphocyte Count 0.04 10^3/uL (1.2-3.4); HCT 24.7 % (36.0-46.0); HGB 8.6 g/dL (11.2-15.7); MCH 31.4 pg (27.0-33.0); MCHC 34.8 % (32.0-36.0); MCV 90 fL (80-95); RBC 2.74 10^6/uL (3.93-5.22); RDW 16.5 % (11.7-14.6); RDW-SD 54.4 fL
[2023-06-22 08:58] LABS: ALT 173 U/L (14-59); AST 42 U/L (15-37); Albumin 3.6 g/dL (3.4-5.0); Alkaline Phosphatase 83 U/L (46-116); Anion Gap 11.9 mmol/L (3-11); BUN 23 mg/dL (7-18); Bilirubin, Total 0.8 mg/dL (0.2-1.0); CO2 24.1 mmol/L (21.0-32.0); CREATININE 0.9 mg/dL (0.55-1.02); Calcium 9.6 mg/dL (8.5-10.1); Chloride 104 mmol/L (98-107); Estimated GFR 73.19 (mL/min/1.73m2); Glucose 226 mg/dL (74-106); LDH 106 U/L (81-234); Potassium 3.6 mmol/L (3.5-5.1); Sodium 140 mmol/L (136-145); Total Protein 6.1 g/dL (6.4-8.2)
[2023-06-22 09:16] LABS: Absolute Monocyte Count 0.14 10^3/uL (0.1-0.8); Bands % 10
[2023-06-22 09:17] LABS: Absolute Neutrophil Count 0.18 10^3/uL (1.2-6.7)
[2023-06-22 09:18] LABS: WBC 0.35 10^3/uL (4.4-10.8)
[2023-06-22 09:19] LABS: Diff Comment Manual Differential; Platelet Count 34 10^3/uL (130-400); RBC Morphology Normal
[2023-06-22] MEDS: Normal Saline Flush 10 ML SYR IVP (09:29)
== END 2023-06-23 23:59 | disposition home or self-care (01) ==
LOC: INF 02:57
PROVIDERS: Internal Medicine; Internal Medicine Hematology & Oncology; PCP Family Medicine; Visit Provider Internal Medicine Hematology
DX: J30.9 Allergic rhinitis, unspecified (principal); C91.01 Acute lymphoblastic leukemia, in remission; Z91.89 Other specified personal risk factors, not elsewhere classified; Z76.82 Awaiting organ transplant status; D50.0 Iron deficiency anemia secondary to blood loss (chronic)
CPT/HCPCS: 36430; 36591; 80053; 86850; 86900; 86901; 86920; 86945; P9073; 83615; 83735; 85025; P9016; P9035

== ENCOUNTER 2023-07-20 02:27 | Outpatient (RCR) | payer BC, SELFPAY ==
[2023-06-24 00:10] VITALS: BP 104/68; PULSE 81; RESP 16; TEMP 36.1
[2023-06-25] MEDS: Normal Saline Flush 10 ML SYR IVP (08:49)
[2023-06-25 08:54] LABS: HCT 26.3 % (36.0-46.0); HGB 8.9 g/dL (11.2-15.7); MCH 30.6 pg (27.0-33.0); MCHC 33.8 % (32.0-36.0); MCV 90 fL (80-95); RBC 2.91 10^6/uL (3.93-5.22); RDW 17.1 % (11.7-14.6); RDW-SD 56.1 fL; WBC 15.21 10^3/uL (4.4-10.8)
[2023-06-25 09:08] LABS: ALT 139 U/L (14-59); AST 26 U/L (15-37); Albumin 3.2 g/dL (3.4-5.0); Alkaline Phosphatase 93 U/L (46-116); Anion Gap 8.6 mmol/L (3-11); BUN 20 mg/dL (7-18); Bilirubin, Total 0.3 mg/dL (0.2-1.0); CO2 26.4 mmol/L (21.0-32.0); CREATININE 0.9 mg/dL (0.55-1.02); Calcium 9.4 mg/dL (8.5-10.1); Chloride 104 mmol/L (98-107); Estimated GFR 73.19 (mL/min/1.73m2); Glucose 133 mg/dL (74-106); LDH 247 U/L (81-234); Potassium 3.4 mmol/L (3.5-5.1); Sodium 139 mmol/L (136-145); Total Protein 5.6 g/dL (6.4-8.2)
[2023-06-25 09:33] LABS: Absolute Lymphocyte Count 1.83 10^3/uL (1.2-3.4); Absolute Monocyte Count 1.52 10^3/uL (0.1-0.8); Atypical Lymphocytes % 1; Bands % 15
[2023-06-25 09:34] LABS: Anisocytosis 2+; Diff Comment Manual Differential; Metamyelocytes % 4; Polychromasia Present
[2023-06-25 09:43] LABS: Platelet Count 28 10^3/uL (130-400)
[2023-06-29 08:58] LABS: HCT 25.1 % (36.0-46.0); HGB 8.2 g/dL (11.2-15.7); MCH 30.9 pg (27.0-33.0); MCHC 32.7 % (32.0-36.0); MCV 95 fL (80-95); MPV 11.6 fL (8.0-11.0); RBC 2.65 10^6/uL (3.93-5.22); RDW 18.4 % (11.7-14.6); RDW-SD 58.5 fL; WBC 14.38 10^3/uL (4.4-10.8)
[2023-06-29 09:13] LABS: ALT 110 U/L (14-59); AST 44 U/L (15-37); Albumin 3.1 g/dL (3.4-5.0); Alkaline Phosphatase 99 U/L (46-116); Anion Gap 8.5 mmol/L (3-11); BUN 16 mg/dL (7-18); Bilirubin, Total 0.3 mg/dL (0.2-1.0); CO2 25.5 mmol/L (21.0-32.0); CREATININE 0.6 mg/dL (0.55-1.02); Calcium 9.1 mg/dL (8.5-10.1); Chloride 107 mmol/L (98-107); Estimated GFR 102.69 (mL/min/1.73m2); Glucose 109 mg/dL (74-106); LDH 247 U/L (81-234); Potassium 3.6 mmol/L (3.5-5.1); Sodium 141 mmol/L (136-145); Total Protein 5.8 g/dL (6.4-8.2)
[2023-06-29 09:25] LABS: Absolute Lymphocyte Count 0.43 10^3/uL (1.2-3.4); Absolute Monocyte Count 0.72 10^3/uL (0.1-0.8); Absolute Neutrophil Count 12.22 10^3/uL (1.2-6.7); Bands % 9; Diff Comment Manual Differential; Metamyelocytes % 6; Myelocytes % 1; Platelet Count 84 10^3/uL (130-400); RBC Morphology Normal
[2023-07-01] MEDS: Normal Saline Flush 10 ML SYR IVP (12:28)
[2023-07-01 12:29] LABS: Abs Immature Grans 0.59 10^3/uL (0.0-0.06); HCT 24.2 % (36.0-46.0); MCH 31.5 pg (27.0-33.0); MCHC 33.1 % (32.0-36.0); MCV 95 fL (80-95); MPV 10.7 fL (8.0-11.0); Platelet Count 111 10^3/uL (130-400); RBC 2.54 10^6/uL (3.93-5.22); RDW 18.9 % (11.7-14.6); RDW-SD 59.4 fL; WBC 6.97 10^3/uL (4.4-10.8)
[2023-07-01 12:45] LABS: Absolute Basophil Count 0.07 10^3/uL (0.0-0.2); Absolute Lymphocyte Count 0.35 10^3/uL (1.2-3.4); Absolute Monocyte Count 1.25 10^3/uL (0.1-0.8); Absolute Neutrophil Count 4.88 10^3/uL (1.2-6.7); Bands % 3; Metamyelocytes % 4; Myelocytes % 2
[2023-07-01 12:46] LABS: Diff Comment Manual Differential; Poikilocytes 1+; Polychromasia Present
[2023-07-09] MEDS: Normal Saline Flush 10 ML SYR IVP (08:30)
[2023-07-09 08:42] LABS: HCT 29.3 % (36.0-46.0); HGB 10.2 g/dL (11.2-15.7); MCH 31.4 pg (27.0-33.0); MCHC 34.8 % (32.0-36.0); MCV 90 fL (80-95); MPV 12.2 fL (8.0-11.0); RBC 3.25 10^6/uL (3.93-5.22); RDW 17.9 % (11.7-14.6); RDW-SD 59.6 fL; WBC 5.72 10^3/uL (4.4-10.8)
[2023-07-09 08:59] LABS: Absolute Lymphocyte Count 0.11 10^3/uL (1.2-3.4); Absolute Neutrophil Count 5.61 10^3/uL (1.2-6.7); Diff Comment Manual Differential; Platelet Count 38 10^3/uL (130-400); RBC Morphology Normal
[2023-07-20] MEDS: Normal Saline Flush 10 ML SYR IVP (09:00)
[2023-07-20 09:09] LABS: Abs Immature Grans 0.03 10^3/uL (0.0-0.06); Absolute Basophil Count 0.01 10^3/uL (0.0-0.2); Absolute Lymphocyte Count 0.15 10^3/uL (1.2-3.4); Absolute Monocyte Count 0.22 10^3/uL (0.1-0.8); Absolute Neutrophil Count 1.57 10^3/uL (1.2-6.7); Basophils % 0.5; HCT 28.7 % (36.0-46.0); HGB 9.9 g/dL (11.2-15.7); Immature Grans % 1.5; Lymphocytes % 7.6; MCH 29.5 pg (27.0-33.0); MCHC 34.5 % (32.0-36.0); MCV 85 fL (80-95); MPV 10.2 fL (8.0-11.0); Monocytes % 11.1; Neutrophils % 79.3; RBC 3.36 10^6/uL (3.93-5.22); RDW 13.9 % (11.7-14.6); RDW-SD 43.2 fL
[2023-07-20 09:22] LABS: Diff Comment Diff Reviewed; Platelet Count 23 10^3/uL (130-400); RBC Morphology Normal; WBC 1.98 10^3/uL (4.4-10.8)
== END 2023-07-23 23:59 | disposition home or self-care (01) ==
LOC: INF 02:27
PROVIDERS: PCP Family Medicine; Visit Provider Internal Medicine Hematology
DX: C91.01 Acute lymphoblastic leukemia, in remission (principal); Z91.89 Other specified personal risk factors, not elsewhere classified; Z45.2 Encounter for adjustment and management of vascular access device
CPT/HCPCS: 36591; 80053; 86850; 86900; 86901; 83615; 85025

== ENCOUNTER 2023-08-19 18:35 | Emergency (ER) | payer BC, SELFPAY ==
[2023-08-19 18:39] VITALS: BP 125/77; PULSE 115; RESP 20; TEMP 37.8; O2SAT 100
--- NOTE | 2023-08-19 18:45 | DI.RAD_ITS ---
Exam(s) XR CHEST 2V PA LATERAL EXAM: XR CHEST 2V PA LATERAL CLINICAL HISTORY: hx ALL, fever, tachycardia TECHNIQUE: 2D digital imaging was performed. COMPARISON: CR XR BONE SURVEY from 03/31/2023 FINDINGS: A port is noted with tip in SVC. HEART: Normal size. Aorta: Not dilated. PULMONARY VASCULATURE: Normal. LUNGS: Clear. PLEURAL SPACE: No pleural effusion or pneumothorax. BONE:Unremarkable for age. Soft tissues: Unremarkable. IMPRESSION: No acute abnormality. DATA REPOSITORY: RADIATION DOSE DELIVERED:
--- NOTE | 2023-08-19 19:16 | W.ED.GENAD ---
Discharge Plan Disposition Patient Disposition: Home Condition: Improving Discharge Details Chief Complaint: Fever Clinical Impression: COVID Primary Care Provider: Kannan Haro ED Provider: Shantanu Gamino Home Meds and New Rx's Prescriptions: No Action acyclovir 400 mg tablet 400 mg PO BID fluconazole 200 mg tablet 400 mg PO DAILY Rx Instructions: Starting on day 6, until ANC >0.75k sulfamethoxazole-trimethoprim [Bactrim DS] 800-160 mg tablet 1 tab PO .COMPLEX Rx Instructions: 1 tab orally M-W-F; pyridoxine (vitamin B6) 100 mg tablet 100 mg PO DAILY miconazole nitrate 2 % cream 1 applic topical BID prednisolone acetate 1 % drops,suspension 2 drp ophthalmic (eye) Q6H Rx Instructions: for 48 hours after discharge from hospital Discharge Instructions Instructions: COVID-19 (Coronavirus Disease 2019) (ED) Additional Instructions: Please follow-up closely with your oncology team. 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 Will trial fluids and antipyretic. Have drawn. Cultures labs viral swab screening chest x-ray. 21: 33 patient resting notably no acute distress. COVID-positive. Labs and imaging unremarkable. Home care instructions and return precautions given HPI General Date/Time Provider Initiated Documentation: 08/19/23 18:41. 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 No abdominal pain nausea vomiting or diarrhea. Recent dental procedure lower gumline. Related Data Home Medications Medication Instructions Recorded Confirmed acyclovir 400 mg tablet 400 mg PO BID 05/05/23 08/19/23 fluconazole 200 mg tablet 400 mg PO DAILY 05/18/23 08/19/23 miconazole nitrate 2 % topical 1 applic topical BID 07/07/23 08/19/23 cream prednisolone acetate 1 % eye 2 drp ophthalmic (eye) Q6H 07/07/23 08/19/23 drops,suspension pyridoxine (vitamin B6) 100 mg 100 mg PO DAILY 07/07/23 08/19/23 tablet sulfamethoxazole 800 1 tab PO .COMPLEX 07/07/23 08/19/23 mg-trimethoprim 160 mg tablet (Bactrim DS) Allergies Allergy/AdvReac Type Severity Reaction Status Date / Time No Known Allergies Allergy Unverified 08/19/23 18:43 General Stated Complaint: Fever RADHA: 3 Review of Systems Narrative: Review of Systems Constitutional: Fever, fatigue Eyes: negative ENT: Sore throat, runny nose Cardiovascular: negative Respiratory: negative Gastrointestinal: negative : negative Musculoskeletal: negative Skin: negative Neurologic: negative Psych: negative PFSH All Active Problems (Updated 08/19/23 @ 21:34 by Shantanu Gamino MD) COVID (Acute) Severe protein-calorie malnutrition (Acute) 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 No AAA was noted on either CT scan form either 02/11/23 nor from 03/30/23. She has dilated ascending thoracic aorta of 3.65 cm (addendum added per Dr. Pagan) Please make correction in patient's office note Social History Smoking/Tobacco Use Status: Never Second Hand Exposure: No Smoking risk assessment performed?: Yes Alcohol Intake: former Drug use: Never Substance use type: does not use Adopted: No Caregiver/Support person: No Foster care: No Household members: family Housing: house Number of Children: 4 Communication Needs: Language Barriers Do you need help understanding health information?: Always Pets and animals: No Sexually active: No Do you think of yourself as: straight/heterosexual Current gender identity: female What is your relationship status?: How often do you talk on the phone with friends or family?: once per week How often do you get together with friends or relatives?: once per week Do you belong to any clubs or organized social groups?: no Panel score (0-1 are the most socially isolated patients): 1 Emilia/Church: Anglican Special emilia needs: No Seatbelt use: always Helmet use: Yes Helmet use: always Drive intox or ride w/intox vibratory pile driver: No Do you feel safe at home: Yes Do you feel safe in your relationship?: Yes Exam Narrative Exam Narrative: Physical Examination General: alert, awake, cooperative, resting comfortably, no acute distress HEENT: normocephalic, atraumatic; PERRL, EOM intact, conjunctiva normal; no nasal discharge; moist mucous membranes, oral and pharyngeal mucosa normal, tolerating secretions; healthy gumline at site of dental procedure, no fluctuance induration or purulence Neck: supple, trachea midline; full ROM Chest: normal to inspection Respiratory: normal respiratory effort, speaking in full sentences, clear to auscultation, no wheezing, rales or rhonchi Cardiac: Tachycardia, regular rhythm, S1S2 intact, no murmurs rubs or gallops GI: abdomen soft, non-tender, non-distended; no palpable mass or hepatosplenomegaly Skin: no lesions, rashes or trauma appreciated Neuro: AAOx3, normal speech, moving all extremities Psych: Appropriate mood and affect Course Vital Signs Vital signs: Vital Signs Temperature 37.8 C H 08/19/23 18:39 Pulse 115 H 08/19/23 18:39 Respiratory Rate 20 08/19/23 18:39 Blood Pressure 125/77 08/19/23 18:39 Pulse Oximetry 100 08/19/23 18:39 Temperature 37.8 C H 08/19/23 18:39 Temperature Source Oral 08/19/23 18:39 Pulse 115 H 08/19/23 18:39 Respiratory Rate 20 08/19/23 18:39 Blood Pressure 125/77 08/19/23 18:39 Blood Pressure Position Sitting 08/19/23 18:39 Pulse Oximetry 100 08/19/23 18:39 Oxygen Delivery Method Room Air 08/19/23 18:39 Oxygen Flow Rate 0 08/19/23 18:39 Pain Level 6 08/19/23 18:39 Lab/Test Results Lab/Test Results: 08/19/23 18:55 Blood Blood Culture - Pending 08/19/23 18:55 Blood Blood Culture - Pending
[2023-08-19 20:35] LABS: Influenza A PCR Negative (Negative); Influenza B PCR Negative (Negative); RSV PCR Negative (Negative)
--- NOTE | 2023-08-19 20:38 | DI.VRAD_ITS ---
PROCEDURE INFORMATION: Exam: XR Chest Exam date and time: 08/19/2023 8:01 PM Age: 62 years old Clinical indication: Fever; Additional info: HX all, fever, tachycardia TECHNIQUE: Imaging protocol: Radiologic exam of the chest. Views: 2 views. COMPARISON: CT CHEST W 03/31/2023 12:33 PM FINDINGS: Tubes, catheters and devices: There is an implanted Port-A-Cath in the right anterior chest wall with its tip in the superior vena cava. Lungs: No pulmonary consolidation is seen. Pleural spaces: No pleural effusion or pneumothorax is demonstrated. Heart/Mediastinum: Heart size is normal. Bones/joints: The visualized bony structures appear grossly intact. IMPRESSION: No active disease is seen in the chest. Dictated and Authenticated by: Lloyd Herrera MD. Ordering:MADINA Fournier MD
[2023-08-19 20:42] LABS: COVID-19 PCR Positive (Negative); Source Nasopharynx
[2023-08-19] MEDS: ACETAMINOPHEN 1,000 MG/100 ML BTL 400 MG IVPB (20:51)
[2023-08-19] MEDS: Normal Saline 1,000 ML 1000 ML IV (20:51)
[2023-08-19 20:56] LABS: Abs Immature Grans 0.03 10^3/uL (0.0-0.06); Absolute Basophil Count 0.05 10^3/uL (0.0-0.2); Absolute Eosinophil Count 0.23 10^3/uL (0.0-0.7); Absolute Lymphocyte Count 2.19 10^3/uL (1.2-3.4); Absolute Neutrophil Count 4.74 10^3/uL (1.2-6.7); Basophils % 0.6; Eosinophils % 2.7; HCT 32.1 % (36.0-46.0); HGB 10.4 g/dL (11.2-15.7); Immature Grans % 0.4; Lymphocytes % 25.6; MCH 30.9 pg (27.0-33.0); MCHC 32.4 % (32.0-36.0); MCV 95 fL (80-95); Monocytes % 15.2; Neutrophils % 55.5; Platelet Count 108 10^3/uL (130-400); RBC 3.37 10^6/uL (3.93-5.22); RDW 18.5 % (11.7-14.6); WBC 8.54 10^3/uL (4.4-10.8)
[2023-08-19 21:04] LABS: ALT 69 U/L (14-59); AST 29 U/L (15-37); Albumin 3.6 g/dL (3.4-5.0); Alkaline Phosphatase 118 U/L (46-116); BUN 13 mg/dL (7-18); Bilirubin, Total 0.5 mg/dL (0.2-1.0); CREATININE 1.1 mg/dL (0.55-1.02); Calcium 9.3 mg/dL (8.5-10.1); Chloride 105 mmol/L (98-107); Estimated GFR 57.52 (mL/min/1.73m2); Glucose 107 mg/dL (74-106); Potassium 4.1 mmol/L (3.5-5.1); Sodium 141 mmol/L (136-145)
[2023-08-19 22:44] VITALS: BP 104/45; PULSE 93; RESP 22; TEMP 37.3; O2SAT 99
== END 2023-08-19 22:49 | disposition home or self-care (01) ==
PROVIDERS: Emergency Provider Emergency Medicine; PCP Family Medicine
DX: U07.1 COVID-19 (principal); C91.00 Acute lymphoblastic leukemia not having achieved remission; Z79.899 Other long term (current) drug therapy
CPT/HCPCS: 36415; 80053; 87040; 87426; 87637; 96361; 96374; 99283; 71046; 85025; 87081; J0131

== ENCOUNTER → 2023-09-02 02:17 | Outpatient (CLI) | payer BC, SELFPAY ==
--- NOTE | 2023-09-02 | DI.MAMMO_ITS ---
Exam(s) MAMMO SCREENING EXAM: MAMMO SCREENING CLINICAL HISTORY: BREAST CANCER SCREENING Z12.31 R/O BREAST CANCER IN TRANSPLANT PT. TECHNIQUE: Bilateral full field digital CC and MLO mammographic images were obtained with 3D tomosyn thesis and utilizing computer aided detection (CAD). COMPARISON: This is a baseline examination. FINDINGS: Masses/Architectural Distortion: None seen. Microcalcifications: No suspicious pleomorphic-type are seen. Skin Thickening/Nipple Retraction: None. IMPRESSION: 1. No significant interval change with no specific features of malignancy noted. 2. Unless there is more urgent need, screening mammography is recommended, as per [employer] guidelines. BI-RADS Category 1 - Negative Breast Density - Category B - Scattered areas of fibroglandular density Breast density category C or D implies that the patient has dense breast tissue. Dense breast tissue is very common and is not abnormal but dense breast tissue can make it harder to find cancer on a ma mmogram. Also, dense breast tissue may increase their breast cancer risk. This information about the result of the mammogram report was provided to the patient to raise their awareness. Use this report when you speak with the patient about their risks for breast cancer, which includes their family hist ory. At that time, you may recommend for more screening tests (Ultrasound or MRI) as they might be us eful based on their risk. A negative radiographic report should not delay biopsy if a dominant or clinically suspicious mass is present. Up to ten percent of cancers are not identified on mammography. A negative report may reinforce clinical impression. Adenosis and dense breasts may obscure an underlying neoplasm. False positive reports average 6 to 10%. Patient will receive a letter notifying them of these results.
== END ==
PROVIDERS: PCP Family Medicine; Visit Provider Internal Medicine
DX: Z12.31 Encounter for screening mammogram for malignant neoplasm of breast (principal); C91.01 Acute lymphoblastic leukemia, in remission
CPT/HCPCS: 77063; 77067

== ENCOUNTER 2023-09-21 03:05 | Outpatient (RCR) | payer BC, SELFPAY ==
[2023-09-17] MEDS: Normal Saline Flush 10 ML SYR IVP (10:48)
[2023-09-17 11:10] LABS: Abs Immature Grans 0.23 10^3/uL (0.0-0.06); Absolute Basophil Count 0.05 10^3/uL (0.0-0.2); Absolute Eosinophil Count 0.34 10^3/uL (0.0-0.7); Absolute Lymphocyte Count 0.87 10^3/uL (1.2-3.4); Absolute Monocyte Count 0.78 10^3/uL (0.1-0.8); Absolute Neutrophil Count 4.56 10^3/uL (1.2-6.7); Basophils % 0.7; HGB 13.3 g/dL (11.2-15.7); Immature Grans % 3.4; Lymphocytes % 12.7; MCH 30.4 pg (27.0-33.0); MCHC 33.3 % (32.0-36.0); MCV 92 fL (80-95); MPV 10.7 fL (8.0-11.0); Monocytes % 11.4; Neutrophils % 66.8; Platelet Count 111 10^3/uL (130-400); RBC 4.37 10^6/uL (3.93-5.22); RDW 14.4 % (11.7-14.6); RDW-SD 48.6 fL; WBC 6.83 10^3/uL (4.4-10.8)
[2023-09-17 11:26] LABS: ALT 89 U/L (14-59); AST 32 U/L (15-37); Albumin 3.3 g/dL (3.4-5.0); Alkaline Phosphatase 97 U/L (46-116); Anion Gap 9.5 mmol/L (3-11); BUN 15 mg/dL (7-18); Bilirubin, Total 0.5 mg/dL (0.2-1.0); CO2 28.5 mmol/L (21.0-32.0); CREATININE 0.9 mg/dL (0.55-1.02); Calcium 9.7 mg/dL (8.5-10.1); Chloride 103 mmol/L (98-107); Estimated GFR 73.19 (mL/min/1.73m2); Glucose 173 mg/dL (74-106); Potassium 3.7 mmol/L (3.5-5.1); Sodium 141 mmol/L (136-145); Total Protein 6.2 g/dL (6.4-8.2)
[2023-09-21] MEDS: Normal Saline Flush 10 ML SYR IVP (09:25)
[2023-09-21 09:33] LABS: Absolute Basophil Count 0.01 10^3/uL (0.0-0.2); Absolute Eosinophil Count 0.18 10^3/uL (0.0-0.7); Absolute Lymphocyte Count 1.33 10^3/uL (1.2-3.4); Absolute Monocyte Count 0.67 10^3/uL (0.1-0.8); Absolute Neutrophil Count 4.74 10^3/uL (1.2-6.7); Basophils % 0.1; Eosinophils % 2.5; HCT 34.8 % (36.0-46.0); HGB 11.7 g/dL (11.2-15.7); Immature Grans % 2.8; Lymphocytes % 18.7; MCH 31.2 pg (27.0-33.0); MCHC 33.6 % (32.0-36.0); MCV 93 fL (80-95); MPV 10.4 fL (8.0-11.0); Monocytes % 9.4; Neutrophils % 66.5; Platelet Count 117 10^3/uL (130-400); RBC 3.75 10^6/uL (3.93-5.22); RDW 14.4 % (11.7-14.6); RDW-SD 48.4 fL; WBC 7.13 10^3/uL (4.4-10.8)
[2023-09-21 09:52] LABS: ALT 81 U/L (14-59); AST 29 U/L (15-37); Albumin 3.3 g/dL (3.4-5.0); Alkaline Phosphatase 100 U/L (46-116); Anion Gap 7.4 mmol/L (3-11); BUN 14 mg/dL (7-18); Bilirubin, Total 0.5 mg/dL (0.2-1.0); CO2 27.6 mmol/L (21.0-32.0); CREATININE 0.8 mg/dL (0.55-1.02); Calcium 9.4 mg/dL (8.5-10.1); Chloride 108 mmol/L (98-107); Glucose 143 mg/dL (74-106); Potassium 3.8 mmol/L (3.5-5.1); Sodium 143 mmol/L (136-145); Total Protein 6.2 g/dL (6.4-8.2)
== END 2023-09-23 23:59 | disposition home or self-care (01) ==
LOC: INF 03:05
PROVIDERS: PCP Family Medicine; Visit Provider Internal Medicine Hematology
DX: C91.01 Acute lymphoblastic leukemia, in remission (principal); Z45.2 Encounter for adjustment and management of vascular access device
CPT/HCPCS: 36591; 80053; 86850; 86900; 86901; 85025

== ENCOUNTER 2023-09-28 04:49 | Outpatient (RCR) | payer BC, SELFPAY ==
[2023-09-24 09:55] LABS: Abs Immature Grans 0.05 10^3/uL (0.0-0.06); Absolute Basophil Count 0.02 10^3/uL (0.0-0.2); Absolute Monocyte Count 0.48 10^3/uL (0.1-0.8); Absolute Neutrophil Count 3.86 10^3/uL (1.2-6.7); Basophils % 0.4; Eosinophils % 1.8; HCT 34.7 % (36.0-46.0); HGB 11.7 g/dL (11.2-15.7); Immature Grans % 0.9; MCHC 33.7 % (32.0-36.0); MCV 92 fL (80-95); MPV 10.6 fL (8.0-11.0); Monocytes % 8.4; Neutrophils % 67.5; Platelet Count 138 10^3/uL (130-400); RBC 3.77 10^6/uL (3.93-5.22); RDW 14.3 % (11.7-14.6); RDW-SD 48.3 fL; WBC 5.71 10^3/uL (4.4-10.8)
[2023-09-24] MEDS: Normal Saline Flush 10 ML SYR IVP (10:23)
[2023-09-24 10:53] LABS: ALT 62 U/L (14-59); AST 23 U/L (15-37); Albumin 3.4 g/dL (3.4-5.0); Alkaline Phosphatase 94 U/L (46-116); Anion Gap 10.8 mmol/L (3-11); BUN 15 mg/dL (7-18); Bilirubin, Total 0.5 mg/dL (0.2-1.0); CO2 26.2 mmol/L (21.0-32.0); CREATININE 0.9 mg/dL (0.55-1.02); Calcium 9.6 mg/dL (8.5-10.1); Chloride 107 mmol/L (98-107); Estimated GFR 73.19 (mL/min/1.73m2); Glucose 135 mg/dL (74-106); Potassium 3.7 mmol/L (3.5-5.1); Sodium 144 mmol/L (136-145); Total Protein 6.2 g/dL (6.4-8.2)
[2023-09-28 09:33] LABS: Abs Immature Grans 0.02 10^3/uL (0.0-0.06); Absolute Basophil Count 0.01 10^3/uL (0.0-0.2); Absolute Eosinophil Count 0.12 10^3/uL (0.0-0.7); Absolute Lymphocyte Count 1.05 10^3/uL (1.2-3.4); Absolute Neutrophil Count 2.76 10^3/uL (1.2-6.7); Basophils % 0.2; Eosinophils % 2.7; HCT 34.9 % (36.0-46.0); HGB 11.5 g/dL (11.2-15.7); Immature Grans % 0.4; Lymphocytes % 23.5; MCH 30.5 pg (27.0-33.0); MCV 93 fL (80-95); MPV 10.4 fL (8.0-11.0); Monocytes % 11.2; Platelet Count 125 10^3/uL (130-400); RBC 3.77 10^6/uL (3.93-5.22); RDW-SD 47.2 fL; WBC 4.46 10^3/uL (4.4-10.8)
[2023-09-28] MEDS: Normal Saline Flush 10 ML SYR IVP (09:46)
[2023-09-28 09:49] LABS: ALT 49 U/L (14-59); AST 21 U/L (15-37); Albumin 3.5 g/dL (3.4-5.0); Alkaline Phosphatase 84 U/L (46-116); Anion Gap 6.9 mmol/L (3-11); BUN 12 mg/dL (7-18); Bilirubin, Total 0.5 mg/dL (0.2-1.0); CO2 27.1 mmol/L (21.0-32.0); CREATININE 0.8 mg/dL (0.55-1.02); Calcium 9.2 mg/dL (8.5-10.1); Chloride 109 mmol/L (98-107); Glucose 133 mg/dL (74-106); Potassium 3.6 mmol/L (3.5-5.1); Sodium 143 mmol/L (136-145); Total Protein 6.2 g/dL (6.4-8.2)
== END 2023-10-22 23:59 | disposition home or self-care (01) ==
LOC: INF 04:49
PROVIDERS: PCP Family Medicine; Visit Provider Internal Medicine Hematology
DX: C91.01 Acute lymphoblastic leukemia, in remission (principal); Z45.2 Encounter for adjustment and management of vascular access device
CPT/HCPCS: 36591; 80053; 86850; 86900; 86901; 85025

== ENCOUNTER 2023-10-31 00:53 | Emergency (ER) | payer BC, SELFPAY ==
[2023-10-31] VITALS (23 sets, daily range): BP systolic 101–157; BP diastolic 48–91; PULSE 85–106; RESP 18; TEMP 36.9; O2SAT 96–100
--- NOTE | 2023-10-31 01:00 | DI.CT_ITS ---
Exam(s) CT CHEST W EXAM: CT CHEST W CLINICAL HISTORY: L chest port removed 10/27, site actively bleedin TECHNIQUE: Imaging Protocol: Axial computed tomography images with coronal and sagittal reformatted images were created and reviewed CONTRAST MATERIAL: Intravenous: Omnipaque 350Contrast volume:70 mL. COMPARISON: CT CT THORAX ABD/PEL CTA from 02/11/[address] ABDOMEN PELVIS W from 03/30/[address] CHEST W from 03/31/2023 FINDINGS: Tracheobronchial tree: Bronchiectatic changes are seen in the left lower lobe. There is again seen a right tracheal diverticulum. Pulmonary parenchyma: There are no focal consolidating infiltrates. Scarring or atelectasis is seen in the lung bases. No pulmonary nodules are present. Mediastinum and Vera: No dominant adenopathy or fluid collection. The esophagus is unremarkable. Thyroid gland: There are few thyroid nodules. The largest is on the right and measures 1.2 cm. None mergent thyroid ultrasound should be considered for further evaluation. Pleura: No effusion or pneumothorax. Heart: The heart is not dilated. No coronary artery calcifications are seen. No pericardial effusion. Aorta: The ascending thoracic aorta measures 4 x 4.1 cm. (Series 3, image 273.) No evidence of diss ection. Pulmonary arteries: Due to the timing of the bolus pulmonary artery opacification is suboptimal for e valuation of pulmonary emboli. No large central pulmonary embolus is seen. Upper abdomen: Unremarkable. Lymph nodes: Within normal limits. Bones: Within normal limits for the patient's age. Tubes, Catheters, and Lines: The patient has a right sided Ehydoi-Z-Mszo type catheter. The tip is i n good position in the superior vena cava. Soft tissues: Overlying the left chest wall there is soft tissue stranding present. There is a focus of air in the skin defect likely reflecting removal of the patient's port. There is a focal slightl y hyperdense area superficial to the left pectoralis muscle which may represent a hematoma. It measu res 1.2 x 2.3 x 4.4 cm. IMPRESSION: 1. Subcutaneous edema over the left chest wall with a focal hyperdense fluid collection superficial t o the pectoralis muscle which may represent a hematoma. 2. Right-sided Ezxxrw-Z-Zqiy catheter. The tip is in good position in the superior vena cava. 3. No acute pulmonary process. 4. Thyroid nodules. Nonemergent thyroid ultrasound should be considered for further evaluation. RADIATION DOSE DELIVERED: Total DLP DATA REPOSITORY: All CT scans at this facility are submitted to the National Radiology Data Registry (NRDR) Dose Index Registry (DIR) with the [employer] (ACR). RADIATION OPTIMIZATION: All CT scans at this facility use at least one of these dose optimization te chniques: automated exposure control; mA and/or kV adjustment per patient size (includes targeted exa ms where dose is matched to clinical indication); or iterative reconstruction.
--- NOTE | 2023-10-31 01:11 | W.ED.GENAD ---
Discharge Plan Disposition Patient Disposition: Home Condition: Good Discharge Details Clinical Impression: Bleeding, Pancytopenia Primary Care Provider: Kannan Haro ED Provider: Lupe Reyes Home Meds and New Rx's Prescriptions: No Action acyclovir 400 mg tablet 400 mg PO BID fluconazole 200 mg tablet 400 mg PO DAILY Rx Instructions: Starting on day 6, until ANC >0.75k sulfamethoxazole-trimethoprim [Bactrim DS] 800-160 mg tablet 1 tab PO .COMPLEX Rx Instructions: 1 tab orally -W-; pyridoxine (vitamin B6) 100 mg tablet 100 mg PO DAILY miconazole nitrate 2 % cream 1 applic topical BID prednisolone acetate 1 % drops,suspension 2 drp ophthalmic (eye) Q6H Rx Instructions: for 48 hours after discharge from hospital Discharge Instructions Instructions: Thrombocytopenia (ED), Pancytopenia (DC) Additional Instructions: Keep the pressure dressing on for the next 24 hours. After this, change it and leave another dressing on for an additional 24 hours. We discussed your case with Dr. Ross from [facility] [place] heme/onc; if you continue to have bleeding from the site you will likely need a platelet transfusion. It is important to go to the emergency department if this happens again. Follow up with your oncologist; call them on Thursday to schedule an appointment. Return to the emergency department for new or worsening symptoms including if you are bleeding again, feel lightheaded, or if you have any other concerns. Discharge Data Discharge Date/Time-TO BE ENTERED AT DEPARTURE: 10/31/23 04:35 HPI General Mode of arrival: ambulatory. Date/Time Provider Initiated Documentation: 10/31/23 00:58. Limitations to Documentation: language barrier. Information obtained by: patient and family. HPI Narrative: 62yo F with hx leukemia, s/p completed chemo & radiation, recent 1 month long admission to [facility] discharged 10/28/23 after bone marrow transplant, presenting for bleeding from site of IV in left chest. History from patient and daughter at bedside. Was advised to leave dressing in place for 24 hours after device removal, daughter removed dressing on with blood noted on dress but no active bleeding. Some oozing yesterday, reapplied gauze at that time. Tonight patient woke up with dressing saturated and blood pooling onto her shirt. Otherwise no events since hospital discharge. Feeling in her usual state of health with no fevers, chills, rash, lightheadedness, or other concerns. Related Data Home Medications Medication Instructions Recorded Confirmed acyclovir 400 mg tablet 400 mg PO BID 05/05/23 08/19/23 fluconazole 200 mg tablet 400 mg PO DAILY 05/18/23 08/19/23 miconazole nitrate 2 % topical 1 applic topical BID 07/07/23 08/19/23 cream prednisolone acetate 1 % eye 2 drp ophthalmic (eye) Q6H 07/07/23 08/19/23 drops,suspension pyridoxine (vitamin B6) 100 mg 100 mg PO DAILY 07/07/23 08/19/23 tablet sulfamethoxazole 800 1 tab PO .COMPLEX 07/07/23 08/19/23 mg-trimethoprim 160 mg tablet (Bactrim DS) Allergies Allergy/AdvReac Type Severity Reaction Status Date / Time No Known Allergies Allergy Unverified 08/19/23 18:43 General Stated Complaint: GenMedical RADHA: 3 Review of Systems Narrative: see HPI Exam Narrative Exam Narrative: General: Alert, in no acute distress. Head: Normocephalic, atraumatic Neck: Trachea midline, ?Neck supple. ENT: ?MMM.? No oropharygeal lesions or exudate. Cardiac: ?Slightly tachycardiac, no murmurs appreciated Resp: No respiratory distress. CTAB. Chest: Right chest port. Left anterior chest below clavicle with ~0.5cm circular wound slowly oozing blood. Abd: ?Soft, non-distended, nontender : ?No suprapubic tenderness. Extremities: ?No deformities.? No peripheral edema. Neurologic: GCS 15. ? Moves all extremities freely against gravity Course Vital Signs Vital signs: Vital Signs Temperature 36.9 C 10/31/23 00:56 Pulse 106 H 10/31/23 00:56 Respiratory Rate 18 10/31/23 00:56 Blood Pressure 157/91 H 10/31/23 00:56 Pulse Oximetry 100 10/31/23 00:56 Temperature 36.9 C 10/31/23 00:56 Temperature Source Oral 10/31/23 00:56 Pulse 106 H 10/31/23 00:56 Respiratory Rate 18 10/31/23 00:56 Respiratory Effort Normal, Non-Labored 10/31/23 01:02 Blood Pressure 157/91 H 03/09/24 00:56 Blood Pressure Position Sitting 10/31/23 00:56 Pulse Oximetry 100 10/31/23 00:56 Oxygen Delivery Method Room Air 10/31/23 00:56 Oxygen Flow Rate 0 10/31/23 00:56 Pain Level 0 10/31/23 00:56 Medical Decision Making 62yo F with hx leukemia, s/p completed chemo & radiation, recent 1 month long admission to [facility] [place] discharged 10/28/23 after bone marrow transplant, presenting for bleeding from site of IV in left chest. Initial history from patient and daughter at bedside. Tonight patient woke up with dressing saturated and blood pooling onto her shirt. Otherwise no concerns, no fevers, no lightheadedness. Slightly tachycardiac to 106 on arrival, vital signs otherwise reassuring. Slow oozing from wound to left chest ~0.5cm in diameter. Occlusive pressure dressing applied. Labs reviewed as below, pancytopenia with WBC 2.5, Hg 8.3, platelets 22 (on 10/01/23 were 5.1, 12.1, 127 respectively). Normal coags. CMP reassuring. Type and screen sent. CT chest with contrast independently reviewed, no large intrathoracic bleed on my view, agree with radiology read below with hematoma. After two hours wound reassessed, scant blood on dressing, no active bleeding. Discussed with [facility] heme/onc Dr. Ross; patient had left chest port removed, discussed exam and labs here and they appear to be at/near patient's baseline (platelets 15 prior to [facility] discharge). No acute interventions advised; if persistent bleeding would transfuse platelets however with bleeding controlled would not advise at this time. Patient observed in the ED for 3 hours with no further bleeding. Repeat vital signs reassuring, HR in low 90's. Reviewed the importance of re-presenting for care should the bleeding recurr. Advised pressure dressing at home for the next 24-48 hours. Discharged home; discharge instructions including strict return precautions were reviewed with patient and family who verbalized understanding. All questions were answered and they are in full agreement with the plan. Medical Records Medical records reviewed: Yes I reviewed the patient's medical records. Medical records narrative: [facility] labs 10/01/23 Imaging Data Radiologic Study: Imaging: CT Scan Radiologist's impression: IMPRESSION: Edema subcutaneous soft tissues left anterior chest wall and supraclavicular region. More focal hyperdense fluid collection/hematoma just anterior to the left pectoralis 1 x 2 x 3.5 cm Lab Data Lab results reviewed: Yes I reviewed the patient's lab results. Labs: Laboratory Tests Range/Units 10/31/23 01:15 WBC (4.4-10.8) 10^3/uL 2.51 L RBC (3.93-5.22) 10^6/uL 2.91 L Hgb (11.2-15.7) g/dL 8.3 L Hct (36.0-46.0) % 23.1 L MCV (80-95) fL 79 L MCH (27.0-33.0) pg 28.5 MCHC (32.0-36.0) % 35.9 RDW (11.7-14.6) % 11.7 Plt Count (130-400) 10^3/uL 22 L* MPV (8.0-11.0) fL 8.2 Immature Gran % 0.4 Neutrophils % 57.0 Lymphocytes % 0.8 Monocytes % 41.0 Eosinophils % 0.0 Basophils % 0.8 Nucleated RBC % (0.0-0.3) % 0.0 Absolute Neutrophils (1.2-6.7) 10^3/uL 1.43 Absolute Lymphocytes (1.2-3.4) 10^3/uL 0.02 L Absolute Monocytes (0.1-0.8) 10^3/uL 1.03 H Absolute Eosinophils (0.0-0.7) 10^3/uL 0.00 Absolute Basophils (0.0-0.2) 10^3/uL 0.02 RBC Morphology See Below Anisocytosis 1+ PT (9.1-11.1) sec 10.3 INR (0.9-1.1) 1.0 APTT (23.6-32.8) sec 25.4 Sodium (136-145) mmol/L 137 Potassium (3.5-5.1) mmol/L 4.3 Chloride (98-107) mmol/L 101 Carbon Dioxide (21.0-32.0) mmol/L 23.9 Anion Gap (3-11) mmol/L 12.1 H BUN (7-18) mg/dL 18 Creatinine (0.55-1.02) mg/dL 1.4 H Est GFR (CKD-EPI 2020) (mL/min/1.73m2) 43.07 Glucose (74-106) mg/dL 139 H Calcium (8.5-10.1) mg/dL 10.3 H Total Bilirubin (0.2-1.0) mg/dL 0.4 AST (15-37) U/L 26 ALT (14-59) U/L 42 Alkaline Phosphatase (46-116) U/L 157 H Total Protein (6.4-8.2) g/dL 6.8 Albumin (3.4-5.0) g/dL 3.6 Patient ABO/Rh O Positive Antibody Screen NEGATIVE Quality:SDOH Health Related Social Needs: No Data to Display PFSH All Active Problems (Updated 10/31/23 @ 04:13 by Lupe Reyes MD) Bleeding (Acute) COVID (Acute) Severe protein-calorie malnutrition (Acute) 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 No AAA was noted on either CT scan form either 02/11/23 nor from 03/30/23. She has dilated ascending thoracic aorta of 3.65 cm (addendum added per Dr. Pagan) Please make correction in patient's office note Social History Smoking/Tobacco Use Status: Never Second Hand Exposure: No Smoking risk assessment performed?: Yes Alcohol Intake: former Drug use: Never Substance use type: does not use Adopted: No Caregiver/Support person: No Foster care: No Household members: family Housing: house Number of Children: 4 Communication Needs: Language Barriers Do you need help understanding health information?: Always Pets and animals: No Sexually active: No Do you think of yourself as: straight/heterosexual Current gender identity: female What is your relationship status?: How often do you talk on the phone with friends or family?: once per week How often do you get together with friends or relatives?: once per week Do you belong to any clubs or organized social groups?: no Panel score (0-1 are the most socially isolated patients): 1 Emilia/Adventist: Amish Special emilia needs: No Seatbelt use: always Helmet use: Yes Helmet use: always Drive intox or ride w/intox sulky driver: No Do you feel safe at home: Yes Do you feel safe in your relationship?: Yes
[2023-10-31 01:30] LABS: Abs Immature Grans 0.01 10^3/uL (0.0-0.06); Absolute Basophil Count 0.02 10^3/uL (0.0-0.2); Absolute Lymphocyte Count 0.02 10^3/uL (1.2-3.4); Absolute Monocyte Count 1.03 10^3/uL (0.1-0.8); Absolute Neutrophil Count 1.43 10^3/uL (1.2-6.7); Basophils % 0.8; HCT 23.1 % (36.0-46.0); HGB 8.3 g/dL (11.2-15.7); Immature Grans % 0.4; Lymphocytes % 0.8; MCH 28.5 pg (27.0-33.0); MCHC 35.9 % (32.0-36.0); MCV 79 fL (80-95); MPV 8.2 fL (8.0-11.0); RBC 2.91 10^6/uL (3.93-5.22); RDW 11.7 % (11.7-14.6); RDW-SD 33.6 fL; WBC 2.51 10^3/uL (4.4-10.8)
[2023-10-31 01:33] LABS: Platelet Count 22 10^3/uL (130-400)
[2023-10-31 01:35] LABS: Anisocytosis 1+
[2023-10-31 01:36] LABS: PTT Activated 25.4 sec (23.6-32.8); Prothrombin Time 10.3 sec (9.1-11.1)
[2023-10-31 01:37] LABS: ALT 42 U/L (14-59); AST 26 U/L (15-37); Albumin 3.6 g/dL (3.4-5.0); Alkaline Phosphatase 157 U/L (46-116); Anion Gap 12.1 mmol/L (3-11); BUN 18 mg/dL (7-18); Bilirubin, Total 0.4 mg/dL (0.2-1.0); CO2 23.9 mmol/L (21.0-32.0); CREATININE 1.4 mg/dL (0.55-1.02); Calcium 10.3 mg/dL (8.5-10.1); Chloride 101 mmol/L (98-107); Estimated GFR 43.07 (mL/min/1.73m2); Glucose 139 mg/dL (74-106); Potassium 4.3 mmol/L (3.5-5.1); Sodium 137 mmol/L (136-145); Total Protein 6.8 g/dL (6.4-8.2)
[2023-10-31] MEDS: Normal Saline - Diluent 50 ML VIAL IJ (01:54)
[2023-10-31] MEDS: Normal Saline Flush 10 ML SYR IVP (01:55)
[2023-10-31] MEDS: Omnipaque 350 MG/ML 100 ML BTL IJ (01:55)
--- NOTE | 2023-10-31 02:48 | DI.VRAD_ITS ---
PROCEDURE INFORMATION: Exam: CT Chest With Contrast; Diagnostic Exam date and time: 10/31/2023 1:41 AM Age: 62 years old Clinical indication: Other: L chest port removed 10/27, site actively bleedin TECHNIQUE: Imaging protocol: Diagnostic computed tomography of the chest with contrast. 3D rendering (Not supervised by radiologist): MIP and/or 3D reconstructed images were created by the technologist. Contrast material: OMNI 350; Contrast volume: 70 ml; Contrast route: INTRAVENOUS (IV); COMPARISON: CT CHEST W 03/31/2023 12:33 PM FINDINGS: Tubes, catheters and devices: Right infusion port present with the tip at the SVC. Thyroid: Multiple thyroid nodules largest 11 mm. Trachea: Right tracheal diverticulum again noted. Lungs: Scarring and bronchiectasis left lower and right middle lobes. No consolidation. Pleural spaces: Unremarkable. No pneumothorax. No pleural effusion. Heart: Unremarkable. No cardiomegaly. No pericardial effusion. Coronary arteries: No coronary artery calcification. Lymph nodes: Unremarkable. No enlarged lymph nodes. Vasculature: Unremarkable. No aortic aneurysm. Bones/joints: Unremarkable. No acute fracture. Soft tissues: Edema subcutaneous soft tissues left anterior chest wall and supraclavicular region. More focal hyperdense fluid collection/hematoma just anterior to the left pectoralis 1 x 2 x 3.5 cm. IMPRESSION: Edema subcutaneous soft tissues left anterior chest wall and supraclavicular region. More focal hyperdense fluid collection/hematoma just anterior to the left pectoralis 1 x 2 x 3.5 cm. Dictated and Authenticated by: Ab Leiva MD. Ordering:CHANDA Andrade MD
== END 2023-10-31 04:35 | disposition home or self-care (01) ==
PROVIDERS: Emergency Provider Student in an Organized Health Care Education/Training Program; PCP Family Medicine
DX: R58 Hemorrhage, not elsewhere classified (principal); D61.810 Antineoplastic chemotherapy induced pancytopenia; Z85.6 Personal history of leukemia; Z94.81 Bone marrow transplant status; Z92.3 Personal history of irradiation
CPT/HCPCS: 80053; 86850; 86900; 86901; 99285; 71260; 85025; 85610; 85730; 99283; J3490

== ENCOUNTER 2023-11-16 04:35 | Outpatient (RCR) | payer BC, SELFPAY ==
[2023-11-02 08:41] LABS: Abs Immature Grans 0.02 10^3/uL (0.0-0.06); Absolute Basophil Count 0.01 10^3/uL (0.0-0.2); Absolute Lymphocyte Count 0.04 10^3/uL (1.2-3.4); Absolute Monocyte Count 0.95 10^3/uL (0.1-0.8); Absolute Neutrophil Count 0.66 10^3/uL (1.2-6.7); Basophils % 0.6; HCT 22.7 % (36.0-46.0); Immature Grans % 1.2; Lymphocytes % 2.4; MCH 28.6 pg (27.0-33.0); MCHC 35.2 % (32.0-36.0); MCV 81 fL (80-95); Monocytes % 56.5; Neutrophils % 39.3; RDW 11.6 % (11.7-14.6)
[2023-11-02 08:55] LABS: ALT 45 U/L (14-59); AST 30 U/L (15-37); Albumin 3.7 g/dL (3.4-5.0); Alkaline Phosphatase 165 U/L (46-116); Anion Gap 11.8 mmol/L (3-11); BUN 21 mg/dL (7-18); Bilirubin, Total 0.4 mg/dL (0.2-1.0); CO2 25.2 mmol/L (21.0-32.0); CREATININE 1.4 mg/dL (0.55-1.02); Calcium 10.1 mg/dL (8.5-10.1); Chloride 105 mmol/L (98-107); Estimated GFR 43.07 (mL/min/1.73m2); Glucose 141 mg/dL (74-106); Magnesium 1.3 mg/dL (1.8-2.4); Platelet Count 18 10^3/uL (130-400); Potassium 4.4 mmol/L (3.5-5.1); Sodium 142 mmol/L (136-145); WBC 1.68 10^3/uL (4.4-10.8)
[2023-11-02 08:56] LABS: Diff Comment Diff Reviewed; RBC Morphology Normal
[2023-11-02] MEDS: MAGNESIUM SULFATE 2 GM/50 ML BAG IVPB (10:57)
[2023-11-02] MEDS: Normal Saline Flush 10 ML SYR IVP (10:58)
[2023-11-02 12:30] VITALS: BP 115/74; PULSE 101; RESP 16; TEMP 36.6; O2SAT 98
[2023-11-02 13:00] VITALS: BP 118/73; PULSE 94; RESP 18; TEMP 36.5; O2SAT 99
[2023-11-02 13:15] VITALS: BP 106/73; PULSE 94; RESP 16; TEMP 36.6; O2SAT 99
[2023-11-02 13:45] VITALS: BP 116/76; PULSE 97; RESP 17; TEMP 36.6; O2SAT 100
[2023-11-02 14:27] VITALS: BP 116/74; PULSE 94; RESP 16; TEMP 36.4; O2SAT 99
[2023-11-02 14:50] VITALS: BP 123/82; PULSE 84; RESP 16; TEMP 36.5; O2SAT 100
[2023-11-09] MEDS: Normal Saline Flush 10 ML SYR IVP (08:32)
[2023-11-09 08:43] LABS: HGB 8.3 g/dL (11.2-15.7); MCH 29.3 pg (27.0-33.0); MCHC 34.6 % (32.0-36.0); MCV 85 fL (80-95); RBC 2.83 10^6/uL (3.93-5.22); RDW 11.9 % (11.7-14.6); RDW-SD 36.5 fL; WBC 10.62 10^3/uL (4.4-10.8)
[2023-11-09 08:59] LABS: ALT 32 U/L (14-59); AST 25 U/L (15-37); Albumin 3.7 g/dL (3.4-5.0); Alkaline Phosphatase 149 U/L (46-116); Anion Gap 13.1 mmol/L (3-11); BUN 15 mg/dL (7-18); Bilirubin, Total 0.4 mg/dL (0.2-1.0); CO2 22.9 mmol/L (21.0-32.0); CREATININE 1.4 mg/dL (0.55-1.02); Chloride 107 mmol/L (98-107); Estimated GFR 43.07 (mL/min/1.73m2); Glucose 110 mg/dL (74-106); Magnesium 1.1 mg/dL (1.8-2.4); Potassium 4.4 mmol/L (3.5-5.1); Sodium 143 mmol/L (136-145)
[2023-11-09 09:11] LABS: Platelet Count 19 10^3/uL (130-400)
[2023-11-09] MEDS: MAGNESIUM SULFATE 2 GM/50 ML BAG IVPB (09:22)
[2023-11-09] MEDS: Normal Saline 1,000 ML 500 ML IV (09:23)
[2023-11-09 10:25] LABS: C Diff PCR Negative (Negative)
[2023-11-09 12:50] VITALS: BP 117/74; PULSE 84; RESP 16; TEMP 37; O2SAT 100
[2023-11-09 13:15] VITALS: BP 124/76; PULSE 85; RESP 18; TEMP 37; O2SAT 100
[2023-11-16] MEDS: Normal Saline 1,000 ML 500 ML IV (08:25)
[2023-11-16 08:42] LABS: HCT 26.3 % (36.0-46.0); MCH 28.8 pg (27.0-33.0); MCHC 34.2 % (32.0-36.0); MCV 84 fL (80-95); MPV 11.4 fL (8.0-11.0); RBC 3.12 10^6/uL (3.93-5.22); RDW 12.3 % (11.7-14.6); RDW-SD 36.5 fL; WBC 8.77 10^3/uL (4.4-10.8)
[2023-11-16 08:55] LABS: Platelet Count 45 10^3/uL (130-400)
[2023-11-16 09:00] LABS: ALT 40 U/L (14-59); AST 30 U/L (15-37); Albumin 3.9 g/dL (3.4-5.0); Alkaline Phosphatase 144 U/L (46-116); BUN 15 mg/dL (7-18); Bilirubin, Total 0.5 mg/dL (0.2-1.0); CREATININE 1.3 mg/dL (0.55-1.02); Calcium 9.9 mg/dL (8.5-10.1); Chloride 104 mmol/L (98-107); Estimated GFR 46.78 (mL/min/1.73m2); Glucose 121 mg/dL (74-106); Magnesium 1.2 mg/dL (1.8-2.4); Potassium 4.4 mmol/L (3.5-5.1); Sodium 142 mmol/L (136-145)
[2023-11-16] MEDS: MAGNESIUM SULFATE 2 GM/50 ML BAG IVPB (09:22)
[2023-11-16] MEDS: Normal Saline Flush 10 ML SYR IVP (11:15)
== END 2023-11-22 23:59 | disposition home or self-care (01) ==
LOC: INF 04:35
PROVIDERS: Nurse Practitioner Adult Health; PCP Family Medicine; Visit Provider Internal Medicine Hematology
DX: Z76.82 Awaiting organ transplant status (principal); C91.00 Acute lymphoblastic leukemia not having achieved remission; C92.00 Acute myeloblastic leukemia, not having achieved remission; Z91.89 Other specified personal risk factors, not elsewhere classified
CPT/HCPCS: 36430; 36591; 80053; 85027; 86850; 86900; 86901; 86920; 86945; 87493; 96360; 96361; 96365; 96366; P9073; 83735; 85025; J3475; P9016; P9035

== ENCOUNTER 2023-12-01 04:31 | Outpatient (RCR) | payer BC, SELFPAY ==
[2023-11-23 00:19] VITALS: BP 124/76; PULSE 85; RESP 18; TEMP 37
[2023-12-01 08:54] LABS: HCT 21.7 % (36.0-46.0); HGB 7.5 g/dL (11.2-15.7); MCH 31.1 pg (27.0-33.0); MCHC 34.6 % (32.0-36.0); MCV 90 fL (80-95); MPV 10.2 fL (8.0-11.0); RBC 2.41 10^6/uL (3.93-5.22); RDW-SD 63.9 fL; WBC 4.48 10^3/uL (4.4-10.8)
[2023-12-01 09:08] LABS: ALT 33 U/L (14-59); AST 21 U/L (15-37); Albumin 3.7 g/dL (3.4-5.0); Alkaline Phosphatase 94 U/L (46-116); Anion Gap 12.2 mmol/L (3-11); BUN 18 mg/dL (7-18); Bilirubin, Total 0.4 mg/dL (0.2-1.0); CO2 18.8 mmol/L (21.0-32.0); CREATININE 1.7 mg/dL (0.55-1.02); Chloride 103 mmol/L (98-107); Estimated GFR 33.91 (mL/min/1.73m2); Glucose 157 mg/dL (74-106); Magnesium 1.4 mg/dL (1.8-2.4); Potassium 4.8 mmol/L (3.5-5.1); Sodium 134 mmol/L (136-145); Total Protein 6.2 g/dL (6.4-8.2)
[2023-12-01 09:09] LABS: Platelet Count 81 10^3/uL (130-400); RDW 20.2 % (11.7-14.6)
[2023-12-01] MEDS: Normal Saline 1,000 ML 500 ML IV (09:33)
[2023-12-01] MEDS: MAGNESIUM SULFATE 1 GM/100 ML BAG IVINF (09:34)
[2023-12-01] MEDS: Normal Saline Flush 10 ML SYR IVP (10:50)
[2023-12-01 11:23] VITALS: BP 135/82; PULSE 72; RESP 18; TEMP 36.8; O2SAT 96
[2023-12-01 11:38] VITALS: BP 136/81; PULSE 72; RESP 16; TEMP 36.7; O2SAT 100
[2023-12-01 11:55] VITALS: BP 135/85; PULSE 74; RESP 17; TEMP 36.7; O2SAT 100
[2023-12-01 12:25] VITALS: BP 140/83; PULSE 70; RESP 18; TEMP 37.1; O2SAT 100
[2023-12-01 13:20] VITALS: BP 150/82; PULSE 70; RESP 18; TEMP 37.1; O2SAT 100
== END 2023-12-22 23:59 | disposition home or self-care (01) ==
LOC: INF 04:31
PROVIDERS: PCP Family Medicine; Visit Provider Internal Medicine Hematology
DX: C92.00 Acute myeloblastic leukemia, not having achieved remission (principal)
CPT/HCPCS: 36430; 36591; 80053; 85027; 86850; 86900; 86901; 86920; 86945; 96360; 96361; 96365; 83735; J3475; P9016

== ENCOUNTER 2024-02-15 02:46 | Outpatient (RCR) | payer BC, SELFPAY ==
[2024-02-01] MEDS: Normal Saline Flush 10 ML SYR IVP (08:19)
[2024-02-01 08:46] LABS: HCT 26.2 % (36.0-46.0); HGB 9.2 g/dL (11.2-15.7); MCH 34.5 pg (27.0-33.0); MCHC 35.1 % (32.0-36.0); MCV 98 fL (80-95); MPV 11.7 fL (8.0-11.0); RBC 2.67 10^6/uL (3.93-5.22); RDW 15.5 % (11.7-14.6); RDW-SD 55.5 fL; WBC 4.32 10^3/uL (4.4-10.8)
[2024-02-01 08:59] LABS: Platelet Count 35 10^3/uL (130-400)
[2024-02-01 09:00] LABS: ALT 26 U/L (14-59); AST 42 U/L (15-37); Albumin 3.9 g/dL (3.4-5.0); Alkaline Phosphatase 109 U/L (46-116); Anion Gap 11.1 mmol/L (3-11); BUN 19 mg/dL (7-18); Bilirubin, Total 0.4 mg/dL (0.2-1.0); CO2 24.9 mmol/L (21.0-32.0); CREATININE 1.4 mg/dL (0.55-1.02); Calcium 9.8 mg/dL (8.5-10.1); Chloride 106 mmol/L (98-107); Glucose 132 mg/dL (74-106); Magnesium 1.4 mg/dL (1.8-2.4); Potassium 4.1 mmol/L (3.5-5.1); Sodium 142 mmol/L (136-145); Total Protein 6.8 g/dL (6.4-8.2)
[2024-02-01] MEDS: MAGNESIUM SULFATE 1 GM/100 ML BAG IVINF (09:24)
[2024-02-01] MEDS: Normal Saline 1,000 ML 500 ML IV (09:25)
[2024-02-08 09:47] LABS: HCT 24.7 % (36.0-46.0); HGB 8.4 g/dL (11.2-15.7); MCH 34.1 pg (27.0-33.0); MCV 100 fL (80-95); MPV 11.6 fL (8.0-11.0); RBC 2.46 10^6/uL (3.93-5.22); RDW 15.8 % (11.7-14.6); RDW-SD 58.2 fL; WBC 3.22 10^3/uL (4.4-10.8)
[2024-02-08 10:00] LABS: ALT 28 U/L (14-59); AST 24 U/L (15-37); Albumin 3.9 g/dL (3.4-5.0); Alkaline Phosphatase 98 U/L (46-116); Anion Gap 9.3 mmol/L (3-11); BUN 19 mg/dL (7-18); Bilirubin, Total 0.3 mg/dL (0.2-1.0); CO2 24.7 mmol/L (21.0-32.0); CREATININE 1.2 mg/dL (0.55-1.02); Calcium 9.4 mg/dL (8.5-10.1); Chloride 108 mmol/L (98-107); Glucose 126 mg/dL (74-106); Magnesium 1.5 mg/dL (1.8-2.4); Potassium 4.4 mmol/L (3.5-5.1); Sodium 142 mmol/L (136-145); Total Protein 6.5 g/dL (6.4-8.2)
[2024-02-08 10:01] LABS: Platelet Count 57 10^3/uL (130-400)
[2024-02-08] MEDS: Normal Saline 1,000 ML 500 ML IV (10:15)
[2024-02-08] MEDS: MAGNESIUM SULFATE 1 GM/100 ML BAG IVINF (10:17)
[2024-02-08] MEDS: Normal Saline Flush 10 ML SYR IVP (10:18)
== END 2024-02-21 23:59 | disposition home or self-care (01) ==
LOC: INF 02:46
PROVIDERS: Internal Medicine Hematology; PCP Family Medicine; Visit Provider Family Medicine
DX: Z94.81 Bone marrow transplant status (principal); D61.818 Other pancytopenia; Z91.89 Other specified personal risk factors, not elsewhere classified; Z79.899 Other long term (current) drug therapy; R76.8 Other specified abnormal immunological findings in serum; D80.1 Nonfamilial hypogammaglobulinemia; C91.00 Acute lymphoblastic leukemia not having achieved remission
CPT/HCPCS: 36591; 80053; 85027; 86850; 86900; 86901; 96360; 96361; 96365; 96366; 83735; J3475

== ENCOUNTER 2024-02-29 09:00 | Outpatient (RCR) | payer BC, SELFPAY ==
[2024-02-22] MEDS: Normal Saline Flush 10 ML SYR IVP (08:25)
[2024-02-22 08:52] LABS: HCT 24.9 % (36.0-46.0); HGB 8.8 g/dL (11.2-15.7); MCH 35.9 pg (27.0-33.0); MCHC 35.3 % (32.0-36.0); MCV 102 fL (80-95); MPV 9.9 fL (8.0-11.0); RBC 2.45 10^6/uL (3.93-5.22); RDW 15.6 % (11.7-14.6); RDW-SD 57.9 fL; WBC 2.21 10^3/uL (4.4-10.8)
[2024-02-22 09:14] LABS: Platelet Count 95 10^3/uL (130-400)
[2024-02-22 09:17] LABS: ALT 38 U/L (14-59); AST 27 U/L (15-37); Albumin 3.9 g/dL (3.4-5.0); Alkaline Phosphatase 111 U/L (46-116); Anion Gap 9.9 mmol/L (3-11); BUN 25 mg/dL (7-18); Bilirubin, Total 0.47 mg/dL (0.2-1.0); CO2 25.1 mmol/L (21.0-32.0); CREATININE 1.6 mg/dL (0.55-1.02); Calcium 9.3 mg/dL (8.5-10.1); Chloride 108 mmol/L (98-107); Estimated GFR 36.47 (mL/min/1.73m2); Glucose 170 mg/dL (74-106); Magnesium 1.7 mg/dL (1.8-2.4); Potassium 4.4 mmol/L (3.5-5.1); Sodium 143 mmol/L (136-145); Total Protein 6.6 g/dL (6.4-8.2)
[2024-02-22] MEDS: Normal Saline 1,000 ML 1000 ML IV (09:29)
[2024-02-29] MEDS: Normal Saline Flush 10 ML SYR IVP (08:42)
[2024-02-29 08:50] LABS: HCT 24.9 % (36.0-46.0); HGB 8.7 g/dL (11.2-15.7); MCH 35.7 pg (27.0-33.0); MCHC 34.9 % (32.0-36.0); MCV 102 fL (80-95); MPV 10.2 fL (8.0-11.0); Platelet Count 82 10^3/uL (130-400); RBC 2.44 10^6/uL (3.93-5.22); RDW-SD 57.4 fL; WBC 2.72 10^3/uL (4.4-10.8)
[2024-02-29 09:20] LABS: ALT 31 U/L (14-59); AST 22 U/L (15-37); Albumin 3.9 g/dL (3.4-5.0); Alkaline Phosphatase 101 U/L (46-116); Anion Gap 10.8 mmol/L (3-11); BUN 27 mg/dL (7-18); Bilirubin, Total 0.47 mg/dL (0.2-1.0); CO2 23.2 mmol/L (21.0-32.0); CREATININE 1.7 mg/dL (0.55-1.02); Calcium 9.5 mg/dL (8.5-10.1); Chloride 106 mmol/L (98-107); Estimated GFR 33.91 (mL/min/1.73m2); Glucose 153 mg/dL (74-106); Magnesium 1.8 mg/dL (1.8-2.4); Potassium 4.1 mmol/L (3.5-5.1); Sodium 140 mmol/L (136-145); Total Protein 6.4 g/dL (6.4-8.2)
[2024-02-29] MEDS: Normal Saline 1,000 ML 1000 ML IV (09:40)
[2024-02-29 09:51] LABS: RDW 15.3 % (11.7-14.6)
== END 2024-03-23 23:59 | disposition home or self-care (01) ==
LOC: INF 09:00
PROVIDERS: Internal Medicine Hematology; PCP Family Medicine; Visit Provider Family Medicine
DX: C92.00 Acute myeloblastic leukemia, not having achieved remission (principal)
CPT/HCPCS: 36591; 80053; 85027; 86850; 86900; 86901; 83735

== ENCOUNTER 2024-09-16 01:32 | Outpatient (RCR) | payer BC, SELFPAY ==
[2024-09-16] MEDS: Normal Saline Flush 10 ML SYR IVP (09:01)
[2024-09-16 09:17] LABS: ALT 43 U/L (14-59); AST 23 U/L (15-37); Albumin 3.9 g/dL (3.4-5.0); Alkaline Phosphatase 112 U/L (46-116); Anion Gap 4.3 mmol/L (3-11); BUN 17 mg/dL (7-18); Bilirubin, Total 0.44 mg/dL (0.2-1.0); CO2 31.7 mmol/L (21.0-32.0); CREATININE 1.2 mg/dL (0.55-1.02); Calcium 9.2 mg/dL (8.5-10.1); Chloride 108 mmol/L (98-107); Glucose 97 mg/dL (74-106); Potassium 3.8 mmol/L (3.5-5.1); Sodium 144 mmol/L (136-145); Total Protein 6.9 g/dL (6.4-8.2)
[2024-09-19 09:21] LABS: IgA 28 mg/dL (85-499); IgG 488 mg/dL (610-1616); IgM 39 mg/dL (35-242)
== END 2024-09-23 23:59 | disposition home or self-care (01) ==
LOC: INF 01:32
PROVIDERS: Nurse Practitioner Adult Health; PCP Family Medicine; Visit Provider Internal Medicine Hematology
DX: C91.01 Acute lymphoblastic leukemia, in remission (principal); Z94.81 Bone marrow transplant status
CPT/HCPCS: 36591; 80053; 82784

== ENCOUNTER 2024-10-14 00:37 | Outpatient (RCR) | payer BC, SELFPAY ==
[2024-10-14] MEDS: Normal Saline Flush 10 ML SYR IVP (08:49)
[2024-10-14 09:18] LABS: ALT 53 U/L (14-59); AST 31 U/L (15-37); Albumin 4.1 g/dL (3.4-5.0); Alkaline Phosphatase 134 U/L (46-116); Anion Gap 7.1 mmol/L (3-11); BUN 19 mg/dL (7-18); Bilirubin, Total 0.46 mg/dL (0.2-1.0); CO2 27.9 mmol/L (21.0-32.0); CREATININE 1.3 mg/dL (0.55-1.02); Calcium 9.9 mg/dL (8.5-10.1); Chloride 108 mmol/L (98-107); Estimated GFR 46.78 (mL/min/1.73m2); Glucose 98 mg/dL (74-106); Potassium 3.9 mmol/L (3.5-5.1); Sodium 143 mmol/L (136-145); Total Protein 7.1 g/dL (6.4-8.2)
== END 2024-10-21 23:59 | disposition home or self-care (01) ==
LOC: INF 00:37
PROVIDERS: Nurse Practitioner Adult Health; PCP Family Medicine; Visit Provider Internal Medicine Hematology
DX: C91.01 Acute lymphoblastic leukemia, in remission (principal); Z94.81 Bone marrow transplant status
CPT/HCPCS: 36591; 80053

== ENCOUNTER 2024-10-26 13:03 | Emergency (ER) | payer BC, SELFPAY ==
[2024-10-26 13:07] VITALS: BP 177/78; PULSE 105; RESP 16; TEMP 36.9; O2SAT 98
[2024-10-26 13:11] VITALS: BP 177/78; PULSE 105; RESP 16; TEMP 36.9; O2SAT 98
[2024-10-26 13:35] LABS: Bilirubin Negative (Negative); Blood Trace-lysed (Negative); Clarity Clear (Clear); Glucose Negative (Negative); Ketones Negative (Negative); Leukocyte Esterase Moderate (Negative); Nitrite Negative (Negative); Specific Gravity <= 1.005 (1.005-1.025); Urobilinogen 0.2 mg/dL (Up to 0.2); pH 5.5 (5-8)
--- NOTE | 2024-10-26 13:49 | ED.GENADUL_ITS ---
Discharge Plan Disposition Patient Disposition: Home Condition: Good Discharge Details Clinical Impression: UTI (urinary tract infection) Primary Care Provider: Kannan Haro ED Provider: Camacho Chew Home Meds and New Rx's Prescriptions: New cephalexin 500 mg tablet 500 mg PO QID 7 Days Qty: 28 0RF No Action pyridoxine (vitamin B6) 100 mg tablet 100 mg PO DAILY miconazole nitrate 2 % cream 1 applic topical BID mycophenolate mofetil 500 mg tablet 1,000 mg PO TID calcium carbonate [Antacid (calcium carbonate)] 200 mg calcium (500 mg) tablet,chewable 200 mg PO DAILY PRN (Reason: heartburn) Rx Instructions: 1-2 tablets as needed lorazepam 0.5 mg tablet 0.5 mg PO Q6H PRN (Reason: anxiety) omeprazole 20 mg capsule,delayed release(DR/EC) 40 mg PO DAILY hydrocortisone 1 % cream 1 applic topical BID PRN acyclovir 800 mg tablet 800 mg PO .COMPLEX Rx Instructions: 800 mg orally; until year one, note dated 03/11/14 cc Discharge Instructions Instructions: Urinary Tract Infection, Adult ED Additional Instructions: At this time you have evidence of urinary tract infection. Please take the antibiotic as directed. Please drink plenty fluids and stay well-hydrated. If you notice any worsening of your symptoms, or any new symptoms such as vomiting, diarrhea, fever, chills, shortness of breath, chest pain, numbness, weakness, or fainting , please return immediately to the emergency department for reevaluation. Please follow up with your primary care provider as soon as possible for reassessment and reevaluation. As always, it was a pleasure parti cipating in your medical care today. Referrals: Kannan Haro DO [Primary Care Provider] - Discharge Data Discharge Date/Time-TO BE ENTERED AT DEPARTURE: 10/26/24 14:25 HPI General Date/Time Provider Initiated Documentation: 10/26/24 13:12 . HPI Narrative: This is a very pleasant 63-year-old female with a past medical history of positive cytomegalovirus IgG, AL L, abdominal aortic aneurysm, who presents today for evaluation of dysuria. Patient states that she has had mild burning with urination for the past 24 hours. No blood. She does admit to increased frequency. No flank pain fever or chills. No vomiting or diarrhea. No vaginal discharge. No other complaints at this time. Related Data Home Medications ?Medication ?Instructions ?Recorded ?Confirmed miconazole nitrate 2 % topical 1 applic topical BID 07/07/23 10/26/24 cream pyridoxine (vitamin B6) 100 mg 100 mg PO DAILY 07/07/23 10/26/24 tablet calcium carbonate (Antacid 200 mg PO DAILY PRN heartburn 11/13/23 10/26/24 (calcium carbonate)) mycophenolate mofetil 500 mg tablet 1,000 mg PO TID 11/13/23 10/26/24 lorazepam 0.5 mg tablet 0.5 mg PO Q6H PRN anxiety 11/20/23 10/26/24 hydrocortisone 1 % topical cream 1 applic topical BID PRN 12/08/23 10/26/24 omeprazole 20 mg capsule,delayed 40 mg PO DAILY 12/08/23 10/26/24 release acyclovir 800 mg tablet 800 mg PO .COMPLEX 03/18/24 10/26/24 cephalexin 500 mg tablet 500 mg PO QID 7 days #28 tabs 10/26/24 Previous Rx's ?Medication ?Instructions ?Recorded cephalexin 500 mg tablet 500 mg PO QID 7 days #28 tabs 10/26/24 Allergies Allergy/AdvReac Type Severity Reaction Status Date / Time No Known Allergies Allergy Unverified 10/26/24 13:10 General Stated Complaint: Urinary RADHA: 4 Exam Narrative Exam Narrative: 1.Const: Well-nourished, Well-developed, appearing stated age 2.Eyes: PERRL, no conjunctival injection, and symmetrical lids. 3.ENT: Atraumatic external nose and ears. Moist MM. Neck: Symmetric, trachea midline, No thyromegaly. 4.CVS: +S1/S2, Peripheral pulses 2+ and equal in all extremities. Brisk capillary refill in all extremities. 5.RESP: Unlabored respiratory effort. Clear to auscultation bilaterally. No wheezes rales or rhonchi 6.GI: Soft, Nontender/Nondistended, No hepatosplenomegaly. No guarding or rebound. No flank or CVA tenderness. No suprapubic tenderness. 7.MSK: Normocephalic/Atraumatic, Extremities w/o deformity or ttp No cyanosis or clubbing, Normal movement of all extremities 8.Skin: Warm, Dry. No rashes or lesions. 9.Neuro: rolloff driver II-XII grossly intact. Sensation grossly intact, no focal neurologic deficits. 10.Psych: (AAO) x3. Appropriate mood and affect Course Vital Signs Vital signs: Vital Signs Temperature 36.9 C 10/26/24 13:07 Pulse 105 H 10/26/24 13:07 Respiratory Rate 16 10/26/24 13:07 Blood Pressure 177/78 H 10/26/24 13:07 Pulse Oximetry 98 10/26/24 13:07 Temperature 36.9 C 10/26/24 13:11 Pulse 105 H 10/26/24 13:11 Respiratory Rate 16 10/26/24 13:11 Blood Pressure 177/78 H 10/26/24 13:11 Pulse Oximetry 98 10/26/24 13:11 Pain Level 2 10/26/24 13:11 Lab/Test Results Lab/Test Results: Laboratory Tests Range/Units 10/26/24 13:22 Urine Color (Yellow) Yellow Urine Clarity (Clear) Clear Urine pH (5-8) 5.5 Ur Specific [place] (1.005-1.025) <= 1.005 Urine Protein (Neg-Trace) mg/dL Negative Urine Ketones (Negative) mg/dL Negative Urine Blood (Negative) Trace-lysed H Urine Nitrite (Negative) Negative Urine Bilirubin (Negative) Negative Urine Urobilinogen (Up to 0.2) mg/dL 0.2 Ur Leukocyte Esterase (Negative) Moderate H Urine Glucose (Negative) mg/dL Negative Medical Decision Making This is a very pleasant 63-year-old female with a past medical history of positive cytomegalovirus IgG, AL L, abdominal aortic aneurysm, who presents today for evaluation of dysuria. Patient states that she has had mild burning with urination for the past 24 hours. No blood. She does admit to increased frequency. No flank pain fever or chills. No vomiting or diarrhea. No vaginal discharge. No other complaints at this time. Exam demonstrates well-appearing female, no fever, hypotension, abdominal discomfort or flank or CVA tenderness. No symptoms to suggest pyelonephritis or septicemia. Urinalysis shows evidence of UTI. Will give Keflex, 500 every 6 hours due to age and risk factors. Patient will be discharged home. First dose will be given here. I have extensively reviewed the treatment plan and discharge instructions with the patient and their family. I have addressed all patient concerns at this time. The patient and family was made aware of what symptoms to monitor for that would warrant a return to the emergency department. Discussed the plan with the patient and family, they demonstrate verbal understanding and agreement with our assessment and plan at this time. The documentation in this chart was dictated using [employer] dictation software. Please excuse any dictation errors. Quality:SDOH Health Related Social Needs: No Data to Display [facility] All Active Problems (Updated 10/26/24 @ 13:50 by Camacho Chew DO) UTI (urinary tract infection) (Acute) High risk medication use (Acute) Dyspepsia (Acute) labs and EGD per [facility] [place] [place] note dated 03/11/24 cc Hypogammaglobulinemia (Acute) At high risk for infection (Acute) Per 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 No AAA was noted on either CT scan form either 02/11/23 nor from 03/30/23. She has dilated ascending thoracic aorta of 3.65 cm (addendum added per Dr. Pagan) Please make correction in patient's office note Medical History (Updated 10/26/24 @ 13:50 by Camacho Chew DO) Positive CMV IgG serology Surgical History (Updated 05/05/24 @ 11:44 by Arlene Sesay RN) H/O endoscopy (~04/20/24) 04/20/24-[facility] [place]. Indication: Epigastric abdominal pain. referring: DO Licha; biopsied. Negative for H. Pylori. 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 F/u with Hem/Onc Social History Smoking/Tobacco Use Status: Never Second Hand Exposure: No Smoking risk assessment performed?: Yes Alcohol Intake: former Drug use: Never Substance use type: does not use Adopted: No Caregiver/Support person: No Foster care: No Household members: family Housing: house Number of Children: 4 Communication Needs: Language Barriers Do you need help understanding health information?: Always Pets and animals: No Sexually active: No Do you think of yourself as: straight/heterosexual Current gender identity: female What is your relationship status?: How often do you talk on the phone with friends or family?: once per week How often do you get together with friends or relatives?: once per week Do you belong to any clubs or organized social groups?: no Panel score (0-1 are the most socially isolated patients): 1 Emilia/Jew: Druze Special emilia needs: No Seatbelt use: always Helmet use: Yes Helmet use: always Drive intox or ride w/intox haul truck driver: No Do you feel safe at home: Yes Do you feel safe in your relationship?: Yes
[2024-10-26] MEDS: Cephalexin 500 MG CAP PO (13:51)
[2024-10-26 13:59] LABS: Bacteria Moderate HPF (Negative); C & S Indicated? Yes; Casts Negative LPF (Negative); Crystals Negative HPF (Negative); Epithelial Cells Rare HPF (Negative); Mucus Negative (Negative); RBC 0-2 HPF (0-2); WBC 20-50 HPF (0-5)
[2024-10-26 14:16] VITALS: BP 133/84; PULSE 103; RESP 16; TEMP 37.3; O2SAT 98
== END 2024-10-26 14:25 | disposition home or self-care (01) ==
PROVIDERS: Emergency Provider Student in an Organized Health Care Education/Training Program; PCP Family Medicine
DX: N39.0 Urinary tract infection, site not specified (principal); R30.0 Dysuria; R33.8 Other retention of urine
CPT/HCPCS: 99283; 81003; 81015; 87086

== ENCOUNTER 2024-11-11 02:53 | Outpatient (RCR) | payer BC, SELFPAY ==
[2024-11-11] MEDS: Normal Saline Flush 10 ML SYR IVP (09:15)
[2024-11-11 09:20] LABS: Abs Immature Grans 0.02 10^3/uL (0.0-0.06); Absolute Basophil Count 0.02 10^3/uL (0.0-0.2); Absolute Eosinophil Count 0.22 10^3/uL (0.0-0.7); Absolute Neutrophil Count 1.86 10^3/uL (1.2-6.7); Basophils % 0.4 %; Eosinophils % 4.3 %; Immature Grans % 0.4 %; Lymphocytes % 48.8 %; MCH 32.4 pg (27.0-33.0); MCHC 33.3 % (32.0-36.0); MCV 97 fL (80-95); MPV 10.1 fL (8.0-11.0); Monocytes % 9.8 %; Neutrophils % 36.3 %; Platelet Count 100 10^3/uL (130-400); RDW 12.1 % (11.7-14.6); RDW-SD 42.3 fL; WBC 5.12 10^3/uL (4.4-10.8)
[2024-11-11 09:44] LABS: ALT 53 U/L (14-59); AST 29 U/L (15-37); Albumin 3.7 g/dL (3.4-5.0); Alkaline Phosphatase 123 U/L (46-116); Anion Gap 7.6 mmol/L (3-11); BUN 16 mg/dL (7-18); Bilirubin, Total 0.5 mg/dL (0.2-1.0); CO2 28.4 mmol/L (21.0-32.0); CREATININE 1.1 mg/dL (0.55-1.02); Calcium 9.6 mg/dL (8.5-10.1); Chloride 108 mmol/L (98-107); Estimated GFR 56.81 (mL/min/1.73m2); Glucose 95 mg/dL (74-106); LDH 210 U/L (81-234); Magnesium 1.9 mg/dL (1.8-2.4); Potassium 3.9 mmol/L (3.5-5.1); Sodium 144 mmol/L (136-145); Total Protein 6.9 g/dL (6.4-8.2)
[2024-11-14 10:42] LABS: IgG 623 mg/dL (610-1616)
== END 2024-11-21 23:59 | disposition home or self-care (01) ==
LOC: INF 02:53
PROVIDERS: PCP Family Medicine; Visit Provider Internal Medicine Hematology
DX: D80.1 Nonfamilial hypogammaglobulinemia (principal); C91.01 Acute lymphoblastic leukemia, in remission; Z94.81 Bone marrow transplant status
CPT/HCPCS: 36591; 80053; 82784; 86850; 86900; 86901; 83615; 83735; 85025

== ENCOUNTER 2024-12-05 17:10 | Emergency (ER) | payer BC, SELFPAY ==
[2024-12-05] VITALS (7 sets, daily range): BP systolic 139–169; BP diastolic 88–92; PULSE 83–86; RESP 14–20; TEMP 36.4–36.6; O2SAT 98–99
[2024-12-05 17:35] LABS: Bilirubin Negative (Negative); Blood Trace-intact (Negative); Clarity Clear (Clear); Glucose Negative (Negative); Ketones Negative (Negative); Leukocyte Esterase Large (Negative); Nitrite Negative (Negative); Urobilinogen 0.2 mg/dL (Up to 0.2)
--- NOTE | 2024-12-05 17:36 | ED.GENADUL_ITS ---
Discharge Plan Disposition Patient Disposition: Home Condition: Stable Discharge Details Clinical Impression: Urinary tract infection Primary Care Provider: Kannan Haro ED Provider: Camacho Crowley Home Meds and New Rx's Prescriptions: New cephalexin 500 mg capsule 500 mg PO QID 10 Days Qty: 40 0RF Continued pyridoxine (vitamin B6) 100 mg tablet 100 mg PO DAILY miconazole nitrate 2 % cream 1 applic topical BID mycophenolate mofetil 500 mg tablet 1,000 mg PO TID calcium carbonate [Antacid (calcium carbonate)] 200 mg calcium (500 mg) tablet,chewable 200 mg PO DAILY PRN (Reason: heartburn) Rx Instructions: 1-2 tablets as needed lorazepam 0.5 mg tablet 0.5 mg PO Q6H PRN (Reason: anxiety) omeprazole 20 mg capsule,delayed release(DR/EC) 40 mg PO DAILY hydrocortisone 1 % cream 1 applic topical BID PRN acyclovir 800 mg tablet 800 mg PO .COMPLEX Rx Instructions: 800 mg orally; until year one, note dated 03/11/14 cc Discharge Instructions Instructions: Cephalexin, Urinary Tract Infection, Adult ED Additional Instructions: You were seen in the emergency department for your urinary tract infection, you have no flank pain or fever, it is reasonable to treat this with an antibiotic called cephalexin. Please take this as directed, stay well-hydrated, [id number] AZO may help with the discomfort in your urethra, this will turn your urine orange. Please return for any failure to improve after antibiotics especially with worsening flank pain and fever or any other emergent concern. Referrals: Kannan Haro DO [Primary Care Provider] - Discharge Data Discharge Date/Time-TO BE ENTERED AT DEPARTURE: 12/05/24 18:03 HPI General Date/Time Provider Initiated Documentation: 12/05/24 17:15 . HPI Narrative: 64 year-old female presents to ED today by POV/ambulating with a chief complaint of suprapubic abdominal pain and dysuria with onset today. Quality described as burning with urination, no radiation to flank pain, fever, nausea, weakness, hematuria. Severity is described as mild to moderate/10. Palliating factors include nothing attempted. Provoking factors include nothing specific. Events leading up to the incident/Associated Symptoms: Patient denies history of renal stone. Patient not anticoagulated. Related Data Home Medications ?Medication ?Instructions ?Recorded ?Confirmed miconazole nitrate 2 % topical 1 applic topical BID 07/07/23 12/05/24 cream pyridoxine (vitamin B6) 100 mg 100 mg PO DAILY 07/07/23 12/05/24 tablet calcium carbonate (Antacid 200 mg PO DAILY PRN heartburn 11/13/23 12/05/24 (calcium carbonate)) mycophenolate mofetil 500 mg tablet 1,000 mg PO TID 11/13/23 12/05/24 lorazepam 0.5 mg tablet 0.5 mg PO Q6H PRN anxiety 11/20/23 12/05/24 hydrocortisone 1 % topical cream 1 applic topical BID PRN 12/08/23 12/05/24 omeprazole 20 mg capsule,delayed 40 mg PO DAILY 12/08/23 12/05/24 release acyclovir 800 mg tablet 800 mg PO .COMPLEX 03/18/24 12/05/24 cephalexin 500 mg capsule 500 mg PO QID 10 days #40 caps 12/05/24 Previous Rx's ?Medication ?Instructions ?Recorded cephalexin 500 mg capsule 500 mg PO QID 10 days #40 caps 12/05/24 Allergies Allergy/AdvReac Type Severity Reaction Status Date / Time No Known Allergies Allergy Unverified 12/05/24 17:17 General Stated Complaint: Urinary RADHA: 3 Review of Systems All systems reviewed & are unremarkable except as noted in HPI and below Exam Narrative Exam Narrative: GENERAL APPEARANCE: Well-nourished, non-toxic, awake and alert, atraumatic, no acute distress. SKIN: Warm, pink, dry, intact, without rashes/lesions/ulcerations. HEAD: Normocephalic, atraumatic, normal hair distribution for gender/age. EYES: Normal conjunctiva, no exudates on lids/lashes. ENT: Nares patent, no circumoral cyanosis, no facial swelling NECK: Supple, trachea midline, painless cervical ROM. LUNGS/CHEST: Non-labored respirations, normal A/P diameter, symmetrical expansion, no chest wall deformity HEART (CV/PV): No peripheral edema, no JVD. ABDOMEN: Soft, non-distended, no guarding, mild suprapubic tenderness without peritoneal signs, no CVA tenderness to percussion bilaterally. MSK: Normal ROM, no swelling/deformity to bilateral UEs or LEs, moving all extremities without weakness, no cyanosis, spine midline without tenderness, normal curvature. NEURO: Mental Status AAOx4 - alert to person, place, time, events No facial droop, no forehead involvement. Motor: No focal weakness - strength 5/5 in bilateral UEs and LEs, proximal and distal, symmetric. Sensory: sensation intact to light touch globally. Gait normal: patient ambulated without ataxia into ED room. PSYCH: euthymic, cooperative, pleasant, appropriate speech Course Vital Signs Vital signs: Vital Signs Pulse 86 12/05/24 17:14 Respiratory Rate 20 12/05/24 17:14 Blood Pressure 169/92 H 12/05/24 17:14 Pulse Oximetry 99 12/05/24 17:14 Temperature 36.4 C 12/05/24 17:32 Temperature Source Oral 12/05/24 17:32 Pulse 84 12/05/24 17:33 Respiratory Rate 20 12/05/24 17:16 Blood Pressure 142/92 H 12/05/24 17:33 Blood Pressure Mean 105 12/05/24 17:33 Blood Pressure Position Sitting 12/05/24 17:16 Pulse Oximetry 98 12/05/24 17:20 Oxygen Delivery Method Room Air 12/05/24 17:16 Oxygen Flow Rate 0 12/05/24 17:16 Lab/Test Results Lab/Test Results: Laboratory Tests Range/Units 12/05/24 17:24 Urine Color (Yellow) Yellow Urine Clarity (Clear) Clear Urine pH (5-8) 7.0 Ur Specific [place] (1.005-1.025) 1.010 Urine Protein (Neg-Trace) mg/dL Negative Urine Ketones (Negative) mg/dL Negative Urine Blood (Negative) Trace-intact H Urine Nitrite (Negative) Negative Urine Bilirubin (Negative) Negative Urine Urobilinogen (Up to 0.2) mg/dL 0.2 Ur Leukocyte Esterase (Negative) Large H Urine Glucose (Negative) mg/dL Negative Medical Decision Making This dictation utilizes [id number] dictation software and may contain unedited grammatical errors. 64 year-old female presents to ED today by POV/ambulating with a chief complaint of suprapubic abdominal pain and dysuria with onset today. Quality described as burning with urination, no radiation to flank pain, fever, nausea, weakness, hematuria. Severity is described as mild to moderate/10. Palliating factors in clude nothing attempted. Provoking factors include nothing specific. Events leading up to the incident/Associated Symptoms: Patient denies history of renal stone. Patients' medical history: History of UTIs, anemia, AAA, dyspepsia, PIETER. Family and social history: Lives at home with family, no drug or alcohol use. Pertinent exam findings / vital signs include mild suprapubic tenderness without peritoneal signs, no CVA tenderness to percussion bilaterally, benign cardiopulmonary status, nontoxic and afebrile. Differential / pathologies of concern include urinary tract infection, vaginitis, pyelonephritis less likely. Diagnostic studies of: -UA- shows 10-20 WBCs on micro, treating with ABX. Interventions of: -Rx for cephalexin. ED Course/Assessment/Plan: 64-year-old female presents with 1 day onset of suprapubic tenderness and dysuria, 10-20 WBCs on urinalysis microscopic exam, treating for urinary tract infection with cephalexin, stressed strict return criteria for any severe acute worsening, urinary retention, worsening flank pain with fever despite treatment or any other emergent concerns. Findings not consistent with peritonitis, pyelonephritis, sepsis, infected kidney stone. Disposition of urinary tract infection. Patient verbalized understanding of the plan and return to ED criteria and engaged in shared decision making. Medical Records Medical records reviewed: Yes I reviewed the patient's medical records. Lab Data Lab results reviewed: Yes I reviewed the patient's lab results. Labs: 12/05/24 17:24 Urine - Reflex from Ua Urine Culture - Final Gram positive laina, mixed Laboratory Tests Range/Units 12/05/24 17:24 Urine Color (Yellow) Yellow Urine Clarity (Clear) Clear Urine pH (5-8) 7.0 Ur Specific [place] (1.005-1.025) 1.010 Urine Protein (Neg-Trace) mg/dL Negative Urine Ketones (Negative) mg/dL Negative Urine Blood (Negative) Trace-intact H Urine Nitrite (Negative) Negative Urine Bilirubin (Negative) Negative Urine Urobilinogen (Up to 0.2) mg/dL 0.2 Ur Leukocyte Esterase (Negative) Large H Urine RBC (0-2) HPF 0-2 Urine WBC (0-5) HPF 10-20 H Ur Epithelial Cells (Negative) HPF Rare Urine Crystals (Negative) HPF Negative Urine Bacteria (Negative) HPF Rare Urine Casts (Negative) LPF Negative Urine Mucus (Negative) Negative Ur Culture Indicated? Yes Urine Glucose (Negative) mg/dL Negative Quality:SDOH Health Related Social Needs: No Data to Display [facility] All Active Problems (Updated 12/05/24 @ 17:48 by PALMA Godoy) Urinary tract infection (Acute) High risk medication use (Acute) Dyspepsia (Acute) labs and [place] [facility] [place] cc Hypogammaglobulinemia (Acute) At high risk for infection (Acute) Per [facility] [place] 12/04/23 PIETER (acute kidney injury) (Acute) CMV (cytomegalovirus infection) (Acute) Unspecified type COVID (Acute) Severe protein-calorie malnutrition (Acute) 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 No AAA was noted on either CT scan form either 02/11/23 nor from 03/30/23. She has dilated ascending thoracic aorta of 3.65 cm (addendum added per Dr. Pagan) Please make correction in patient's office note Medical History (Updated 12/05/24 @ 17:48 by PALMA Godoy) Positive CMV IgG serology Surgical History (Updated 05/05/24 @ 11:44 by Arlene Sesay RN) H/O endoscopy (~04/20/24) [place] [place] Indication: Epigastric abdominal pain. referring: DO Licha; biopsied. Negative for H. Pylori. 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 F/u with Hem/Onc Social History Smoking/Tobacco Use Status: Never Second Hand Exposure: No Smoking risk assessment performed?: Yes Alcohol Intake: former Drug use: Never Substance use type: does not use Adopted: No Caregiver/Support person: No Foster care: No Household members: family Housing: house Number of Children: 4 Communication Needs: Language Barriers Do you need help understanding health information?: Always Pets and animals: No Sexually active: No Do you think of yourself as: straight/heterosexual Current gender identity: female What is your relationship status?: How often do you talk on the phone with friends or family?: once per week How often do you get together with friends or relatives?: once per week Do you belong to any clubs or organized social groups?: no Panel score (0-1 are the most socially isolated patients): 1 Emilia/Shinto: Mormonism Special emilia needs: No Seatbelt use: always Helmet use: Yes Helmet use: always Drive intox or ride w/intox 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
[2024-12-05 17:44] LABS: Bacteria Rare HPF (Negative); C & S Indicated? Yes; Casts Negative LPF (Negative); Crystals Negative HPF (Negative); Epithelial Cells Rare HPF (Negative); Mucus Negative (Negative); RBC 0-2 HPF (0-2)
== END 2024-12-05 18:03 | disposition home or self-care (01) ==
PROVIDERS: Emergency Medicine; Emergency Provider Physician Assistant; PCP Family Medicine
DX: N39.0 Urinary tract infection, site not specified (principal); C91.01 Acute lymphoblastic leukemia, in remission
CPT/HCPCS: 99283; 81003; 81015; 87086

== ENCOUNTER 2024-12-09 00:41 | Outpatient (RCR) | payer BC, SELFPAY ==
[2024-12-09] MEDS: Normal Saline Flush 10 ML SYR IVP (09:25)
[2024-12-09 09:45] LABS: ALT 53 U/L (14-59); AST 34 U/L (15-37); Albumin 3.8 g/dL (3.4-5.0); Alkaline Phosphatase 143 U/L (46-116); Anion Gap 8.8 mmol/L (3-11); BUN 20 mg/dL (7-18); Bilirubin, Total 0.5 mg/dL (0.2-1.0); CO2 28.2 mmol/L (21.0-32.0); CREATININE 1.1 mg/dL (0.55-1.02); Calcium 9.5 mg/dL (8.5-10.1); Chloride 105 mmol/L (98-107); Estimated GFR 56.81 (mL/min/1.73m2); Glucose 115 mg/dL (74-106); Sodium 142 mmol/L (136-145); Total Protein 7.1 g/dL (6.4-8.2)
== END 2024-12-21 23:59 | disposition home or self-care (01) ==
LOC: INF 00:41
PROVIDERS: PCP Family Medicine; Visit Provider Internal Medicine Hematology
DX: C91.01 Acute lymphoblastic leukemia, in remission (principal); Z94.81 Bone marrow transplant status
CPT/HCPCS: 36591; 80053

== ENCOUNTER 2025-01-03 15:29 | Emergency (ER) | payer BC, SELFPAY ==
[2025-01-03 15:33] VITALS: BP 136/79; PULSE 90; RESP 16; TEMP 37; O2SAT 97
[2025-01-03 15:55] LABS: Bilirubin Negative (Negative); Blood Moderate (Negative); Clarity Clear (Clear); Glucose Negative (Negative); Ketones Negative (Negative); Leukocyte Esterase Large (Negative); Nitrite Negative (Negative); Urobilinogen 0.2 mg/dL (Up to 0.2)
[2025-01-03 16:09] LABS: Bacteria Many HPF (Negative); C & S Indicated? Yes; Casts Negative LPF (Negative); Crystals Few Amorphous HPF (Negative); Epithelial Cells Few HPF (Negative); Mucus Negative (Negative); Other Cells Rare Renal (Negative); WBC >50 HPF (0-5)
[2025-01-03 16:41] VITALS: BP 143/96; PULSE 93; RESP 16; O2SAT 97
--- NOTE | 2025-01-03 16:44 | ED.GENADUL_ITS ---
Discharge Plan Disposition Patient Disposition: Home Condition: Stable Discharge Details Clinical Impression: UTI (urinary tract infection) Primary Care Provider: Kannan Haro ED Provider: Georgia Bowens Home Meds and New Rx's Prescriptions: New cephalexin 500 mg capsule 500 mg PO QID 6 Days Qty: 24 0RF conjugated estrogens 0.625 mg/gram cream 0.625 mg vaginal DAILY 14 Days Qty: 30 0RF Rx Instructions: off 5 days; repeat cycle No Action pyridoxine (vitamin B6) 100 mg tablet 100 mg PO DAILY miconazole nitrate 2 % cream 1 applic topical BID mycophenolate mofetil 500 mg tablet 1,000 mg PO TID calcium carbonate [Antacid (calcium carbonate)] 200 mg calcium (500 mg) tablet,chewable 200 mg PO DAILY PRN (Reason: heartburn) Rx Instructions: 1-2 tablets as needed lorazepam 0.5 mg tablet 0.5 mg PO Q6H PRN (Reason: anxiety) omeprazole 20 mg capsule,delayed release(DR/EC) 40 mg PO DAILY hydrocortisone 1 % cream 1 applic topical BID PRN acyclovir 800 mg tablet 800 mg PO .COMPLEX Rx Instructions: 800 mg orally; until year one, note dated 03/11/14 cc Discharge Instructions Instructions: Urinary Tract Infection, Adult ED Additional Instructions: You were seen in the emergency department today for evaluation of pain when you urinate, and were found to have a urinary tract infection. In our department you do full physical examination performed and I have started you on antibiotics. As you have had several urinary tract infections this year I also recommend that you start using vaginal estrogen, once per day for the next 2 weeks. This can reduce the recurrence of urinary tract infection in postmenopausal women. You need to discuss this with your primary care provider at a follow-up visit in the next few days as they may wish to continue this medication or alter the frequency with which you are using the vaginal cream. Please take all of the antibiotics until they are gone, even if you start to feel better. Thank you for allowing us to be part of your care. Discharge Data Discharge Date/Time-TO BE ENTERED AT DEPARTURE: 01/03/25 16:52 HPI General Mode of arrival: ambulatory . Date/Time Provider Initiated Documentation: 01/03/25 15:48 . Limitations to Documentation: language barrier . Information obtained by: patient, family and old records reviewed . HPI Narrative: This is a 64-year-old female patient with a past medical history significant for ALL in remission, as well as frequent UTIs who is presenting for evaluation of dysuria. History is obtained with the assistance of the patient's family member, who prefers to translate for the patient. Today the patient noticed that she had a burning sensation when she urinated, and felt increased urinary urgency. This is not associated with any fevers or chills, nausea or vomiting, abdominal or flank pain. She reports that her last urinary tract infection was in October of this year, and she completed a course of ciprofloxacin. This is an isolated complaint and the patient has otherwise been in her normal state of health. Related Data Home Medications ?Medication ?Instructions ?Recorded ?Confirmed miconazole nitrate 2 % topical 1 applic topical BID 07/07/23 12/05/24 cream pyridoxine (vitamin B6) 100 mg 100 mg PO DAILY 07/07/23 12/05/24 tablet calcium carbonate (Antacid 200 mg PO DAILY PRN heartburn 11/13/23 12/05/24 (calcium carbonate)) mycophenolate mofetil 500 mg tablet 1,000 mg PO TID 11/13/23 12/05/24 lorazepam 0.5 mg tablet 0.5 mg PO Q6H PRN anxiety 11/20/23 12/05/24 hydrocortisone 1 % topical cream 1 applic topical BID PRN 12/08/23 12/05/24 omeprazole 20 mg capsule,delayed 40 mg PO DAILY 12/08/23 12/05/24 release acyclovir 800 mg tablet 800 mg PO .COMPLEX 03/18/24 12/05/24 cephalexin 500 mg capsule 500 mg PO QID 6 days #24 caps 01/03/25 conjugated estrogens 0.625 mg/gram 0.625 mg vaginal DAILY 2 weeks #30 01/03/25 vaginal cream grams Previous Rx's ?Medication ?Instructions ?Recorded cephalexin 500 mg capsule 500 mg PO QID 6 days #24 caps 01/03/25 conjugated estrogens 0.625 mg/gram 0.625 mg vaginal DAILY 2 weeks #30 01/03/25 vaginal cream grams Allergies Allergy/AdvReac Type Severity Reaction Status Date / Time No Known Allergies Allergy Unverified 01/03/25 15:36 General Stated Complaint: Urinary RADHA: 4 Exam Narrative Exam Narrative: Gen: Awake and alert, in no apparent distress HEENT: Non-icteric sclera Neck: Supple Lungs: No apparent respiratory distress, normal respiratory effort. CV: Appears well perfused, strong distal pulses Abdomen: Non-distended, soft, nontender to palpation without rigidity, rebound, or guarding MSK: Moves 4 extremities without apparent limitation in ROM. No CVA tenderness Skin: Visualized skin without rashes, cyanosis. Neuro: Normal Gait, no obvious focal deficits or facial asymmetry. Speaks in full, clear sentences. Psych: Appropriate for situation. Course Vital Signs Vital signs: Vital Signs Temperature 37.0 C 01/03/25 15:33 Pulse 90 01/03/25 15:33 Respiratory Rate 16 01/03/25 15:33 Blood Pressure 136/79 01/03/25 15:33 Pulse Oximetry 97 01/03/25 15:33 Temperature 37.0 C 01/03/25 15:33 Pulse 93 H 01/03/25 16:41 Respiratory Rate 16 01/03/25 16:41 Blood Pressure 143/96 H 01/03/25 16:41 Blood Pressure Mean 111 01/03/25 16:41 Pulse Oximetry 97 01/03/25 16:41 Oxygen Delivery Method Room Air 01/03/25 16:41 Oxygen Flow Rate 0 01/03/25 16:41 Lab/Test Results Lab/Test Results: 01/03/25 15:36 Urine - Reflex from Ua Urine Culture - Pending Laboratory Tests Range/Units 01/03/25 15:36 Urine Color (Yellow) Yellow Urine Clarity (Clear) Clear Urine pH (5-8) 7.0 Ur Specific [place] (1.005-1.025) 1.010 Urine Protein (Neg-Trace) mg/dL Negative Urine Ketones (Negative) mg/dL Negative Urine Blood (Negative) Moderate H Urine Nitrite (Negative) Negative Urine Bilirubin (Negative) Negative Urine Urobilinogen (Up to 0.2) mg/dL 0.2 Ur Leukocyte Esterase (Negative) Large H Urine RBC (0-2) HPF 10-20 H Urine WBC (0-5) HPF >50 H Ur Epithelial Cells (Negative) HPF Few Urine Crystals (Negative) HPF Few Amorphous Urine Bacteria (Negative) HPF Many Urine Casts (Negative) LPF Negative Urine Mucus (Negative) Negative Urine Other (Negative) Rare Renal Ur Culture Indicated? Yes Urine Glucose (Negative) mg/dL Negative Medical Decision Making This is a 64-year-old female patient presenting for evaluation of dysuria. My differential includes but is not limited to urinary tract infection, most likely simple cystitis, I did consider pyelonephritis though the patient is without systemic symptoms or flank pain. She has no fever, tachycardia, or hypotension to suggest bacteremia or sepsis. She has no flank pain and has no personal history of renal stones. Given the brief duration and isolated nature of the symptoms I think it is reasonable to hold on advanced imaging or laboratory studies other than a urinalysis and urine culture. We obtained a urinalysis, which does show pyuria, leukocyte esterase, and hematuria concerning for infection. I provided the patient with a prescription for cephalexin for her UTI, and given the recurrent nature of her UTIs also provided her with a prescription for vaginal estrogen cream and recommended discussion with her primary care provider for continuation of this treatment. Her family member and the patient are understanding of the plan and need to follow-up in the outpatient environment, and we discussed return precautions to include fever, nausea or vomiting, abdominal pain, flank pain, etc. At this time, the patient has had a full medical evaluation and is safe for discharge to home. They are hemodynamically stable, ambulatory, and tolerating PO. They are understanding of the follow-up plan and return precautions. They left our facility without incident. Georgia Bowens MD Medical Records Medical records reviewed: Yes I reviewed the patient's medical records. Lab Data Lab results reviewed: Yes I reviewed the patient's lab results. Quality:[facility] Health Related Social Needs: No Data to Display [facility] All Active Problems (Updated 01/03/25 @ 16:44 by Georgia Bowens MD) UTI (urinary tract infection) (Acute) Urinary tract infection (Acute) High risk medication use (Acute) Dyspepsia (Acute) labs and EGD per [facility] note dated 03/11/24 cc Hypogammaglobulinemia (Acute) At high risk for infection (Acute) Per [facility] Hem Onc note 12/04/23 PIETER (acute kidney injury) (Acute) CMV (cytomegalovirus infection) (Acute) Unspecified type COVID (Acute) Severe protein-calorie malnutrition (Acute) 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 No AAA was noted on either CT scan form either 02/11/23 nor from 03/30/23. She has dilated ascending thoracic aorta of 3.65 cm (addendum added per Dr. Pagan) Please make correction in patient's office note Medical History (Updated 01/03/25 @ 16:44 by Georgia Bowens MD) Positive CMV IgG serology Surgical History (Updated 05/05/24 @ 11:44 by Arlene Sesay RN) H/O endoscopy (~04/20/24) 04/20/24-[facility]. Indication: Epigastric abdominal pain. referring: DO Licha; biopsied. Negative for H. Pylori. 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 F/u with Hem/Onc Social History Smoking/Tobacco Use Status: Never Second Hand Exposure: No Smoking risk assessment performed?: Yes Alcohol Intake: former Drug use: Never Substance use type: does not use Adopted: No Caregiver/Support person: No Foster care: No Household members: family Housing: house Number of Children: 4 Communication Needs: Language Barriers Do you need help understanding health information?: Always Pets and animals: No Sexually active: No Do you think of yourself as: straight/heterosexual Current gender identity: female What is your relationship status?: How often do you talk on the phone with friends or family?: once per week How often do you get together with friends or relatives?: once per week Do you belong to any clubs or organized social groups?: no Panel score (0-1 are the most socially isolated patients): 1 Emilia/Gnosticism: Christian Special emilia needs: No Seatbelt use: always Helmet use: Yes Helmet use: always Drive intox or ride w/intox locomotive driver: No Do you feel safe at home: Yes Do you feel safe in your relationship?: Yes
[2025-01-03] MEDS: Cephalexin 500 MG CAP, 4 CAPS/BTL PO (16:47)
== END 2025-01-03 16:52 | disposition home or self-care (01) ==
PROVIDERS: Emergency Provider Emergency Medicine; PCP Family Medicine
DX: N39.0 Urinary tract infection, site not specified (principal)
CPT/HCPCS: 99283 ×2; 81003; 81015; 87086

== ENCOUNTER 2025-05-19 00:18 | Outpatient (RCR) | payer BC, SELFPAY ==
[2025-04-25] MEDS: Normal Saline Flush 10 ML SYR IVP (07:30)
== END 2025-05-23 23:59 | disposition home or self-care (01) ==
LOC: INF 00:18
PROVIDERS: PCP Family Medicine; Visit Provider Internal Medicine Hematology & Oncology
DX: C91.00 Acute lymphoblastic leukemia not having achieved remission (principal); Z45.2 Encounter for adjustment and management of vascular access device
CPT/HCPCS: 36591